=== PATIENT | female | born 1980 | race Caucasian/White ===

== ENCOUNTER 2020-09-08 18:10 | Emergency (ER) | payer OTHER, SELFPAY ==
[2020-09-08 18:19] VITALS: BP 121/63; PULSE 75; RESP 16; TEMP 36.6; O2SAT 99; BMI 21.2
--- NOTE | 2020-09-08 18:41 | ED.SKABFB ---
HPI - Skin/Abscess/Foreign Bdy General Chief complaint: Skin/Abscess/Foreign Body Stated complaint: lac Time Seen by Provider: 09/08/20 18:33 Source: patient Mode of arrival: ambulatory History of Present Illness HPI narrative: 40-year-old female with no significant past medical history presenting to the ED complaining of laceration to left thumb s/p slicing it on broken ceramic mug around 3:00 p.m. this afternoon at work. Tetanus unknown. Denies crush injury/injury to other area, numbness/tingling, weakness, decreased range of motion, fever. complaint: laceration Related Data Allergies Allergy/AdvReac Type Severity Reaction Status Date / Time No Known Allergies Allergy Verified 09/08/20 18:23 Review of Systems Review of Systems: Constitutional: No Weight loss, No Fever, No Chills Musculoskeletal: No joint pain, No Myalgias, No Joint Swelling Skin: No Skin Lesions, No rash, +laceration Neuro: No Weakness, No Numbness, No Paresthesias Yes all other systems are reviewed and are negative [facility] Past Medical History Attestation statement: The following information was validated with the patient. Social History Social History Advance Directives: No Advance Directives Information Provided: No Physical Exam Vital Signs: Vital Signs: Last Vital Signs Temp 97.8 F 09/08/20 18:19 Pulse 75 09/08/20 18:19 Resp 16 09/08/20 18:19 BP 121/63 09/08/20 18:19 Pulse Ox 99 09/08/20 18:19 Body Mass Index 21.2 Const: General: cooperative and healthy appearing Orientation/consciousness: patient oriented x3 Limitations: no limitations HENMT: Head: Yes normal to inspection Ears: hearing grossly normal bilaterally General nose exam: Normal external nose present Face and sinus: Yes normal facial exam Eyes: General: appearance normal, both eyes and all related structures EOM: EOMs intact bilaterally Neck: Neck: Yes normal visual inspection and Yes no meningeal signs Resp: Effort & Inspection: normal respiratory effort Cardio: Rate: regular rate Peripheral pulses: radial pulses present GI: Inspection: Yes normal to inspection Skin: Rashes: no rashes Trauma: laceration (1.5cm superficial laceration to left thumb MCP volar aspect) Neuro: General: patient oriented x3 and no meningeal signs Gait exam (Neuro): Normal gait present Extrem: Other: Left hand/wrist with full range of motion. Neurovascularly intact. Tchugi-dw-[id number] opposition intact General: Yes normal to inspection Procedures Laceration Laceration 1: Site: hand (thumb) Side (If applicable): left Size (cm): 1.5 Description: linear Depth: simple, single layer Local Anesthetic: lidocaine 1% Amount of anesthesia used (mL): 2 Pre-repair: irrigated extensively Skin layer closed with: nylon Size (cm): 5-0 Number of sutures: 1 Technique: simple, interrupted MDM - Skin/Abscess/Foreign Bdy MDM Narrative Medical decision making narrative: 40-year-old female with no significant past medical history presenting to the ED complaining of laceration to left thumb s/p slicing it on broken ceramic mug around 3:00 p.m. this afternoon at work. On exam VSS, NAD, small superfiical laceration noted to L thumb. FROM/NV intact. Will update tetnus and suture wound Discharge Plan Discharge Clinical Impression: Laceration Patient Disposition: Home, Self-Care Instructions: Finger Laceration (ED) Additional Instructions: Your laceration was repaired today in the ED Keep dry for the next 24 hours Keep clean Keep covered if your work/in order area, however let air get to it if your at-home You need to return to the emergency department, or in Urgent Care in 7-10 days to have the suture removed Your tetanus was also updated today Area begins to look infected, is red, there is drainage, you have fever, swelling, or pain becomes unbearable return to the ED Referrals: Jess Cisneros MD [Primary Care Provider] - 1 week
[2020-09-08] MEDS: Lidocaine HCl 1 % MPF 5 ML VIAL SUBCUT (19:35)
== END 2020-09-08 19:49 | disposition home or self-care (01) ==
PROVIDERS: Emergency Provider Emergency Medicine; PCP Internal Medicine
DX: S61.012A Laceration without foreign body of left thumb without damage to nail, initial encounter (principal); W25.XXXA Contact with sharp glass, initial encounter; Y93.89 Activity, other specified; Y92.9 Unspecified place or not applicable; Y99.0 Civilian activity done for income or pay
CPT/HCPCS: 12001; 90471; 90715; 99284

== ENCOUNTER 2020-09-15 11:12 | Emergency (ER) | payer OTHER, SELFPAY ==
[2020-09-15 11:13] VITALS: BP 103/45; PULSE 802; RESP 18; TEMP 36.4; O2SAT 99; BMI 21.2
--- NOTE | 2020-09-15 11:44 | ED_ITS ---
HPI - Recheck/Abnormal Lab/Rx General Chief Complaint: Wound/Laceration Stated Complaint: SUTURE REMOVAL Time Seen by Provider: 09/15/20 11:37 Source: patient Mode of arrival: ambulatory Limitations: no limitations History of Present Illness HPI narrative: 40-year-old female presenting to the ED for suture removal after she was seen here on 09/08/2019 and had 1 suture placed to her left hand. Denies any complications. Related Data Previous Rx's Medication Instructions Recorded cephalexin 500 mg capsule 500 mg PO BID 7 Days #14 cap 09/12/20 Allergies Allergy/AdvReac Type Severity Reaction Status Date / Time No Known Allergies Allergy Verified 09/08/20 18:23 Review of Systems Review of Systems: Constitutional : No Fever, No Chills, Cardiovascular : No Chest Pain, No SOB Respiratory : No Dyspnea Gastrointestinal : No abdominal pain Musculoskeletal : No Joint Swelling Skin : No Foreign bodies, No rash, No surrounding erythema, no drainage Neuro : No Weakness, No Numbness/tingling Psych : No SI/HI/thoughts of self injury Yes all other systems are reviewed and are negative [facility] Past Medical History Attestation statement: The following information was validated with the patient. Social History Social History Advance Directives: No Advance Directives Information Provided: No Physical Exam Vital Signs: Vital Signs: Last Vital Signs Temp 97.5 F 09/15/20 11:13 Pulse 802 H 09/15/20 11:13 Resp 18 09/15/20 11:13 BP 103/45 L 09/15/20 11:13 Pulse Ox 99 09/15/20 11:13 Body Mass Index 21.2 vital signs have been reviewed as normal and appeared to be correct. Blood pressure normal. Heart rate normal. Respiration rate normal. Temperature normal. Oxygen saturation normal. Appearance: Alert. Oriented X3. No acute distress. Head: Normal external exam. Normocephalic. Eyes: PERRLA. EOMI. Conjunctiva and sclera normal. Eyelids normal. ENT: Pharynx normal. Uvula midline. Moist mucous membranes. Neck: Normal inspection. Neck supple. FROM. No adenopathy. No meningeal signs. CVS: Normal heart rate and rhythm. Heart sound normal. No murmurs noted. Pulses normal throughout. Respiratory: No respiratory distress. Painless inspiration. Breath sounds normal. No wheezes/rales/rhonchi noted. Chest nontender. No accessory muscle usage noted or decreased air movement noted. Back: No CVA tenderness. Full range of motion noted. Skin: Skin warm and dry. Normal skin color. Normal skin turgor. No rashes/lesions/lacerations noted. Extremities: To left hand dorsal aspect there is a healed wound with [address] no surrounding erythema/drainage/foreign bodies/streaking/induration or fluctuance or signs of infection noted. Extremities exhibit normal range of motion. Extremities nontender. Neuro: Oriented X 3. No motor deficit. No sensory deficit. Reflexes normal. Course Course Course Narrative: Patient is now status post suture removal. Tolerated procedure well. No complications. Will DC home at this time. MDM - Recheck/Abnormal Lab/Rx Medical Records Attestation: I reviewed the patient's medical records. Discharge Plan Discharge Clinical Impression: Visit for suture removal Patient Disposition: Home, Self-Care Instructions: Stitches Removal (ED) Prescriptions: No Action cephalexin [Keflex] 500 mg capsule 500 mg PO BID 7 Days Qty: 14 RF: 0 Referrals: Jess Cisneros MD [Primary Care Provider] - 2 days Print Language: Divehi
== END 2020-09-15 11:50 | disposition home or self-care (01) ==
PROVIDERS: Emergency Provider Emergency Medicine; PCP Internal Medicine
DX: Z48.02 Encounter for removal of sutures (principal); Z79.899 Other long term (current) drug therapy
CPT/HCPCS: 99283

== ENCOUNTER 2022-01-07 05:59 | Outpatient (REF) | payer OTHER, SELFPAY ==
[2022-01-07 08:08] LABS: Alanine Aminotransferase 14 U/L (0-31); Albumin Level 3.8 g/dL (3.5-5.0); Alkaline Phosphatase 48 U/L (39-117); Anion Gap 11 (12-20); Aspartate Amino Transferase 18 U/L (5-31); Bilirubin Total 0.6 mg/dL (0.0-1.0); Blood Urea Nitrogen 14 mg/dL (9-16); Carbon Dioxide 21 mmol/L (22-29); Chloride 109 mmol/L (96-108); Cholesterol 158 mg/dL; Estimated Glomerular Filt Rate > 60; Glucose Random 88 mg/dL (60-115); HDL Cholesterol 66 mg/dL; LDL Cholesterol Calculated 77 mg/dl; Potassium 4.6 mmol/L (3.3-5.1); Sodium 136 mmol/L (135-145); Total Protein 6.4 g/dL (6.5-8.0); Triglycerides 77 mg/dL
== END 2022-01-07 06:00 | disposition home or self-care (01) ==
LOC: HO.LAB 05:59
PROVIDERS: PCP Internal Medicine; Visit Provider Internal Medicine
DX: Z00.00 Encounter for general adult medical examination without abnormal findings (principal); Z13.220 Encounter for screening for lipoid disorders
CPT/HCPCS: 36415; 80053; 80061

== ENCOUNTER 2022-04-25 21:14 | Emergency (ER) | payer OTHER, SELFPAY ==
[2022-04-25 21:42] VITALS: BP 120/64; PULSE 70; RESP 16; TEMP 36.9; O2SAT 98
--- NOTE | 2022-04-25 22:22 | ED_ITS ---
HPI - General Adult General Chief complaint: General Medical Stated complaint: Left hand rash Time Seen by Provider: 04/25/22 22:19 Source: patient Mode of arrival: ambulatory Limitations: no limitations History of Present Illness HPI narrative: 42-year-old female presents with redness, itchiness and swelling to the left wrist status post burning herself a 3 weeks ago, patient tells me that she brought herself to the medial aspect of the left wrist, and this burn has been nonhealing, she tells me that the redness has gotten worse and has gotten extremely itchy. Her PCP prescribed her prednisone which did not work. She also mentions that this site is slightly warm. She denies numbness, tingling or pain with range of motion of wrist. Related Data Home Medications Medication Instructions Recorded Confirmed melatonin 10 mg capsule 10 mg PO BEDTIME PRN 12/20/21 01/01/22 byolmqip-gwqrcnf-qmui-iron 18 tab PO 12/20/21 01/01/22 mg-FA 400 mcg-vit K 25 mcg tablet (One-A-Day Women's Complete) norgestimate-ethinyl estradiol 1 tab PO DAILY 12/20/21 01/01/22 0.18 mg/0.215mg/0.25mg-35 mcg(28)tablet (Tri-Estarylla) Previous Rx's Medication Instructions Recorded bupropion HCl 150 mg 24 hr tablet, 150 mg PO QAM 90 days #90 tabs 01/29/22 extended release hydrocortisone 2.5 % topical cream 1 appl topical BID PRN skin 04/12/22 irritation #20 grams prednisone 10 mg tablet 10 mg PO DAILY PRN allergy 6 days 04/12/22 #12 tabs cephalexin 500 mg tablet 500 mg PO Q6H 7 days #28 tabs 04/25/22 doxycycline hyclate 100 mg capsule 100 mg PO BID 7 days #14 caps 04/25/22 hydroxyzine HCl 25 mg tablet 25 mg PO BEDTIME #10 tabs 04/25/22 prednisone 20 mg tablet 20 mg PO DAILY 5 days #5 tabs 04/25/22 Allergies Allergy/AdvReac Type Severity Reaction Status Date / Time No Known Allergies Allergy Verified 04/25/22 21:42 Review of Systems Review of Systems: Constitutional : No Fever, No Chills, Cardiovascular : No Chest Pain, No SOB Respiratory : No Dyspnea Gastrointestinal : No abdominal pain Musculoskeletal : No Joint Swelling Skin : + rash, No skin laceration Neuro : No Weakness, No Numbness Psych : No SI/HI Yes all other systems are reviewed and are negative [facility] Past Medical History Attestation statement: The following information was validated with the patient. Source: old records reviewed and nursing notes reviewed Medical History Foot pain Mild recurrent major depression Physical exam Surgical History History of esophagogastroduodenoscopy (EGD) History of tonsillectomy Family History Family History Father No problems noted. Mother Diabetes Hypertension Stroke Heart attack Social History Social History Housing: House Alcohol intake: current Alcohol intake frequency: a few times a week Alcohol type: wine Patient Tobacco Use Status: Current everyday Tobacco user Tobacco use type: Cigarette Cigarettes Per Day: 5 e-Cigarette/Vaping Use: Never Used Second Hand Smoke Exposure: No Advance Directives: No Advance Directives Information Provided: No service: No Current occupational status: employed Cognitive needs: No Hearing needs: No Vision needs: Yes Physical Exam ED Vital Signs: Vital Signs - 24 hr 04/25/22 21:42 Temperature 98.4 F Pulse Rate 70 Respiratory Rate 16 Blood Pressure 120/64 Pulse Oximetry 98 Oxygen Delivery Method Room Air BMI result Body Mass Index 20.0 vss Appearance: Alert.? Oriented X3.? No acute distress.? Head: Normocephalic, atraumatic, no step-offs or deformities Eyes: Pupils equal, round and reactive to light.? CVS: Normal heart rate and rhythm.? Pulses normal.? Respiratory: No respiratory distress.? Breath sounds normal.? Abdomen: Soft and nontender.? Skin: Skin warm and dry.? Normal skin color.? Normal skin turgor.?+ small healing burn to the medial aspect of left wrist, with overlying and surrounding cellulitis, warmth. Extremities: No lower extremity edema.? No calf ttp. 5/5 strength to bilateral upper and lower extremities Neuro: Oriented X 3.? No motor deficit.? No sensory deficit. CN 2-12 intact Course Reevaluation(s) Reevaluation #1: Patient will be discharged home with prednisone, Atarax for itchiness, doxycycline and Keflex. Advised to return with new or worsening symptoms. Outlined on her discharge, i feel comfortable w discharge w/ pcp follow up. Time: 22:24 Medical Decision Making MDM Narrative Medical decision making narrative: 2231 [age] years female presents with a nonhealing burn to the left risk with overlying cellulitis. Physical examination with cellulitis to left wrist, no pain with range of motion of wrist. History and physical examination consistent with cellulitis, unlikely septic joint. Plan at this time is to discharge patient home. Medical Records Medical records reviewed: Yes I reviewed the patient's medical records. Lab Data Lab results reviewed: Yes I reviewed the patient's lab results. Discharge Plan Discharge Clinical Impression: Cellulitis Patient Disposition: Home, Self-Care Instructions: Cellulitis (ED) Additional Instructions: Take your medications as prescribed. If you were prescribed antibiotics today, it is important that you take your medication to their entirety, do not skip any doses, do not finish them early. Follow-up with your primary care provider this week. Return to the emergency department with new or worsening symptoms. Such as fevers, chills, chest pain, shortness of breath, nausea, vomiting, dizziness, headache, vision changes, lethargy, numbness, tingling In case of emergency call 911 Prescriptions: New doxycycline hyclate 100 mg capsule 100 mg PO BID 7 Days Qty: 14 0RF prednisone 20 mg tablet 20 mg PO DAILY 5 Days Qty: 5 0RF cephalexin 500 mg tablet 500 mg PO Q6H 7 Days Qty: 28 0RF hydroxyzine HCl 25 mg tablet 25 mg PO BEDTIME Qty: 10 0RF No Action bupropion HCl 150 mg tablet extended release 24 hr 150 mg PO QAM 90 Days Qty: 90 0RF prednisone 10 mg tablet 10 mg PO DAILY PRN (Reason: allergy) 6 Days Qty: 12 0RF Rx Instructions: Take 3 tabs for 2 days, then 2 tabs for 2 days, then 1 tab for 2 days hydrocortisone 2.5 % cream 1 appl topical BID PRN (Reason: skin irritation) Qty: 20 0RF norgestimate-ethinyl estradiol [Tri-Estarylla] 0.18/0.215/0.25 mg-35 mcg (28) tablet 1 tab PO DAILY One-A-Day Women's Complete 18 mg-400 mcg- 25 mcg tablet PO melatonin 10 mg capsule 10 mg PO BEDTIME PRN Referrals: Jess Cisneros MD [Primary Care Provider] - 2 days Stand Alone Forms: Work/School Release
== END 2022-04-25 22:33 | disposition home or self-care (01) ==
PROVIDERS: Emergency Provider Internal Medicine; PCP Internal Medicine
DX: Z48.00 Encounter for change or removal of nonsurgical wound dressing (principal); L03.114 Cellulitis of left upper limb
CPT/HCPCS: 99282; 99283

== ENCOUNTER 2022-04-30 09:47 | Emergency (ER) | payer OTHER, SELFPAY ==
[2022-04-30 09:49] VITALS: BP 143/64; PULSE 108; RESP 18; TEMP 36.8; O2SAT 96
--- NOTE | 2022-04-30 10:21 | ED_ITS ---
HPI - Skin/Abscess/Foreign Bdy General Chief complaint: Skin/Abscess/Foreign Body Stated complaint: L arm swelling/pain/itching Time Seen by Provider: 04/30/22 09:53 Source: patient Mode of arrival: ambulatory History of Present Illness HPI narrative: 42-year-old female with a past medical history of cellulitis, presenting to the ED complaining of worsening rash to LUE over the past 3 weeks. Patient states symptoms initially began with burn to left wrist, saw PCP due to erythema and extreme itching, finished course of prednisone without relief. Patient was evaluated in our ED on 04/25/22 for worsening erythema/pruritus prescribed doxycycline/Keflex, hydroxyzine and 5 day course of prednisone with minimal relief. States symptoms have been waxing and waning since onset, worsening today. Does report history of very sensitive skin. Denies fever, chills, drainage from area, numbness, tingling, weakness, decreased ROM, SOB. Denies recent travel/camping, no tick or insect bites MD complaint: rash Onset (ago): week(s) Location: LUE Severity: similar to previous episodes Related Data Home Medications Medication Instructions Recorded Confirmed melatonin 10 mg capsule 10 mg PO BEDTIME PRN 12/20/21 01/01/22 uqqlezye-rbzqcfw-ckbl-iron 18 tab PO 12/20/21 01/01/22 mg-FA 400 mcg-vit K 25 mcg tablet (One-A-Day Women's Complete) norgestimate-ethinyl estradiol 1 tab PO DAILY 12/20/21 01/01/22 0.18 mg/0.215mg/0.25mg-35 mcg(28)tablet (Tri-Estarylla) Previous Rx's Medication Instructions Recorded bupropion HCl 150 mg 24 hr tablet, 150 mg PO QAM 90 days #90 tabs 01/29/22 extended release hydrocortisone 2.5 % topical cream 1 appl topical BID PRN skin 04/12/22 irritation #20 grams prednisone 10 mg tablet 10 mg PO DAILY PRN allergy 6 days 04/12/22 #12 tabs cephalexin 500 mg tablet 500 mg PO Q6H 7 days #28 tabs 04/25/22 doxycycline hyclate 100 mg capsule 100 mg PO BID 7 days #14 caps 04/25/22 hydroxyzine HCl 25 mg tablet 25 mg PO BEDTIME #10 tabs 04/25/22 prednisone 20 mg tablet 20 mg PO DAILY 5 days #5 tabs 04/25/22 cephalexin 500 mg capsule 500 mg PO QID 3 days #12 caps 04/30/22 cetirizine 10 mg tablet (Zyrtec) 10 mg PO DAILY #14 tabs 04/30/22 diphenhydramine HCl 25 mg capsule 25 mg PO TID PRN allergy symptoms 04/30/22 (Benadryl) #14 caps doxycycline hyclate 100 mg tablet 100 mg PO BID 3 days #6 tabs 04/30/22 triamcinolone acetonide 0.05 % 1 appl topical BID #110 grams 04/30/22 topical ointment Allergies Allergy/AdvReac Type Severity Reaction Status Date / Time No Known Allergies Allergy Verified 04/25/22 21:42 Review of Systems Review of Systems: Constitutional: No Fever, No Chills ENT/Mouth: No Ear Pain, No Nasal Congestion, No sore throat, No Rhinorrhea, No Swallowing Difficulty Cardiovascular: No Chest Pain, No SOB Respiratory: No Cough, No Sputum, No Wheezing Gastrointestinal: No Nausea, No Vomiting, No Diarrhea, No Constipation, No Abdominal pain Musculoskeletal: No joint pain, No Myalgias, No Joint Swelling Skin: No Skin Lesions, + rash Neuro: No Weakness, No Numbness, No Paresthesias Yes all other systems are reviewed and are negative Constitutional: Constitutional: Reports as per [facility] Past Medical History Attestation statement: The following information was validated with the patient. Medical History Foot pain Mild recurrent major depression Physical exam Surgical History History of esophagogastroduodenoscopy (EGD) History of tonsillectomy Family History Family History Father No problems noted. Mother Diabetes Hypertension Stroke Heart attack Social History Social History Housing: House Alcohol intake: current Alcohol intake frequency: a few times a week Alcohol type: wine Patient Tobacco Use Status: Current everyday Tobacco user Tobacco use type: Cigarette Cigarettes Per Day: 5 e-Cigarette/Vaping Use: Never Used Second Hand Smoke Exposure: No Advance Directives: Yes Advance Directives Information Provided: Yes Advance Directives on File: No service: No Current occupational status: employed Cognitive needs: No Hearing needs: No Vision needs: Yes Physical Exam Vital Signs: Vital Signs: Last Vital Signs Temp 98.3 F 04/30/22 09:49 Pulse 108 H 04/30/22 09:49 Resp 18 04/30/22 09:49 BP 143/64 H 04/30/22 09:49 Pulse Ox 96 04/30/22 09:49 O2 Del Method 04/30/22 09:49 BMI result Body Mass Index 20.0 Const: General: cooperative, healthy appearing and no acute distress Orientation/consciousness: patient oriented x3 Limitations: no limitations HEENT: Head: Yes normal to inspection and Yes atraumatic Ears: hearing grossly normal bilaterally General nose exam: Normal external nose present Face and sinus: Yes normal facial exam Mouth: Normal oral and palatal mucosa present Throat: Yes posterior oropharynx normal, Yes tonsils normal and Yes uvula midline Eyes: General: appearance normal, both eyes and all related structures EOM: EOMs intact bilaterally Neck: Neck: Yes normal visual inspection and Yes no meningeal signs Resp: Effort & Inspection: normal respiratory effort, not labored and no respiratory distress Auscultation: clear to auscultation bilaterally Cardio: Rate: regular rate Heart sounds: S1 normal heart sound present and S2 normal heart sound present Skin: Other: + small healing burn noted to distal medial aspect of left wrist with mild surrounding erythema/warmth. + Noted coalescing papular rash with overlying excoriations extending up forearm past elbow to distal upper arm. Not circumferential. Rash is blanchable. No mucous membrane or palm/sole involvement Full range of motion intact. Neurovascular intact Wounds: no wounds Neuro: General: patient oriented x3, tone normal and no meningeal signs Gait exam (Neuro): Normal gait present Extrem: General: Yes normal to inspection MDM - Skin/Abscess/Foreign Bdy MDM Narrative Medical decision making narrative: 42-year-old female with a past medical history of cellulitis, presenting to the ED complaining of worsening rash to LUE over the past 3 weeks. On exam mildly tachycardic likely due to anxiety, physical exam as above with noted burning and maculopapular rashes overlying excoriations, mildly warm to touch. Concern for allergic reaction/contact dermatitis with mild overlying cellulitis. Low suspicion for severe sepsis. Low concern for septic joint/arthritis. No evidence of anaphylaxis, lower concern for tick-borne illness Plan: Dermatology referral, extend doxycycline/Keflex to 10 day course, topical triamcinolone, p.o. Benadryl Results discussed with patient including worrisome signs and symptoms and strict return precautions, and when to return to the emergency department. They verbalized understanding and feel safe for discharge at this time. Medical Records Attestation: I reviewed the patient's medical records. Lab Data Attestation: I reviewed the patient's lab results. Discharge Plan Discharge Clinical Impression: Contact dermatitis Patient Disposition: Home, Self-Care Instructions: Contact Dermatitis (ED) Additional Instructions: Continue taking previously prescribed antibiotics, we extended your course to 10 full days Start using topical triamcinolone which is a topical steroid, avoid application to your hands, face, or genital region as potentially can discolored skin You can stop taking hydroxyzine and start taking Zyrtec daily in the morning as this will not make you drowsy. Also apply Eucerin which is an [id number]-tow-syulqae lotion Start taking Benadryl every 6 hours as needed for itching/allergic reaction symptoms. You need to follow-up with dermatology. If the area worsens, you have fever, drainage from any area, increased swelling or shortness of breath return to the emergency department Prescriptions: New diphenhydramine HCl [Benadryl] 25 mg capsule 25 mg PO TID PRN (Reason: allergy symptoms) Qty: 14 0RF cephalexin 500 mg capsule 500 mg PO QID 3 Days Qty: 12 0RF doxycycline hyclate 100 mg tablet 100 mg PO BID 3 Days Qty: 6 0RF cetirizine [Zyrtec] 10 mg tablet 10 mg PO DAILY Qty: 14 0RF triamcinolone acetonide 0.05 % ointment 1 appl topical BID Qty: 110 0RF No Action bupropion HCl 150 mg tablet extended release 24 hr 150 mg PO QAM 90 Days Qty: 90 0RF prednisone 10 mg tablet 10 mg PO DAILY PRN (Reason: allergy) 6 Days Qty: 12 0RF Rx Instructions: Take 3 tabs for 2 days, then 2 tabs for 2 days, then 1 tab for 2 days doxycycline hyclate 100 mg capsule 100 mg PO BID 7 Days Qty: 14 0RF prednisone 20 mg tablet 20 mg PO DAILY 5 Days Qty: 5 0RF cephalexin 500 mg tablet 500 mg PO Q6H 7 Days Qty: 28 0RF hydroxyzine HCl 25 mg tablet 25 mg PO BEDTIME Qty: 10 0RF hydrocortisone 2.5 % cream 1 appl topical BID PRN (Reason: skin irritation) Qty: 20 0RF norgestimate-ethinyl estradiol [Tri-Estarylla] 0.18/0.215/0.25 mg-35 mcg (28) tablet 1 tab PO DAILY One-A-Day Women's Complete 18 mg-400 mcg- 25 mcg tablet PO melatonin 10 mg capsule 10 mg PO BEDTIME PRN Referrals: Sagrario Peguero PA [Physician Automobile Damage Field Appraiser] - Romero Johns MD [Physician] - Dawna Lloyd NP [Nurse Practitioner] - Yaritza Wild MD [Physician] - MARIEL SEWELL [Physician Automobile Damage Field Appraiser] - Stand Alone Forms: Work/School Release
[2022-04-30] MEDS: diphenhydrAMINE HCL 25 MG TABLET PO (10:32)
== END 2022-04-30 11:19 | disposition home or self-care (01) ==
PROVIDERS: Emergency Provider Emergency Medicine; PCP Internal Medicine
DX: R60.0 Localized edema (principal); L25.9 Unspecified contact dermatitis, unspecified cause; F17.210 Nicotine dependence, cigarettes, uncomplicated; Z71.6 Tobacco abuse counseling; Z79.899 Other long term (current) drug therapy
CPT/HCPCS: 99283; Q0163

== ENCOUNTER 2022-10-15 08:04 | Outpatient (REF) | payer OTHER, SELFPAY ==
[2022-10-15 09:37] LABS: Hematocrit 36.7 % (37.0-47.0); Hemoglobin 12.4 g/dl (12.0-16.0); Mean Corpuscular HGB Conc 33.8 g/dl (31.0-35.0); Mean Corpuscular Hemoglobin 32.5 pg (27.0-33.0); Mean Corpuscular Volume 96.1 fL (80.0-98.0); Mean Platelet Volume 11.7 fL (9.4-12.3); Platelet Count 210 X10*3/uL (160-400); Red Blood Count 3.82 X10*6/uL (4.20-5.50); Red Cell Distribution Width 12.2 % (11.0-16.0); White Blood Count 6.1 X10*3/uL (4.8-10.8)
[2022-10-15 10:35] LABS: Alanine Aminotransferase 21 U/L (0-31); Albumin Level 4.1 g/dL (3.5-5.0); Alkaline Phosphatase 48 U/L (39-117); Anion Gap 13 (12-20); Aspartate Amino Transferase 21 U/L (5-31); Bilirubin Total 0.3 mg/dL (0.0-1.0); Blood Urea Nitrogen 17 mg/dL (9-16); C Reactive Protein < 0.10 mg/dL (< or = 0.50); Calcium 9.1 mg/dL (8.4-10.2); Carbon Dioxide 22 mmol/L (22-29); Chloride 110 mmol/L (96-108); Estimated Glomerular Filt Rate > 60; Glucose Random 92 mg/dL (60-115); Iron 81 mcg/dL (30-160); Percent Iron Saturation 24 % (15-50); Potassium 4.8 mmol/L (3.3-5.1); Sodium 140 mmol/L (135-145); Total Iron Binding Capacity 344 mcg/dL (228-428); Total Protein 6.5 g/dL (6.5-8.0); Unsaturated Iron Binding 263 ug/dL
[2022-10-15 10:42] LABS: Ferritin 88 ng/mL (10-250)
[2022-10-15 11:16] LABS: Free T4 (Free Thyroxine) 0.75 ng/dL (0.71-1.85)
[2022-10-15 14:26] LABS: Campylobacter Not Detected (Not Detect.); E. coli EAEC Not Detected (Not Detect.); Plesiomonas shigelloides Not Detected (Not Detect.); Salmonella Not Detected (Not Detect.); Vibrio Not Detected (Not Detect.); Vibrio Cholerae Not Detected (Not Detect.); Yersinia enterocolitica Not Detected (Not Detect.)
[2022-10-15 14:27] LABS: Adenovirus F 40/41 Not Detected (Not Detect.); Astrovirus Not Detected (Not Detect.); Cryptosporidium Not Detected (Not Detect.); Cyclospora cayetanensis Not Detected (Not Detect.); E. coli EPEC Not Detected (Not Detect.); E. coli ETEC Not Detected (Not Detect.); E. coli STEC Not Detected (Not Detect.); Entamoeba histolytica Not Detected (Not Detect.); Giardia lamblia Not Detected (Not Detect.); Norovirus GI/GII Not Detected (Not Detect.); Rotavirus A Not Detected (Not Detect.); Sapovirus Not Detected (Not Detect.); Shigella sp./EIEC Not Detected (Not Detect.)
[2022-10-17 13:28] LABS: Transglutaminase IgA <1.0 U/mL
[2022-10-17 14:23] LABS: Immunoglobulin A 169 mg/dL (47-310)
[2022-10-21 02:10] LABS: Calprotectin, Fecal 10 mcg/g
== END 2022-10-15 08:05 | disposition home or self-care (01) ==
LOC: HO.LAB 08:04
PROVIDERS: PCP Internal Medicine; Visit Provider Internal Medicine
DX: R10.9 Unspecified abdominal pain (principal); R19.7 Diarrhea, unspecified; F17.210 Nicotine dependence, cigarettes, uncomplicated
CPT/HCPCS: 36415; 80053; 82306; 82728; 82784; 83540; 83993; 84439; 84443; 85027; 86140; 86364; 87507; 99202

== ENCOUNTER 2022-10-26 23:41 | Emergency (ER) | payer OTHER, SELFPAY ==
[2022-10-26 23:52] VITALS: BP 123/66; PULSE 85; RESP 16; TEMP 36.6; O2SAT 100; BMI 21.2
[2022-10-27 01:34] LABS: MANUAL DIFF FLAG NO
[2022-10-27 01:39] LABS: Basophils Absolute Auto 0.1 X10*3/uL (0.0-0.2); Basophils Percent Auto 0.8 % (0-2); Eosinophils Absolute Auto 0.3 X10*3/uL (0.0-0.4); Eosinophils Percent Auto 4.5 % (0-4); Hematocrit 35.7 % (37.0-47.0); Imm Gran Abs Auto 0.03 X10*3/uL (0.00-0.03); Imm Gran Pct Auto 0.4 % (0.0-0.4); Lymphocytes Absolute Auto 1.8 X10*3/uL (1.2-4.9); Lymphocytes Percent Auto 24.4 % (20-40); Mean Corpuscular HGB Conc 33.6 g/dl (31.0-35.0); Mean Corpuscular Hemoglobin 32.1 pg (27.0-33.0); Mean Corpuscular Volume 95.5 fL (80.0-98.0); Mean Platelet Volume 10.9 fL (9.4-12.3); Monocytes Absolute Auto 0.7 X10*3/uL (0.1-1.2); Monocytes Percent Auto 9.1 % (2-11); Neutrophils Absolute Auto 4.5 x10*3/uL (2.0-8.3); Neutrophils Percent Auto 60.8 % (45-73); Platelet Count 153 X10*3/uL (160-400); Red Blood Count 3.74 X10*6/uL (4.20-5.50); Red Cell Distribution Width 11.9 % (11.0-16.0); White Blood Count 7.4 X10*3/uL (4.8-10.8)
[2022-10-27 01:54] LABS: Alanine Aminotransferase 20 U/L (0-31); Albumin Level 3.9 g/dL (3.5-5.0); Alkaline Phosphatase 52 U/L (39-117); Anion Gap 14 (12-20); Aspartate Amino Transferase 20 U/L (5-31); Bilirubin Total 0.2 mg/dL (0.0-1.0); Blood Urea Nitrogen 11 mg/dL (9-16); Calcium 8.7 mg/dL (8.4-10.2); Carbon Dioxide 22 mmol/L (22-29); Chloride 110 mmol/L (96-108); Estimated Glomerular Filt Rate > 60; Glucose Random 99 mg/dL (60-115); Potassium 4.5 mmol/L (3.3-5.1); Sodium 141 mmol/L (135-145); Total Protein 6.3 g/dL (6.5-8.0)
--- NOTE | 2022-10-27 01:57 | ED.FEMALEGU ---
HPI - Female Genitourinary General Chief complaint: Skin/Abscess/Foreign Body Stated complaint: hemorroids/abscess Time Seen by Provider: 10/27/22 01:57 Source: patient Mode of arrival: ambulatory Limitations: no limitations History of Present Illness HPI Narrative: Patient history of hemorrhoids complaining of increased pain and swelling since yesterday with small amount of blood while moving her bowels also has a rash around that area after she applied some cream for hemorrhoids Related Data Home Medications Medication Instructions Recorded Confirmed melatonin 10 mg capsule 10 mg PO BEDTIME PRN 12/20/21 01/01/22 voquoqhj-twsteqh-scjo-iron 18 tab PO 12/20/21 01/01/22 mg-FA 400 mcg-vit K 25 mcg tablet (One-A-Day Women's Complete) norgestimate-ethinyl estradiol 1 tab PO DAILY 12/20/21 01/01/22 0.18 mg/0.215mg/0.25mg-35 mcg(28)tablet (Tri-Estarylla) Previous Rx's Medication Instructions Recorded bupropion HCl 150 mg 24 hr tablet, 150 mg PO QAM 90 days #90 tabs 01/29/22 extended release hydrocortisone 2.5 % topical cream 1 appl topical BID PRN skin 04/12/22 irritation #20 grams prednisone 10 mg tablet 10 mg PO DAILY PRN allergy 6 days 04/12/22 #12 tabs cephalexin 500 mg tablet 500 mg PO Q6H 7 days #28 tabs 04/25/22 doxycycline hyclate 100 mg capsule 100 mg PO BID 7 days #14 caps 04/25/22 hydroxyzine HCl 25 mg tablet 25 mg PO BEDTIME #10 tabs 04/25/22 prednisone 20 mg tablet 20 mg PO DAILY 5 days #5 tabs 04/25/22 cephalexin 500 mg capsule 500 mg PO QID 3 days #12 caps 04/30/22 cetirizine 10 mg tablet (Zyrtec) 10 mg PO DAILY #14 tabs 04/30/22 diphenhydramine HCl 25 mg capsule 25 mg PO TID PRN allergy symptoms 04/30/22 (Benadryl) #14 caps doxycycline hyclate 100 mg tablet 100 mg PO BID 3 days #6 tabs 04/30/22 triamcinolone acetonide 0.05 % 1 appl topical BID #110 grams 04/30/22 topical ointment hydrocortisone acetate 25 mg 25 mg [place] BID #12 ea 10/27/22 rectal suppository (Anusol-HC) Allergies Allergy/AdvReac Type Severity Reaction Status Date / Time No Known Allergies Allergy Verified 10/26/22 23:56 Review of Systems Review of Systems: Yes all other systems are reviewed and are negative FOR[facility]LY [facility] Past Medical History Medical History Foot pain Mild recurrent major depression Physical exam Surgical History History of esophagogastroduodenoscopy (EGD) History of tonsillectomy Family History Family History Father No problems noted. Mother Diabetes Hypertension Stroke Heart attack Social History Social History Housing: House Alcohol intake: current Alcohol intake frequency: a few times a week Alcohol type: wine Patient Tobacco Use Status: Current everyday Tobacco user Tobacco use type: Cigarette Cigarettes Per Day: 5 e-Cigarette/Vaping Use: Never Used Second Hand Smoke Exposure: No Advance Directives: No service: No Current occupational status: employed Cognitive needs: No Hearing needs: No Vision needs: Yes Physical Exam Vital Signs: Vital Signs: Last Vital Signs Temp 97.8 F 10/26/22 23:52 Pulse 85 10/26/22 23:52 Resp 16 10/26/22 23:52 BP 123/66 10/26/22 23:52 Pulse Ox 100 10/26/22 23:52 O2 Del Method 10/26/22 23:52 BMI result Body Mass Index 21.2 Appearance: Alert. Oriented X3. No acute distress. ENT: Pharynx normal. Oral Mucosa moist Neck: Normal inspection. Neck supple. CVS: Normal heart rate and rhythm. Pulses normal. Respiratory: No respiratory distress. Equal air entry bilateral, Abdomen: Soft and nontender. Bowel sounds are present, Skin: Skin warm and dry. Normal skin color. Normal skin turgor. Rectal: Thrombosed tender external hemorrhoid red 03:00 o'clock and 06:00 o'clock Extremities: No lower extremity edema. No calf tenderness Neuro: Oriented X 3. Medications Administered Discontinued Medications Generic Name Dose Route Start Last Admin Trade Name Shania PRN Reason Stop Dose Admin Diphenhydramine HCl 50 mg 10/27/22 02:37 10/27/22 02:46 Diphenhydramine Hcl 25 Mg Capsule PO 10/27/22 02:38 50 mg ONCE ONE Administration Medical Decision Making Lab Data 10/27/22 01:29 10/27/22 01:29 Labs: Lab Results 10/27/22 10/27/22 Range/Units 01:29 01:29 WBC 7.4 (4.8-10.8) X10*3/uL RBC 3.74 L (4.20-5.50) X10*6/uL Hgb 12.0 (12.0-16.0) g/dl Hct 35.7 L (37.0-47.0) % MCV 95.5 (80.0-98.0) fL MCH 32.1 (27.0-33.0) pg MCHC 33.6 (31.0-35.0) g/dl RDW 11.9 (11.0-16.0) % Plt Count 153 L D (160-400) X10*3/uL MPV 10.9 (9.4-12.3) fL Immature Gran % (Auto) 0.4 (0.0-0.4) % Neut % (Auto) 60.8 (45-73) % Lymph % (Auto) 24.4 (20-40) % [place] % (Auto) 9.1 (2-11) % Eos % (Auto) 4.5 H (0-4) % Baso % (Auto) 0.8 (0-2) % Lymph # (Auto) 1.8 (1.2-4.9) X10*3/uL [place] # (Auto) 0.7 (0.1-1.2) X10*3/uL Eos # (Auto) 0.3 (0.0-0.4) X10*3/uL Baso # (Auto) 0.1 (0.0-0.2) X10*3/uL Abs Immat Gran (auto) 0.03 (0.00-0.03) X10*3/uL Absolute Neuts (auto) 4.5 (2.0-8.3) x10*3/uL Absolute Nucleated RBC 0.000 (0.0-0.012) X10*3/uL Nucleated RBC % (auto) 0.0 (0.0-0.2) /100WBC Sodium 141 (135-145) mmol/L Potassium 4.5 (3.3-5.1) mmol/L Chloride 110 H (96-108) mmol/L Carbon Dioxide 22 (22-29) mmol/L Anion Gap 14 (12-20) BUN 11 (9-16) mg/dL Creatinine 0.71 (0.5-1.4) mg/dL Estim Creat Clear Calc 91.0 Estimated GFR > 60 Random Glucose 99 (60-115) mg/dL Calcium 8.7 (8.4-10.2) mg/dL Total Bilirubin 0.2 (0.0-1.0) mg/dL AST 20 (5-31) U/L ALT 20 (0-31) U/L Alkaline Phosphatase 52 (39-117) U/L Total Protein 6.3 L (6.5-8.0) g/dL Albumin 3.9 (3.5-5.0) g/dL Procedures Procedure Narrative Procedure Narrative: Excision and clot evacuation of thrombosed hemorrhoid: Lidocaine 1% with epi 1 cc was used and Anne elliptical incision were made at 2 locations 03:00 o'clock and 06:00 o'clock and blood clot was removed patient him felt much better pain improved Discharge Plan Discharge Clinical Impression: External hemorrhoid, thrombosed Patient Disposition: Home, Self-Care Instructions: Hemorrhoids (ED) Additional Instructions: Blood clot was removed you may continue to bleed for some time Suppository twice daily as advised Avoid straining/constipation Follow-up with surgeon if not better Prescriptions: New hydrocortisone acetate [Anusol-HC] 25 mg suppository 25 mg [place] BID Qty: 12 0RF No Action bupropion HCl 150 mg tablet extended release 24 hr 150 mg PO QAM 90 Days Qty: 90 0RF prednisone 10 mg tablet 10 mg PO DAILY PRN (Reason: allergy) 6 Days Qty: 12 0RF Rx Instructions: Take 3 tabs for 2 days, then 2 tabs for 2 days, then 1 tab for 2 days doxycycline hyclate 100 mg capsule 100 mg PO BID 7 Days Qty: 14 0RF prednisone 20 mg tablet 20 mg PO DAILY 5 Days Qty: 5 0RF cephalexin 500 mg tablet 500 mg PO Q6H 7 Days Qty: 28 0RF hydroxyzine HCl 25 mg tablet 25 mg PO BEDTIME Qty: 10 0RF diphenhydramine HCl [Benadryl] 25 mg capsule 25 mg PO TID PRN (Reason: allergy symptoms) Qty: 14 0RF cephalexin 500 mg capsule 500 mg PO QID 3 Days Qty: 12 0RF doxycycline hyclate 100 mg tablet 100 mg PO BID 3 Days Qty: 6 0RF cetirizine [Zyrtec] 10 mg tablet 10 mg PO DAILY Qty: 14 0RF triamcinolone acetonide 0.05 % ointment 1 appl topical BID Qty: 110 0RF hydrocortisone 2.5 % cream 1 appl topical BID PRN (Reason: skin irritation) Qty: 20 0RF norgestimate-ethinyl estradiol [Tri-Estarylla] 0.18/0.215/0.25 mg-35 mcg (28) tablet 1 tab PO DAILY One-A-Day Women's Complete 18 mg-400 mcg- 25 mcg tablet PO melatonin 10 mg capsule 10 mg PO BEDTIME PRN Interventions: ED Discharge Assessment Last Done: 10/27/22 02:52 Discharge Date/Time: 10/27/22 02:52
[2022-10-27] MEDS: diphenhydrAMINE HCL 25 MG CAPSULE 50 MG PO (02:46)
== END 2022-10-27 02:52 | disposition home or self-care (01) ==
PROVIDERS: Emergency Provider Internal Medicine; PCP Internal Medicine
DX: K64.5 Perianal venous thrombosis (principal); Z79.899 Other long term (current) drug therapy
CPT/HCPCS: 36415; 80053; 85025; 99282

== ENCOUNTER 2022-11-01 23:45 | Emergency (ER) | payer OTHER, SELFPAY ==
[2022-11-02 00:06] VITALS: BP 107/68; PULSE 81; RESP 16; TEMP 37.2; O2SAT 100; BMI 21.6
--- NOTE | 2022-11-02 00:15 | ED.SKABFB ---
HPI - Skin/Abscess/Foreign Bdy General Chief complaint: Skin/Abscess/Foreign Body Stated complaint: Rash? here last week for same Time Seen by Provider: 11/02/22 00:14 Source: patient Mode of arrival: ambulatory Limitations: no limitations History of Present Illness HPI narrative: 42-year-old female presents with rash around the rectal region times 7 days, minimally improving and itchy rash throughout body. Patient tells me she was seen here for hemorrhoid on October 27, she mention to the doctor that day that she had a rash around the rectum, however no specific recommendation was made. She saw her PCP who rx a medication for rectal ithcing it has been helping a little. She reports she thinks that the rash is still there because it is warm and itchy. She tells me her rectal area is slightly itchy and irritated. Rash throughout body started after stating topical cream sent by PCP, the rash throughout body is itchy. Taking Benadryl for sx. Denies fevers, chills, foreign travel, chest pain, shortness of breath, nausea, vomiting, diarrhea. Patient tells me she had a hemorrhoid lanced when she was here that day. Related Data Home Medications Medication Instructions Recorded Confirmed melatonin 10 mg capsule 10 mg PO BEDTIME PRN 12/20/21 01/01/22 pwvirbuq-fkgzwkc-tcaf-iron 18 tab PO 12/20/21 01/01/22 mg-FA 400 mcg-vit K 25 mcg tablet (One-A-Day Women's Complete) norgestimate-ethinyl estradiol 1 tab PO DAILY 12/20/21 01/01/22 0.18 mg/0.215mg/0.25mg-35 mcg(28)tablet (Tri-Estarylla) Previous Rx's Medication Instructions Recorded bupropion HCl 150 mg 24 hr tablet, 150 mg PO QAM 90 days #90 tabs 01/29/22 extended release hydrocortisone 2.5 % topical cream 1 appl topical BID PRN skin 04/12/22 irritation #20 grams prednisone 10 mg tablet 10 mg PO DAILY PRN allergy 6 days 04/12/22 #12 tabs cephalexin 500 mg tablet 500 mg PO Q6H 7 days #28 tabs 04/25/22 doxycycline hyclate 100 mg capsule 100 mg PO BID 7 days #14 caps 04/25/22 hydroxyzine HCl 25 mg tablet 25 mg PO BEDTIME #10 tabs 04/25/22 prednisone 20 mg tablet 20 mg PO DAILY 5 days #5 tabs 04/25/22 cephalexin 500 mg capsule 500 mg PO QID 3 days #12 caps 04/30/22 cetirizine 10 mg tablet (Zyrtec) 10 mg PO DAILY #14 tabs 04/30/22 diphenhydramine HCl 25 mg capsule 25 mg PO TID PRN allergy symptoms 04/30/22 (Benadryl) #14 caps doxycycline hyclate 100 mg tablet 100 mg PO BID 3 days #6 tabs 04/30/22 triamcinolone acetonide 0.05 % 1 appl topical BID #110 grams 04/30/22 topical ointment hydrocortisone acetate 25 mg 25 mg [place] BID #12 ea 10/27/22 rectal suppository (Anusol-HC) cephalexin 500 mg tablet 500 mg PO Q6H 10 days #40 tabs 11/02/22 hydroxyzine HCl 25 mg tablet 25 mg PO TID PRN itching #20 tabs 11/02/22 prednisone 20 mg tablet 40 mg PO DAILY 5 days #10 tabs 11/02/22 Allergies Allergy/AdvReac Type Severity Reaction Status Date / Time No Known Allergies Allergy Verified 10/26/22 23:56 Review of Systems Review of Systems: Constitutional : No Weight loss, No Fever, No Chills, No Fatigue, No Malaise ENT/Mouth : No sore throat, No Rhinorrhea Eyes: No Eye Pain, No Swelling, No Redness Cardiovascular : No Chest Pain, No SOB, No Dyspnea on Exertion, No Orthopnea, No Edema, No Palpitations Respiratory : No Cough, No Sputum, No Wheezing Gastrointestinal : No Nausea, No Vomiting, No Diarrhea, No Constipation, No abdominal Pain, No Hematochezia, No Melena Genitourinary : No Dysuria, No Urinary Frequency, No Hematuria, Musculoskeletal : No joint pain, No Myalgias, No Joint Swelling Skin : No Skin Lesions, + rash Neuro : No Weakness, No Numbness, No Dizziness, No Headache Psych : No Anxiety/Panic, No Depression All other systems reviewed and are negative Yes all other systems are reviewed and are negative PMFSH Past Medical History Attestation statement: The following information was validated with the patient. Source: old records reviewed and nursing notes reviewed Medical History Foot pain Mild recurrent major depression Physical exam Surgical History History of esophagogastroduodenoscopy (EGD) History of tonsillectomy Family History Family History Father No problems noted. Mother Diabetes Hypertension Stroke Heart attack Social History Social History Housing: House Alcohol intake: current Alcohol intake frequency: a few times a week Alcohol type: wine Patient Tobacco Use Status: Current everyday Tobacco user Tobacco use type: Cigarette Cigarettes Per Day: 5 e-Cigarette/Vaping Use: Never Used Second Hand Smoke Exposure: No Advance Directives: No Advance Directives Information Provided: No service: No Current occupational status: employed Cognitive needs: No Hearing needs: No Vision needs: Yes Physical Exam Vital Signs: Vital Signs: Last Vital Signs Temp 98.9 F 11/02/22 00:06 Pulse 81 11/02/22 00:06 Resp 16 11/02/22 00:06 BP 107/68 11/02/22 00:06 Pulse Ox 100 11/02/22 00:06 O2 Del Method 11/02/22 00:06 BMI result Body Mass Index 21.6 vss Appearance: Alert.? Oriented X3.? No acute distress.? Head: Normocephalic, atraumatic, no step-offs or deformities Eyes: Pupils equal, round and reactive to light.? CVS: Normal heart rate and rhythm.? Pulses normal.? Respiratory: No respiratory distress.? Breath sounds normal.? Abdomen: Soft and nontender.? Skin: Skin warm and dry.? Normal skin color.? Normal skin turgor.?Diffuse maculopapular rash to bilateral upper extremities, bilateral lower extremities and to trunk. Sensitive exam:slight erythema around the rectum with excoriations from scratching. Healing incision from elliptical incision made during external hemorrhoid removal. Rectum without discharge. Extremities: No lower extremity edema.? No calf ttp. 5/5 strength to bilateral upper and lower extremities Neuro: Oriented X 3.? No motor deficit.? No sensory deficit. CN 2-12 intact Course Reevaluation(s) Reevaluation #1: Patient will receive 1st dose of Keflex and prednisone here. I suspect allergic reaction as well as cellulitis. Patient is scheduled to see Allergy doctor on Friday. Educated patient on diagnosis and treatment plan, answered all question, patient verbalizes understanding. At this time patient will be discharged home, advised to return with new or worsening symptoms. Educated on worrisome signs and symptoms and when to return. At this time I feel comfortable discharge home. Time: 00:37 Medical Decision Making Medical Decision Making [facility] Narrative: 0017 42-year-old female presents for anal pruritus and rash and rash throughout body times a few days, worsened status post getting topical cream from PCP. Denies fevers, chills. Physical exam with slight erythema around the rectum with excoriations from scratching. Healing incision from elliptical incision made during external hemorrhoid removal. Diffuse maculopapular rash to bilateral upper extremities, bilateral lower extremities and to trunk. Likely irritation versus cellulitis with likely superimposed allergic reaction. Unlikely ova or parasites. No signs of fungal infection. No signs of Ky's gangrene or necrotizing infection. No signs of SJS or TEN Differential Diagnosis Differential Diagnoses: The differential diagnosis associated with the presentation includes Likely irritation versus cellulitis with likely superimposed allergic reaction. Unlikely ova or parasites. No signs of fungal infection. No signs of Ky's gangrene or necrotizing infection. No signs of SJS or TEN Admission/Observation Consideration of admission/observation: Escalation of care including admission/observation considered Core Measures AMI core measures followed: Yes Measure exclusions: not indicated Critical Care Time Critical Care Time Critical Care Time: No Discharge Plan Discharge Clinical Impression: Anal itch, Cellulitis, Allergic reaction Patient Disposition: Home, Self-Care Instructions: Anal Itching (ED), Cellulitis (ED), Allergy Testing (ED) Additional Instructions: Take your medications as prescribed. If you were prescribed antibiotics today, it is important that you take your medication to their entirety, do not skip any doses, do not finish them early. Follow-up with your primary care provider this week. Return to the emergency department with new or worsening symptoms. Such as fevers, chills, chest pain, shortness of breath, nausea, vomiting, dizziness, headache, vision changes, lethargy In case of emergency call 911 I have sent Atarax to your pharmacy, please do not take this with Benadryl. Please take antibiotics for suspected superficial skin infection. Also take prednisone for allergic reaction. Prescriptions: New cephalexin 500 mg tablet 500 mg PO Q6H 10 Days Qty: 40 0RF hydroxyzine HCl 25 mg tablet 25 mg PO TID PRN (Reason: itching) Qty: 20 0RF prednisone 20 mg tablet 40 mg PO DAILY 5 Days Qty: 10 0RF No Action bupropion HCl 150 mg tablet extended release 24 hr 150 mg PO QAM 90 Days Qty: 90 0RF prednisone 10 mg tablet 10 mg PO DAILY PRN (Reason: allergy) 6 Days Qty: 12 0RF Rx Instructions: Take 3 tabs for 2 days, then 2 tabs for 2 days, then 1 tab for 2 days doxycycline hyclate 100 mg capsule 100 mg PO BID 7 Days Qty: 14 0RF prednisone 20 mg tablet 20 mg PO DAILY 5 Days Qty: 5 0RF cephalexin 500 mg tablet 500 mg PO Q6H 7 Days Qty: 28 0RF hydroxyzine HCl 25 mg tablet 25 mg PO BEDTIME Qty: 10 0RF diphenhydramine HCl [Benadryl] 25 mg capsule 25 mg PO TID PRN (Reason: allergy symptoms) Qty: 14 0RF cephalexin 500 mg capsule 500 mg PO QID 3 Days Qty: 12 0RF doxycycline hyclate 100 mg tablet 100 mg PO BID 3 Days Qty: 6 0RF cetirizine [Zyrtec] 10 mg tablet 10 mg PO DAILY Qty: 14 0RF triamcinolone acetonide 0.05 % ointment 1 appl topical BID Qty: 110 0RF hydrocortisone acetate [Anusol-HC] 25 mg suppository 25 mg [place] BID Qty: 12 0RF hydrocortisone 2.5 % cream 1 appl topical BID PRN (Reason: skin irritation) Qty: 20 0RF norgestimate-ethinyl estradiol [Tri-Estarylla] 0.18/0.215/0.25 mg-35 mcg (28) tablet 1 tab PO DAILY One-A-Day Women's Complete 18 mg-400 mcg- 25 mcg tablet PO melatonin 10 mg capsule 10 mg PO BEDTIME PRN Referrals: ED Physician,Generic [Emergency Provider] - 2 days Physician,Unknown J [Physician] - Stand Alone Forms: Work/School Release
[2022-11-02] MEDS: cephALEXin 500 MG CAPSULE PO (01:12)
[2022-11-02] MEDS: predniSONE 20 MG TABLET 40 MG PO (01:12)
== END 2022-11-02 01:29 | disposition home or self-care (01) ==
PROVIDERS: Emergency Provider Emergency Medicine Emergency Medical Services; PCP Internal Medicine
DX: K61.1 Rectal abscess (principal); L25.1 Unspecified contact dermatitis due to drugs in contact with skin; T50.995A Adverse effect of other drugs, medicaments and biological substances, initial encounter; Y92.019 Unspecified place in single-family (private) house as the place of occurrence of the external cause
CPT/HCPCS: 99283; 99284

== ENCOUNTER 2023-01-10 06:01 | Outpatient (REF) | payer OTHER, SELFPAY ==
[2023-01-10 06:12] LABS: MANUAL DIFF FLAG NO
[2023-01-10 07:27] LABS: Basophils Absolute Auto 0.1 X10*3/uL (0.0-0.2); Eosinophils Absolute Auto 0.2 X10*3/uL (0.0-0.4); Eosinophils Percent Auto 3.2 % (0-4); Hematocrit 36.4 % (37.0-47.0); Hemoglobin 12.1 g/dl (12.0-16.0); Imm Gran Abs Auto 0.01 X10*3/uL (0.00-0.03); Imm Gran Pct Auto 0.2 % (0.0-0.4); Lymphocytes Absolute Auto 1.8 X10*3/uL (1.2-4.9); Lymphocytes Percent Auto 36.4 % (20-40); Mean Corpuscular HGB Conc 33.2 g/dl (31.0-35.0); Mean Corpuscular Hemoglobin 31.7 pg (27.0-33.0); Mean Corpuscular Volume 95.3 fL (80.0-98.0); Mean Platelet Volume 11.4 fL (9.4-12.3); Monocytes Absolute Auto 0.4 X10*3/uL (0.1-1.2); Monocytes Percent Auto 8.5 % (2-11); Neutrophils Absolute Auto 2.6 x10*3/uL (2.0-8.3); Neutrophils Percent Auto 50.7 % (45-73); Platelet Count 196 X10*3/uL (160-400); Red Blood Count 3.82 X10*6/uL (4.20-5.50); Red Cell Distribution Width 12.1 % (11.0-16.0); White Blood Count 5.1 X10*3/uL (4.8-10.8)
[2023-01-10 07:57] LABS: Alanine Aminotransferase 21 U/L (0-31); Albumin Level 3.9 g/dL (3.5-5.0); Alkaline Phosphatase 47 U/L (39-117); Anion Gap 13 (12-20); Aspartate Amino Transferase 22 U/L (5-31); Bilirubin Total 0.8 mg/dL (0.0-1.0); Blood Urea Nitrogen 10 mg/dL (9-16); Calcium 9.2 mg/dL (8.4-10.2); Carbon Dioxide 24 mmol/L (22-29); Chloride 109 mmol/L (96-108); Cholesterol 207 mg/dL; Estimated Glomerular Filt Rate > 60; Glucose Fasting 77 mg/dL (60-99); HDL Cholesterol 49 mg/dL; LDL Cholesterol Calculated 142 mg/dl; Potassium 4.5 mmol/L (3.3-5.1); Sodium 141 mmol/L (135-145); Total Protein 6.1 g/dL (6.5-8.0); Triglycerides 81 mg/dL
[2023-01-10 08:17] LABS: Free T4 (Free Thyroxine) 0.84 ng/dL (0.71-1.85); Thyroid Stimulating Hormone 12.13 uIU/mL (0.32-4.0)
[2023-01-10 08:18] LABS: HBS Num1 0.19 mIU/mL (0-7.99); Hepatitis B Core Antibody Nonreactive (Nonreactive); Hepatitis B Surface Antigen Negative (Negative); ~Hepatitis B Surface Antibody NONREACTIVE (Nonreactive)
[2023-01-12 22:29] LABS: TS Negative Control Passed; TS Panel A 0; TS Panel B 0; TS Positive Control Passed; TSpotTB Negative (Negative)
[2023-01-14 05:17] LABS: Thyroglobulin Antibodies <1 IU/mL (< or = 1); Thyroid Peroxidase Antibodies 759 IU/mL (<9)
[2023-01-14 06:03] LABS: Rubeola IgG (Measles) >300.00 AU/mL
[2023-01-14 06:09] LABS: Rubella IgG Antibody 3.34 Index
== END 2023-01-10 06:02 | disposition home or self-care (01) ==
LOC: HO.LAB 06:01
PROVIDERS: PCP Internal Medicine; Visit Provider Internal Medicine
DX: Z00.00 Encounter for general adult medical examination without abnormal findings (principal); Z11.1 Encounter for screening for respiratory tuberculosis; D69.6 Thrombocytopenia, unspecified; R94.6 Abnormal results of thyroid function studies
CPT/HCPCS: 36415; 80053; 80061; 84439; 84443; 85025; 86376; 86481; 86704; 86706; 86735; 86762; 86765; 86787; 86800; 87340

== ENCOUNTER 2023-04-05 07:38 | Outpatient (REF) | payer OTHER, SELFPAY ==
[2023-04-05 09:44] LABS: Thyroid Stimulating Hormone 7.05 uIU/mL (0.32-4.0)
== END 2023-04-05 07:39 | disposition home or self-care (01) ==
LOC: HO.LAB 07:38
PROVIDERS: PCP Internal Medicine; Visit Provider Internal Medicine
DX: E06.3 Autoimmune thyroiditis (principal)
CPT/HCPCS: 36415; 84443

== ENCOUNTER 2023-04-07 12:14 | Outpatient (AMB) | payer OTHER, SELFPAY ==
--- NOTE | 2023-04-07 12:26 | MHC.OFFVIS ---
Intake Vital Signs 04/07/23 12:28 Height 5 ft 5 in Weight 136 lb 10.986 oz BMI 22.7 BP 103/60 Blood Pressure Location Lt brachial Position Sitting Pulse 69 Intake Visit Reasons: 4 week follow up r/s from 01/22 Intake Note: Arlin presents in the office as a 4 week follow up from reschedule. CC: She states that she is not feeling too bad. 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 10/15/22: Reports abd pain associated with diarrhea x3 weeks. Describes abd pressure in lower abd with urge to defecate and the BM comes out watery, nonbloody. Nocturnal sx +. Estimates 3-4BMs/day. Pressure does not get relieved with a BM. No fevers, chills, N/V. Has trouble controlling the urge but has not had fecal incontinence accidents. No tenesmus. Also having R sided hip pain which is worse in the morning. Has been taking peptobismol which helps temporarily. Also tried imodium but didnt think that helped as much. No weight loss. Pt smokes half a pack a day. EtOH intake 2 glasses of wine. Fam hx of UC in mat aunt. Mother: ILD ( 12/2022) 04/07/23: Labs have already been reviewed with the pt - essentially all normal. Pt also reports improvement in her sx and is here to discuss screening colo. PFSH Medical History Foot pain Mild recurrent major depression Physical exam Surgical History History of esophagogastroduodenoscopy (EGD) History of tonsillectomy Family History Father No problems noted. Mother Diabetes Hypertension Stroke Heart attack Interstitial lung disease Sister Hypothyroidism Maternal Uncle Lung cancer Maternal Aunt Sarcoidosis of lung Social History Housing: House Alcohol intake: current Alcohol intake frequency: a few times a month Alcohol type: wine Patient Tobacco Use Status: Current everyday Tobacco user Tobacco use type: Cigarette Cigarette Packs Per Day: 1 e-Cigarette/Vaping Use: Never Used Second Hand Smoke Exposure: No service: No Current occupational status: employed Current occupational exposures/hazards: No Cognitive needs: No Hearing needs: No Vision needs: Yes Review of Systems Const All systems reviewed & are unremarkable except as noted in HPI and below Physical Exam Vital Signs: Last Vital Signs Pulse 69 04/07/23 12:28 BP 103/60 04/07/23 12:28 BMI result Body Mass Index 22.7 Gen appear: NAD HEENT: nonicteric, no cervical lymphadenopathy Chest: CTA CVS: Regular S1/S2 Abd: soft, nontender, nondistended, bowel sounds + Ext: no peripheral edema Neuro: A/Ox3, noted to move all extremities spontaneously Psych: interacting appropriately Assessment & Plan Assessment & Plan (1) Screen for colon cancer: Code(s): Z12.11 - Encounter for screening for malignant neoplasm of colon Plan Will be booked on an elective basis. Split PEG prep instructions reviewed and a handout was given as well. Follow up after colo. Medications: New peg 3350-electrolytes 236-22.74-6.74 -5.86 gram (Golytely) as per split prep instructions, until fecal effluent is clear 240 mL PO Q10M 4,000 mL 0RF colonoscopy Coding Level of Care Code Est Pt Level 3 (51058) Diagnoses Screen for colon cancer Z12.11
[2023-04-07 12:28] VITALS: BP 103/60; PULSE 69; BMI 22.7
== END 2023-04-07 13:23 | disposition home or self-care (01) ==
PROVIDERS: PCP Internal Medicine; Visit Provider Internal Medicine
DX: Z01.818 Encounter for other preprocedural examination (principal); Z12.11 Encounter for screening for malignant neoplasm of colon
CPT/HCPCS: 99213

== ENCOUNTER → 2023-04-07 12:14 | Outpatient (BNVA) | payer OTHER, SELFPAY | PROVIDERS: PCP Internal Medicine; Visit Provider Internal Medicine | DX: Z12.11 Encounter for screening for malignant neoplasm of colon (principal) | CPT/HCPCS: 99212 ==

== ENCOUNTER 2023-07-14 07:45 | Outpatient (AMB) | payer OTHER, SELFPAY ==
[2023-07-14 07:58] VITALS: BP 126/78; BMI 24.3
--- NOTE | 2023-07-14 07:58 | MHC.PC.OV ---
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 Required: No Accompanied by: Self / Same As Patient Allergies gold sodium thiomalate Adverse Reaction (Severe, Verified 07/14/23 08:13) Rash Medication List - Last Reconciled 07/14/23 by Jess Rodriguez MD levothyroxine 50 mcg PO DAILY 90 days melatonin 10 mg PO BEDTIME PRN fa-vwlgszj-gqn-iron fm-FA-vitK 18 mg-400 mcg- 25 mcg (One-A-Day Women's Complete(with vit K)) tabs PO norgestimate-ethinyl estradiol 0.18/0.215/0.25 mg-35 mcg (28) (Tri-Estarylla) 1 tab PO DAILY Tobacco use date assessed: 01/09/23 Dental Screening Dental Screen Date: 07/14/23 Did you have a dental visit in the last 12 months?: Yes Did you have a dental problem in the last 6 months where you did not have access to dental care?: No Was dental information given to patient?: Patient has dentist HPI HPI Comments History of Present Illness Details This is a 43-year-old female with autoimmune thyroiditis, mild recurrent major depression and insomnia that comes today complaining of some sinus congestion and I will start her on cetirizine. Last TSH was abnormal and this will be repeated today. Depression is in remission. Insomnia stable with melatonin as needed. No chest pain or shortness of breath. [facility] Medical History (Updated 07/14/23 @ 09:31 by Jess Rodriguez MD) Mild recurrent major depression Physical exam Foot pain Surgical History History of esophagogastroduodenoscopy (EGD) History of tonsillectomy Family History Father No problems noted. Mother Diabetes Hypertension Stroke Heart attack Interstitial lung disease Sister Hypothyroidism Maternal Uncle Lung cancer Maternal Aunt Sarcoidosis of lung Social History Housing: House Alcohol intake: current Alcohol intake frequency: a few times a month Alcohol type: wine Patient Tobacco Use Status: Current everyday Tobacco user Tobacco use type: Cigarette Cigarette Packs Per Day: 1 e-Cigarette/Vaping Use: Never Used Second Hand Smoke Exposure: No service: No Current occupational status: employed Current occupational exposures/hazards: No Cognitive needs: No Hearing needs: No Vision needs: Yes Questionnaire PHQ-9 Over the last 2 weeks, how often have you been bothered by any of the following problems? 1. Little interest or pleasure in doing things: not at all 2. Feeling down, depressed, or hopeless: not at all 3. Trouble falling or staying asleep, or sleeping too much: not at all 4. Feeling tired or having little energy: not at all 5. Poor appetite or overeating: not at all 6. Feeling bad about yourself - or that you are a failure or have let yourself or your family down: not at all 7. Trouble concentrating on things, such as reading the newspaper or watching television: not at all 8. Moving or speaking so slowly that other people could have noticed. Or the opposite - being so fidgety or restless that you have been moving around a lot more than usual: not at all 9. Thoughts that you would be better off or of hurting yourself in some way: not at all Total score: 0 Depression Screening Interpretation: Negative Depression Screening Done: Yes 78745 - PHQ-9 Billing: Yes Source: Developed by Drs. Long Bradley, Indy Floyd, Gurjit Luna and colleagues, with an educational jarrod from [employer]. Thrive Questionnaire Date Thrive assessed: 07/14/23 I am a: Patient What is your living situation today?: I have a steady place to live Within the past 12 months, did the food you bought not last and you didn't have the money to get more?: Never true Within the past 12 months, did you worry whether your food would run out before you got money to buy more?: Never true Do you have trouble paying for medicines?: No Do you have trouble getting transportation to medical appointments?: No Do you have trouble paying your heating and electricity bill?: No Do you have trouble taking care of your child, family member or friend?: No Do you have trouble with day-to-day activities such as bathing, preparing meals, shopping, managing finances, etc.?: No Are you currently unemployed and looking for a job?: No Are you interested in more education?: No Please select the resources that you would like help with: None Currently or been in a relationship where the following occur: no concerns reported AUDIT C Alcohol Use Questionnaire (AUDIT-C) 1. How often do you have a drink containing alcohol?: 2-4 times a month 2. How many drinks containing alcohol do you have on a typical day when you are drinking?: 1 or 2 3. How often do you have six or more drinks on one occasion?: Never Total Score: 2 Score Reviewed/Action Taken: No JORDYN-7 AMB Questionnaire JORDYN-7 Date JORDYN - 7 assessed: 07/14/23 Feeling nervous, anxious, or on edge: 1 = Several days Not being able to stop or control worryin = Not at all Worrying too much about different things: 1 = Several days Trouble relaxin = Not at all Being so restless that it is hard to sit still: 0 = Not at all Becoming easily annoyed or irritable: 0 = Not at all Feeling afraid as if something awful might happen: 0 = Not at all Total JORDYN-7 score (0-4 normal; 5-9 mild; 10-14 moderate; 15-21 severe): 2 Source: Developed by Drs. Long Bradley, Indy Floyd, Gurjit Luna and colleagues, with an educational jarrod from [employer]. JORDYN-7 Assessment Billing JORDYN-7 Assessment Tool: JORDYN-7 Assessment 78960 Review of Systems Const All systems reviewed & are unremarkable except as noted in HPI and below Eyes Reports no additional complaints, Denies change in vision and Denies other visual disturbances Card Denies chest pain at rest, Denies chest pain with activity, Denies edema, Denies irregular heart rhythm, Denies claudication, Denies dyspnea, Denies dyspnea on exertion, Denies orthopnea, Denies paroxysmal nocturnal dyspnea and Denies slow heart rate Resp Denies cough, Denies dyspnea and Denies dyspnea on exertion GI Denies abdominal pain, Denies change in bowel habits, Denies excessive flatus, Denies nausea and Denies vomiting Denies urinary incontinence, Denies urinary hesitancy and Denies urinary urgency Musc Denies abnormal gait, Denies atrophy, Denies deformity and Denies limited range of motion Skin/Breast Denies bleeding lesions, Denies changing lesions and Denies rash Neuro Denies abnormal gait and Denies lack of coordination Physical exam (Primary Care) Vital Signs: Last Vital Signs BP 126/78 07/14/23 07:58 BMI result Body Mass Index 24.3 Tobacco/Smoking Status: Tobacco use Status Tobacco use date assessed 01/09/23 07/14/23 08:04 Patient Tobacco Use Status Current everyday Tobacco 07/14/23 08:04 Tobacco use type Cigarette 07/14/23 08:04 e-Cigarette/Vaping Use Never Used 07/14/23 08:04 PHQ-9: PHQ-9 Score PHQ-9: Total score 0 07/14/23 08:28 Depression Screening Interpretation: Negative Thrive Assessment: Date of Thrive Assessment Date Thrive assessed 07/14/23 07/14/23 08:04 Currently or been in a relationship where the following occur: no concerns reported Eyes General: appearance normal, both eyes and all related structures Eyelids: Yes eyelids normal Conjunctivae: conjunctivae normal Neck Neck: Yes normal visual inspection and Yes supple Resp Effort & Inspection: normal respiratory effort Auscultation: clear to auscultation bilaterally Cardio Jugular venous distension: no JVD Rate: regular rate Rhythm: regular rhythm Heart sounds: S1 normal heart sound present and S2 normal heart sound present Extrem General: Yes full ROM Assessment and Plan Assessment & Plan (1) Autoimmune thyroiditis: Code(s): E06.3 - Autoimmune thyroiditis Plan: Continue levothyroxine. Repeat TSH today. (2) Mild recurrent major depression: Code(s): F33.0 - Major depressive disorder, recurrent, mild Plan: In remission. (3) Insomnia: Code(s): G47.00 - Insomnia, unspecified Plan: Continue melatonin as needed. (4) Congestion of paranasal sinus: Code(s): R09.81 - Nasal congestion Plan: Start cetirizine as needed. Orders: Orders Thyroid Stimulating Hormone Today E06.3 - Autoimmune thyroiditis Coding Level of Care Code Est Pt Level 4 (05260) Diagnoses Autoimmune thyroiditis E06.3 Mild recurrent major depression F33.0 Insomnia G47.00 Congestion of paranasal sinus R09.81 Additional Codes JORDYN-7 Assessment Billing - JORDYN-7 Assessment Tool: JORDYN-7 Assessment 92043 ([id number]) Time Spent (min) 22
== END 2023-07-14 08:22 | disposition home or self-care (01) ==
PROVIDERS: Visit Provider Internal Medicine
DX: E06.3 Autoimmune thyroiditis (principal); F33.0 Major depressive disorder, recurrent, mild; G47.00 Insomnia, unspecified; R09.81 Nasal congestion
CPT/HCPCS: 99214

== ENCOUNTER 2023-07-19 06:59 | Outpatient (REF) | payer OTHER, SELFPAY ==
[2023-07-19 08:29] LABS: Thyroid Stimulating Hormone 9.02 uIU/mL (0.32-4.0)
== END 2023-07-19 07:00 | disposition home or self-care (01) ==
LOC: HO.LAB 06:59
PROVIDERS: PCP Internal Medicine; Visit Provider Internal Medicine
DX: E06.3 Autoimmune thyroiditis (principal)
CPT/HCPCS: 36415; 84443

== ENCOUNTER 2023-09-11 06:43 | Day surgery (SDC) | payer OTHER, SELFPAY ==
[2023-09-05 19:54] VITALS: BMI 24.1
--- NOTE | 2023-09-10 09:56 | HO.ANESPROP2 ---
HPI - Anesthesia Eval Consult details Narrative: 43yo F for Colonoscopy PMF Active Problems Active Problems: All Active Problems (Updated 09/05/23 @ 19:53 by Asia Laura RN) Insomnia (Acute) Autoimmune thyroiditis (Acute) Thrombocytopenia (Acute) Elevated TSH (Acute) Screen for colon cancer (Acute) Immunity status testing (Acute) Diarrhea (Acute) Abdominal pain (Acute) Dyspepsia (Acute) Skin lesion (Acute) Superficial burn (Acute) Congestion of paranasal sinus (Acute) Sinusitis (Acute) Cough (Acute) Visit for wound check (Acute) Mild recurrent major depression (Acute) Physical exam (Acute) Foot pain (Acute) Past Medical History Medical History Smoker Hypothyroidism Mild recurrent major depression Physical exam Foot pain Family History Family History Father No problems noted. Mother Diabetes Hypertension Stroke Heart attack Interstitial lung disease Sister Hypothyroidism Maternal Uncle Lung cancer Maternal Aunt Sarcoidosis of lung Surgical History Surgical History History of esophagogastroduodenoscopy (EGD) History of tonsillectomy Social History Social History Housing: House Alcohol intake: current Alcohol intake frequency: holidays/special occasions only Alcohol type: wine Patient Tobacco Use Status: Current everyday Tobacco user Tobacco use type: Cigarette Cigarette Packs Per Day: 0.5 Cigarettes Per Day: 10.0 Years Smoked: 25 e-Cigarette/Vaping Use: Never Used Second Hand Smoke Exposure: No service: No Current occupational status: employed Current occupational exposures/hazards: No Cognitive needs: No Hearing needs: No Vision needs: Yes Meds Allergies Allergy/AdvReac Type Severity Reaction Status Date / Time gold sodium thiomalate AdvReac Severe Rash Verified 07/14/23 08:13 adhesive AdvReac Redness of Verified 09/05/23 19:54 Skin Home Medications Medication Instructions Recorded Confirmed Last Taken Type melatonin 10 mg capsule 10 mg PO BEDTIME PRN Insomnia 12/20/21 09/05/23 Unknown History bamkuhfg-qmdulbk-bhzg-iron 18 1 tab PO DAILY 12/20/21 09/05/23 Unknown History mg-FA 400 mcg-vit K 25 mcg tablet (One-A-Day Women's Complete(with vit K)) norgestimate-ethinyl estradiol 1 tab PO DAILY 12/20/21 09/05/23 Unknown History 0.18 mg/0.215mg/0.25mg-35 mcg(28)tablet (Tri-Estarylla) Exam Height,Weight and Vital Signs: Height 5 ft 5 in Weight 65.771 kg Pertinent Lab Results Pertinent Lab Results: Laboratory Tests 01/10/23 06:10 WBC 5.1 Hgb 12.1 Hct 36.4 L Plt Count 196 D Sodium 141 Potassium 4.5 Chloride 109 H Carbon Dioxide 24 BUN 10 Creatinine 0.68 Assessment and Plan Assessment Anesthesia Assessment: Chart Reviewed
--- NOTE | 2023-09-11 06:32 | MHC.SHP ---
Pre-Procedural Eval Section A Date of Service: 09/11/23 Section B Chief Complaint: Encounter for screening for malignant neoplasm of Relevant Family History (Specify if Yes): No Relevant Social History: Tobacco Use Present Medications: see Short Stay Collaborative assessment Medical History: Significant History (Smoker Hypothyroidism Mild recurrent major depression Foot pain) History of Previous Operations: Relevant previous surgery/procedure and date(s) ( History of esophagogastroduodenoscopy (EGD) History of tonsillectomy) Allergies: Allergies Allergy/AdvReac Type Severity Reaction Status Date / Time gold sodium thiomalate AdvReac Severe Rash Verified 07/14/23 08:13 adhesive AdvReac Redness of Verified 09/05/23 19:54 Skin Review of Systems Sugical H&P ROS: Negative: Constitution, Cardiovascular, Respiratory, Neurological, Psychiatric, Hem-Onc, Allergic/Immunologic, Gastrointestinal, Genitourinary, Musculoskeletal, Integumentary, Endocrine and Eyes/Ears/Nose/Throat Exam Surgical H&P Exam: Normal: HEENT, Normal: Heart, Normal: Lungs, Normal: Extremities, Normal: Abdomen, Normal: Skin and Normal: Neurological Plan Diagnosis/Plan: Unchanged I have reviewed the history and physical and performed a pertinent physical examination on my patient. No changes have occurred unless specified. Time Spent With Patient Time: Total time managing care of this patient today ____ minutes.
[2023-09-11 07:12] VITALS: BMI 24.1
[2023-09-11 07:27] VITALS: BP 110/63; PULSE 68; RESP 18; TEMP 36.9; O2SAT 98
--- NOTE | 2023-09-11 07:44 | HO.ANESPROP2 ---
[facility] Active Problems Active Problems: All Active Problems (Updated 09/05/23 @ 19:53 by Asia Laura RN) Insomnia (Acute) Autoimmune thyroiditis (Acute) Thrombocytopenia (Acute) Elevated TSH (Acute) Screen for colon cancer (Acute) Immunity status testing (Acute) Diarrhea (Acute) Abdominal pain (Acute) Dyspepsia (Acute) Skin lesion (Acute) Superficial burn (Acute) Congestion of paranasal sinus (Acute) Sinusitis (Acute) Cough (Acute) Visit for wound check (Acute) Mild recurrent major depression (Acute) Physical exam (Acute) Foot pain (Acute) Past Medical History Medical History Smoker Hypothyroidism Mild recurrent major depression Physical exam Foot pain Patient : No Family History Family History Father No problems noted. Mother Diabetes Hypertension Stroke Heart attack Interstitial lung disease Sister Hypothyroidism Maternal Uncle Lung cancer Maternal Aunt Sarcoidosis of lung Family history of problems with anesthesia: No Surgical History Surgical History History of esophagogastroduodenoscopy (EGD) History of tonsillectomy History of Problems with Anesthesia: No Social History Social History Housing: House Alcohol intake: current Alcohol intake frequency: holidays/special occasions only Alcohol type: wine Patient Tobacco Use Status: Current everyday Tobacco user Tobacco use type: Cigarette Cigarette Packs Per Day: 0.5 Cigarettes Per Day: 10.0 Years Smoked: 25 Smoked in Last 30 Days: Yes e-Cigarette/Vaping Use: Never Used Second Hand Smoke Exposure: No Use of substances other than those prescribed or required for medical reasons: No Are you DNR?: No Advance Directives: No Advance Directives Information Provided: Yes Advance Directives on File: No Recently lost weight without trying: No Nutrition Risks: No Nutritional Risk Patient : No service: No Current occupational status: employed Current occupational exposures/hazards: No Cognitive needs: No Hearing needs: No Vision needs: Yes Meds Allergies Allergy/AdvReac Type Severity Reaction Status Date / Time gold sodium thiomalate AdvReac Severe Rash Verified 07/14/23 08:13 adhesive AdvReac Redness of Verified 09/05/23 19:54 Skin Active Medications: Current Medications Albuterol Sulfate (Albuterol Sulfate (0.083%) 2.5 Mg/3 Ml Vial.Neb) 2.5 mg INHALE ONCE PRN PRN Reason: Shortness of Breath/Wheezing Lactated Ringer's (Lr) 1,000 mls @ 100 mls/hr IVCONT .Q10H REENA Last Admin: 09/11/23 07:40 Dose: 100 mls/hr Ondansetron HCl (Ondansetron Hcl 4 Mg/2 Ml Vial) 4 mg IVPUSH ONCE PRN PRN Reason: Nausea and Vomiting Home Medications Medication Instructions Recorded Confirmed Last Taken Type melatonin 10 mg capsule 10 mg PO BEDTIME PRN Insomnia 12/20/21 09/05/23 Unknown History ebociajp-rggxfxt-nohz-iron 18 1 tab PO DAILY 12/20/21 09/05/23 Unknown History mg-FA 400 mcg-vit K 25 mcg tablet (One-A-Day Women's Complete(with vit K)) norgestimate-ethinyl estradiol 1 tab PO DAILY 12/20/21 09/05/23 Unknown History 0.18 mg/0.215mg/0.25mg-35 mcg(28)tablet (Tri-Estarylla) Exam Height,Weight and Vital Signs: Height 5 ft 5 in Weight 65.589 kg Last Vital Signs Temp 98.5 F 09/11/23 07:27 Pulse 68 09/11/23 07:27 Resp 18 09/11/23 07:27 BP 110/63 09/11/23 07:27 Pulse Ox 98 09/11/23 07:27 O2 Del Method Room Air 09/11/23 07:27 Pertinent Lab Results Pertinent Lab Results: Laboratory Tests 09/11/23 07:15 Urine Test NEGATIVE Airway Mallampati Class: II TM Dist: >3cm Neck ROM: Full Heart: rrr Lungs: clear Assessment and Plan Final Anesthetic Review Family History of Problems with Anesthesia: No History of Problems with Anesthesia: No NPO: Yes Final Preanesthetic Review: No Changes in Pt Med Stat, Meds/Allgs Chart Reviewed, Consent Obtained/Reviewed and Anes Risks/Benef Reviewed Patient Risk: Low Procedure Risk: Low Anesthetic Plan Anesthetic Plan: MAC: Disposition: Standard PACU
--- NOTE | 2023-09-11 08:27 | W.PM.OPN ---
Operative Note Operative Note Date of Service: 09/11/23 Narrative: Operative Information Procedure Description: Colonoscopy Indication: screening Anesthesia: MAC COLONOSCOPY Instrument: Olympus variable stiffness pediatric scope 190L Colonoscopy Monitoring: Vital signs and clinical assessment, continuous EKG monitoring, Pulse oximetry, Carbon Dioxide monitoring and blood pressure monitoring were done throughout the procedure. Colon withdrawal time was 6 minutes. Procedure: The patient was placed in the left lateral decubitis position and pre-procedure medications were administered. After a digital rectal examination of the ano-rectum, the video colonoscope was inserted into the rectum and advanced through the colon to the cecum/TI. The colonoscope was slowly withdrawn in a retrograde panoramic fashion and the colon mucosa was carefully examined including a retroflexed view of the rectum. Findings and interventions are described below. Procedure Difficulty: easy Findings: Terminal Ileum-normal Cecum:normal Ascending Colon: normal Transverse Colon -normal Descending Colon: 6-7 mm sessile polyp removed with cold snare Sigmoid Colon: normal Rectum: Retroflexion with small internal hemorrhoids, grade I Anorectum - normal Colon preparation: [place] Bowel Preparation Scale Right colon; 3 Transverse colon: 3 Left colon; 3 (0 = Unprepared colon segment with mucosa not seen due to solid stool that cannot be cleared. 1 = Portion of mucosa of the colon segment seen, but other areas of the colon segment not well seen due to staining, residual stool and/or opaque liquid. 2 = Minor amount of residual staining, small fragments of stool and/or opaque liquid, but mucosa of colon segment seen well. 3 = Entire mucosa of colon segment seen well with no residual staining, small fragments of stool or opaque liquid) Impression and Post Procedure Diagnosis: polyp internal hemorrhoids Plan: High fiber diet leaflet Avoid straining at stool, epsom salts and sitz bath, anusol supps or cream Repeat Colonoscopy in 5-7 years if adenoma polyp otherwise 10 yrs if hyperplastic or earlier if clinically indicated Above findings were reviewed with the patient and relevant handouts were provided if indicated.
[2023-09-11 08:36] VITALS: BP 101/65; PULSE 78; RESP 20; TEMP 37.1; O2SAT 98
[2023-09-11 08:51] VITALS: BP 105/57; PULSE 71; RESP 20; TEMP 37.2; O2SAT 99
== END 2023-09-11 09:18 | disposition home or self-care (01) ==
PROVIDERS: PCP Internal Medicine; Visit Provider Internal Medicine Gastroenterology
PROC: 0DJD8ZZ Inspection of Lower Intestinal Tract, Via Natural or Artificial Opening Endoscopic (ICD-10-PCS; CPT 45378; principal; 2023-09-11 08:50)
DX: Z12.11 Encounter for screening for malignant neoplasm of colon (principal); D12.4 Benign neoplasm of descending colon; K57.30 Diverticulosis of large intestine without perforation or abscess without bleeding; K64.0 First degree hemorrhoids; E03.9 Hypothyroidism, unspecified; F33.0 Major depressive disorder, recurrent, mild; Z79.899 Other long term (current) drug therapy; Z88.8 Allergy status to other drugs, medicaments and biological substances; L23.1 Allergic contact dermatitis due to adhesives; F17.210 Nicotine dependence, cigarettes, uncomplicated
CPT/HCPCS: 45385; 81025; 88305; J2704

== ENCOUNTER → 2023-09-11 06:43 | Outpatient (BNV) | payer OTHER, SELFPAY | PROVIDERS: PCP Internal Medicine; Visit Provider Internal Medicine Gastroenterology | DX: Z12.11 Encounter for screening for malignant neoplasm of colon (principal); K63.5 Polyp of colon; K64.0 First degree hemorrhoids | CPT/HCPCS: 45385 ==

== ENCOUNTER 2023-10-08 08:56 | Outpatient (AMB) | payer OTHER, SELFPAY ==
[2023-10-08 09:33] VITALS: BP 112/60; PULSE 99; TEMP 36.8; O2SAT 100; BMI 26.0
--- NOTE | 2023-10-08 09:33 | MHC.OFFWIV ---
Intake Vital Signs 10/08/23 09:33 Height 5 ft 5 in Weight 156 lb BMI 26.0 BP 112/60 Blood Pressure Location Rt brachial Position Sitting Pulse 99 Pulse Source Pulse Oximeter Temp 98.3 F Temp Source Oral Pulse Oximetry (%) 100 Oxygen Delivery Method Room Air Intake Visit Reasons: EST/fever/body aches ([phone]) Intake Note: Pt is here c/o fever and body aches that started 10/05/23. Patient Tobacco Use Status: Current everyday Tobacco user Allergies gold sodium thiomalate Adverse Reaction (Severe, Verified 10/08/23 09:33) Rash adhesive Adverse Reaction (Verified 10/08/23 09:33) Redness of Skin Do you need a note to return to daycare/school/sports/work: No HPI HPI Comments History of Present Illness Details Patient is a 43yo F who presents with flu like symptoms She said onset of minimal cough on Friday Woke up Friday with continual cough, worse at night Yesterday upon waking, onset of congestion, fever, chills, body aches and fatigue She said she feels run down Minimal L ear pain No abdominal pain nausea, vomiting, diarrhea Has tried mucinex without relief COVID test friday negative 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 Mother Diabetes Hypertension Stroke Heart attack Interstitial lung disease Sister Hypothyroidism Maternal Uncle Lung cancer Maternal Aunt Sarcoidosis of lung Social History Housing: House Alcohol intake: current Alcohol intake frequency: holidays/special occasions only Alcohol type: wine Patient Tobacco Use Status: Current everyday Tobacco user Tobacco use type: Cigarette Cigarette Packs Per Day: 0.5 Cigarettes Per Day: 10.0 Years Smoked: 25 e-Cigarette/Vaping Use: Never Used Second Hand Smoke Exposure: No service: No Current occupational status: employed Current occupational exposures/hazards: No Cognitive needs: No Hearing needs: No Vision needs: Yes Review of Systems Const Reports body aches, Reports chills, Reports fatigue, Reports fever(s) and Reports headache(s) Eyes Denies blurry vision ENT Reports otalgia, Reports headache(s), Reports nasal congestion, Reports nasal discharge, Denies sinus pain, Denies sinus pressure and Denies sore throat Card Denies chest pain and Denies dyspnea Resp Reports chest congestion, Reports cough, Denies pain with cough and Denies dyspnea GI Denies abdominal pain Musc Reports myalgias Neuro Reports headache(s) Endo Reports fatigue Physical Exam Vital Signs: Last Vital Signs Temp 98.3 F 10/08/23 09:33 Pulse 99 10/08/23 09:33 BP 112/60 10/08/23 09:33 Pulse Ox 100 10/08/23 09:33 Oxygen Delivery Method Room Air 10/08/23 09:33 BMI result Body Mass Index 26.0 General: Non-toxic, NAD. Speaking full sentences. Skin: Warm dry throughout Eye: EOMI HENT: Airway patent. Uvula midline. No pharyngeal erythema or edema. 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 +rhinorrhea without sinus tenderness to palpation Bilateral canals clear. TM non-erythematous, non-bulging. No TM perforation or hemotympanum noted. Respiratory: CTA bilaterally. No wheezes, rales or rhonchi Cardiac: RRR. No murmur MSK: Full ROM extremities. Neurology: A/O. No aphasia or facial droop. Gait without abnormality Psych: Good mood and affect Assessment & Plan Assessment & Plan (1) Cough: Code(s): R05.9 - Cough, unspecified Qualifiers: Cough type: acute Qualified Code(s): R05.1 - Acute cough Plan: Patient seen and evaluated. Vitals stable Lungs CTA Symptoms appear consistent with flu; will prescribe tamiflu. Discussed SI side effect with pt and she is aware to d/c and seek help if this occurs Increase fluids/rest COVID/flu/rsv swab obtained Patient gave verbal understanding and had no additional questions or concerns at time of discharge All questions answered Orders: Orders SARS-CoV2/FLU/RSV Today R05.9 - Cough, unspecified Medications: New oseltamivir (Tamiflu) 75 mg PO BID 10 caps 0RF 5 days Coding Level of Care Code Est Pt Level 3 (23698) Diagnoses Acute cough R05.1 Cough type: acute
== END 2023-10-08 10:52 | disposition home or self-care (01) ==
PROVIDERS: PCP Internal Medicine; Visit Provider Physician Assistant
DX: R05.1 Acute cough (principal)
CPT/HCPCS: 99213

== ENCOUNTER 2023-10-08 11:28 | Outpatient (REF) | payer OTHER, SELFPAY ==
[2023-10-08 13:03] LABS: Influenza A PCR POSITIVE (Negative); Influenza B PCR NEGATIVE (Negative); Resp Syncy Virus RNA Qual PCR NEGATIVE (Negative); SARS COV2 PCR INHOUSE NEGATIVE (Negative)
== END 2023-10-08 11:29 | disposition home or self-care (01) ==
LOC: HO.LNP 11:28
PROVIDERS: Visit Provider Physician Assistant
DX: R05.9 Cough, unspecified (principal); Z11.52 Encounter for screening for COVID-19; Z20.828 Contact with and (suspected) exposure to other viral communicable diseases
CPT/HCPCS: 0241U

== ENCOUNTER 2024-01-12 17:01 | Outpatient (AMB) | payer OTHER, SELFPAY ==
[2024-01-12 17:03] VITALS: BP 112/68; BMI 25.5
--- NOTE | 2024-01-12 17:03 | A.OFFPC_ITS ---
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 Accompanied by: Spouse Allergies gold sodium thiomalate Adverse Reaction (Severe, Verified 01/12/24 17:23) Rash adhesive Adverse Reaction (Verified 01/12/24 17:23) Redness of Skin Medication List - Last Reconciled 01/12/24 by Jess Rodriguez MD cetirizine (All Day Allergy (cetirizine)) 10 mg PO DAILY PRN 90 days levothyroxine 75 mcg PO DAILY 90 days melatonin 10 mg PO BEDTIME PRN mf-gvagfrb-pqu-iron fm-FA-vitK 18 mg-400 mcg- 25 mcg (One-A-Day Women's Complete(with vit K)) 1 tab PO DAILY norgestimate-ethinyl estradiol 0.18/0.215/0.25 mg-35 mcg (28) (Tri-Estarylla) 1 tab PO DAILY Tobacco use date assessed: 01/12/24 Dental Screening Dental Screen Date: 01/12/24 Did you have a dental visit in the last 12 months?: Yes Did you have a dental problem in the last 6 months where you did not have access to dental care?: No Was dental information given to patient?: Patient has dentist HPI HPI Comments History of Present Illness Details This is a 44 year old female with mild recurrent major depression and thrombocytopenia that comes for her physical exam accompanied by . Mammogram done December 2023 and was normal. Colocoscopy done September 2023 that needs to be repeated in 5 years. Pap smear done 2022. Her depression has been stable with counseling. I will repeat CBC to follow platelets. No active bleeding. Has a rash in left arm and has intermittent rash in different parts of the body that resolved on its own. FORMERLY [facility], [facility] Medical History (Updated 01/12/24 @ 17:37 by Jess Rodriguez MD) Smoker Hypothyroidism Mild recurrent major depression Physical exam Foot pain Surgical History History of colonoscopy History of esophagogastroduodenoscopy (EGD) History of tonsillectomy Family History Father No problems noted. Mother Diabetes Hypertension Stroke Heart attack Interstitial lung disease Sister Hypothyroidism Maternal Uncle Lung cancer Maternal Aunt Sarcoidosis of lung Social History Housing: House Alcohol intake: current Alcohol intake frequency: holidays/special occasions only Alcohol type: wine Patient Tobacco Use Status: Current everyday Tobacco user Tobacco use type: Cigarette Cigarette Packs Per Day: 0.5 Cigarettes Per Day: 10.0 Years Smoked: 25 e-Cigarette/Vaping Use: Never Used Second Hand Smoke Exposure: No service: No Current occupational status: employed Current occupational exposures/hazards: No Cognitive needs: No Hearing needs: No Vision needs: Yes Questionnaire PHQ-9 Over the last 2 weeks, how often have you been bothered by any of the following problems? 1. Little interest or pleasure in doing things: not at all 2. Feeling down, depressed, or hopeless: several days 3. Trouble falling or staying asleep, or sleeping too much: more than half the days 4. Feeling tired or having little energy: several days 5. Poor appetite or overeating: not at all 6. Feeling bad about yourself - or that you are a failure or have let yourself or your family down: more than half the days 7. Trouble concentrating on things, such as reading the newspaper or watching television: not at all 8. Moving or speaking so slowly that other people could have noticed. Or the opposite - being so fidgety or restless that you have been moving around a lot more than usual: not at all 9. Thoughts that you would be better off or of hurting yourself in some way: not at all Total score: 6 Depression Screening Interpretation: Positive Depression Screening Follow-up: Existing condition Depression Screening Done: Yes 80827 - PHQ-9 Billing: Yes Source: Developed by Drs. Long Bradley, Indy Floyd, Gurjit Luna and colleagues, with an educational jarrod from [employer]. Thrive Questionnaire Date Thrive assessed: 01/12/24 I am a: Patient What is your living situation today?: I have a steady place to live Within the past 12 months, did the food you bought not last and you didn't have the money to get more?: Never true Within the past 12 months, did you worry whether your food would run out before you got money to buy more?: Never true Do you have trouble paying for medicines?: No Do you have trouble getting transportation to medical appointments?: No Do you have trouble paying your heating and electricity bill?: No Do you have trouble taking care of your child, family member or friend?: No Do you have trouble with day-to-day activities such as bathing, preparing meals, shopping, managing finances, etc.?: No Are you currently unemployed and looking for a job?: No Are you interested in more education?: No Please select the resources that you would like help with: None Currently or been in a relationship where the following occur: no concerns reported THRIVE Score: 0 AUDIT C Alcohol Use Questionnaire (AUDIT-C) 1. How often do you have a drink containing alcohol?: 2-4 times a month 2. How many drinks containing alcohol do you have on a typical day when you are drinking?: 1 or 2 3. How often do you have six or more drinks on one occasion?: Never Total Score: 2 JORDYN-7 AMB Questionnaire JORDYN-7 Date JORDYN - 7 assessed: 01/12/24 Feeling nervous, anxious, or on edge: 2 = More than half the days Not being able to stop or control worryin = Not at all Worrying too much about different things: 2 = More than half the days Trouble relaxin = Not at all Being so restless that it is hard to sit still: 0 = Not at all Becoming easily annoyed or irritable: 1 = Several days Feeling afraid as if something awful might happen: 1 = Several days Total JORDYN-7 score (0-4 normal; 5-9 mild; 10-14 moderate; 15-21 severe): 6 Source: Developed by Drs. Long Bradley, Indy Floyd, Gurjit Luna and colleagues, with an educational jarrod from [employer]. JORDYN-7 Assessment Billing JORDYN-7 Assessment Tool: JORDYN-7 Assessment 90468 Review of Systems Const All systems reviewed & are unremarkable except as noted in HPI and below Eyes Reports no additional complaints, Denies change in vision and Denies other visual disturbances Card Denies chest pain at rest, Denies chest pain with activity, Denies edema, Denies irregular heart rhythm, Denies claudication, Denies dyspnea, Denies dyspnea on exertion, Denies orthopnea, Denies paroxysmal nocturnal dyspnea and Denies slow heart rate Resp Denies cough, Denies dyspnea and Denies dyspnea on exertion GI Denies abdominal pain, Denies change in bowel habits, Denies excessive flatus, Denies nausea and Denies vomiting Denies urinary incontinence, Denies urinary hesitancy and Denies urinary urgency Physical exam (Primary Care) Vital Signs: Last Vital Signs BP 112/68 01/12/24 17:03 BMI result Body Mass Index 25.5 Tobacco/Smoking Status: Tobacco use Status Tobacco use date assessed 01/12/24 01/12/24 17:12 Patient Tobacco Use Status Current everyday Tobacco 01/12/24 17:12 Tobacco use type Cigarette 01/12/24 17:12 e-Cigarette/Vaping Use Never Used 01/12/24 17:12 PHQ-9: PHQ-9 Score PHQ-9: Total score 6 01/12/24 17:27 Depression Screening Interpretation: Positive Depression Screening Follow-up: Existing condition Thrive Assessment: Date of Thrive Assessment Date Thrive assessed 01/12/24 01/12/24 17:12 Currently or been in a relationship where the following occur: no concerns reported Const Orientation/consciousness: patient oriented x3 HENMT Head: Yes normal to inspection, Yes normocephalic and Yes atraumatic Ears: external ears normal Eyes General: appearance normal, both eyes and all related structures Eyelids: Yes eyelids normal Conjunctivae: conjunctivae normal Neck Neck: Yes normal visual inspection and Yes supple Resp Effort & Inspection: normal respiratory effort Auscultation: clear to auscultation bilaterally Cardio Jugular venous distension: no JVD Rate: regular rate Rhythm: regular rhythm Heart sounds: S1 normal heart sound present and S2 normal heart sound present GI Inspection: Yes normal to inspection Palpation (GI): Soft to palpation and nontender Auscultation: normal bowel sounds Skin Rashes: rashes noted Neuro General: patient oriented x3 and no focal motor deficits Extrem General: Yes full ROM Assessment and Plan Assessment & Plan (1) Physical exam: Code(s): Z00.00 - Encounter for general adult medical examination without abnormal findings Plan: Repeat in a year. (2) Mild recurrent major depression: Code(s): F33.0 - Major depressive disorder, recurrent, mild Plan: Continue counseling. (3) Thrombocytopenia: Code(s): D69.6 - Thrombocytopenia, unspecified Plan: Repeat cbc. Orders: Orders Thyroid Stimulating Hormone Today E06.3 - Autoimmune thyroiditis Comprehensive [employer]. Panel Fast Today Z00.00 - Encounter for general adult medical examination without abnormal findings Complete Blood Count Auto Diff Today D69.6 - Thrombocytopenia, unspecified Lipid Panel Today E78.5 - Hyperlipidemia, unspecified, Z00.00 - Encounter for general adult medical examination without abnormal findings Referrals Allergy & Immunology Referral R21 - Rash and other nonspecific skin eruption Coding Level of Care Code Est Pt Prev Care 40-64y(86091) Diagnoses Physical exam Z00.00 Mild recurrent major depression F33.0 Thrombocytopenia D69.6 Additional Codes JORDYN-7 Assessment Billing - JORDYN-7 Assessment Tool: JORDYN-7 Assessment 18632 ([id number]) Time Spent (min) 34
== END 2024-01-12 17:41 | disposition home or self-care (01) ==
PROVIDERS: PCP Internal Medicine; Visit Provider Internal Medicine
DX: Z00.00 Encounter for general adult medical examination without abnormal findings (principal); F33.0 Major depressive disorder, recurrent, mild; D69.6 Thrombocytopenia, unspecified
CPT/HCPCS: 99396

== ENCOUNTER 2024-01-17 07:13 | Outpatient (REF) | payer OTHER, SELFPAY ==
[2024-01-17 07:54] LABS: Basophils Absolute Auto 0.1 X10*3/uL (0.0-0.2); Basophils Percent Auto 1.1 % (0-2); Eosinophils Absolute Auto 0.3 X10*3/uL (0.0-0.4); Eosinophils Percent Auto 4.6 % (0-4); Hematocrit 37.9 % (37.0-47.0); Imm Gran Abs Auto 0.03 X10*3/uL (0.00-0.03); Imm Gran Pct Auto 0.5 % (0.0-0.4); Lymphocytes Absolute Auto 1.6 X10*3/uL (1.2-4.9); Lymphocytes Percent Auto 29.3 % (20-40); MANUAL DIFF FLAG NO; Mean Corpuscular HGB Conc 34.3 g/dl (31.0-35.0); Mean Corpuscular Hemoglobin 32.5 pg (27.0-33.0); Mean Corpuscular Volume 94.8 fL (80.0-98.0); Mean Platelet Volume 10.7 fL (9.4-12.3); Monocytes Absolute Auto 0.4 X10*3/uL (0.1-1.2); Neutrophils Absolute Auto 3.1 x10*3/uL (2.0-8.3); Neutrophils Percent Auto 56.5 % (45-73); Platelet Count 205 X10*3/uL (160-400); Red Cell Distribution Width 12.6 % (11.0-16.0); White Blood Count 5.5 X10*3/uL (4.8-10.8)
[2024-01-17 08:48] LABS: Alanine Aminotransferase 16 U/L (0-31); Albumin Level 3.9 g/dL (3.5-5.0); Alkaline Phosphatase 62 U/L (39-117); Anion Gap 15 (12-20); Aspartate Amino Transferase 21 U/L (5-31); Bilirubin Total 0.5 mg/dL (0.0-1.0); Blood Urea Nitrogen 12 mg/dL (9-16); Calcium 8.8 mg/dL (8.4-10.2); Carbon Dioxide 21 mmol/L (22-29); Chloride 108 mmol/L (96-108); Cholesterol 213 mg/dL (<200); Estimated Glomerular Filt Rate > 60; Glucose Fasting 94 mg/dL (60-99); HDL Cholesterol 74 mg/dL (>40); LDL Cholesterol Calculated 128 mg/dL (<100); Potassium 4.5 mmol/L (3.3-5.1); Sodium 139 mmol/L (135-145); Total Protein 6.8 g/dL (6.5-8.0); Triglycerides 59 mg/dL (<150)
[2024-01-17 09:06] LABS: Thyroid Stimulating Hormone 6.14 uIU/mL (0.32-4.0)
== END 2024-01-17 07:14 | disposition home or self-care (01) ==
LOC: HO.LAB 07:13
PROVIDERS: PCP Internal Medicine; Visit Provider Internal Medicine
DX: Z00.00 Encounter for general adult medical examination without abnormal findings (principal); E06.3 Autoimmune thyroiditis; D69.6 Thrombocytopenia, unspecified; E78.5 Hyperlipidemia, unspecified
CPT/HCPCS: 36415; 80053; 80061; 84443; 85025

== ENCOUNTER 2024-07-13 16:58 | Outpatient (AMB) | payer OTHER, SELFPAY ==
--- NOTE | 2024-07-13 17:01 | MHC.PC.OV ---
Vital Signs 07/13/24 17:04 Height 5 ft 5 in Weight 157 lb BMI 26.1 BP 110/76 Blood Pressure Location Lt brachial Position Sitting Intake Visit Reasons: depressionk, thyroid Intake Note: Patient here for a follow up Depression, Thyroid Circulation Tender Required: No Accompanied by: Self / Same As Patient Allergies gold sodium thiomalate Adverse Reaction (Severe, Verified 07/13/24 17:14) Rash adhesive Adverse Reaction (Verified 07/13/24 17:14) Redness of Skin Medication List - Last Reconciled 07/13/24 by Jess Rodriguez MD cetirizine (All Day Allergy (cetirizine)) 10 mg PO DAILY PRN 90 days levothyroxine 100 mcg PO DAILY 90 days melatonin 10 mg PO BEDTIME PRN ni-quvpujv-aoh-iron fm-FA-vitK 18 mg-400 mcg- 25 mcg (One-A-Day Women's Complete(with vit K)) 1 tab PO DAILY norgestimate-ethinyl estradiol 0.18/0.215/0.25 mg-35 mcg (28) (Tri-Estarylla) 1 tab PO DAILY Tobacco use date assessed: 01/12/24 Dental Screening Dental Screen Date: 01/12/24 HPI HPI Comments History of Present Illness Details This is a 44 year old female with autoimmune thyroiditis and insomnia that comes today accompanied by for follow up on her conditions. I will repeat TSH. Insomnia stable with melatonin as needed. No chest pain or shortness of breath. She is a smoker and was advise to quit. [facility]PLACED BY [facility] Medical History (Updated 07/13/24 @ 19:19 by Jess Rodriguez MD) Thrombocytopenia Smoker Hypothyroidism Mild recurrent major depression Physical exam Foot pain Surgical History History of colonoscopy History of esophagogastroduodenoscopy (EGD) History of tonsillectomy Family History Father No problems noted. Mother Diabetes Hypertension Stroke Heart attack Interstitial lung disease Sister Hypothyroidism Maternal Uncle Lung cancer Maternal Aunt Sarcoidosis of lung Social History Housing: House Alcohol intake: current Alcohol intake frequency: holidays/special occasions only Alcohol type: wine Patient Tobacco Use Status: Current everyday Tobacco user Tobacco use type: Cigarette Cigarette Packs Per Day: 0.5 Cigarettes Per Day: 10.0 Years Smoked: 25 Packs Per Year: 13 Packs per year/per ci.50 e-Cigarette/Vaping Use: Never Used Second Hand Smoke Exposure: No service: No Current occupational status: employed Current occupational exposures/hazards: No Cognitive needs: No Hearing needs: No Vision needs: Yes Questionnaire Thrive Questionnaire Date Thrive assessed: 01/12/24 AUDIT C Alcohol Use Questionnaire (AUDIT-C) 1. How often do you have a drink containing alcohol?: Monthly or less 2. How many drinks containing alcohol do you have on a typical day when you are drinking?: 1 or 2 3. How often do you have six or more drinks on one occasion?: Never Total Score: 1 Score Reviewed/Action Taken: No JORDYN-7 AMB Questionnaire JORDYN-7 Date JORDYN - 7 assessed: 01/12/24 Source: Developed by Drs. Long Bradley, Indy Floyd, Gurjit Luna and colleagues, with an educational jarrod from [employer]. Review of Systems Const All systems reviewed & are unremarkable except as noted in HPI and below Card Denies chest pain at rest, Denies chest pain with activity, Denies edema, Denies irregular heart rhythm, Denies claudication, Denies dyspnea, Denies dyspnea on exertion, Denies orthopnea, Denies paroxysmal nocturnal dyspnea and Denies slow heart rate Resp Denies cough, Denies dyspnea and Denies dyspnea on exertion GI Denies abdominal pain, Denies change in bowel habits, Denies excessive flatus, Denies nausea and Denies vomiting Physical exam (Primary Care) Vital Signs: Last Vital Signs BP 110/76 07/13/24 17:04 BMI result Body Mass Index 26.1 Tobacco/Smoking Status: Tobacco use Status Tobacco use date assessed 01/12/24 07/13/24 17:01 Patient Tobacco Use Status Current everyday Tobacco 07/13/24 17:01 Tobacco use type Cigarette 07/13/24 17:01 e-Cigarette/Vaping Use Never Used 07/13/24 17:01 Are you ready to quit: No Tobacco cessation counseling provided: Yes Items discussed: [employer] Relapse Prevention: discussed the importance of a supportive environment, discussed extending NRT, discussed negative mood or depression after quitting, weight gain after smoking is common and discussed dietary, exercise and/or lifestyle changes Number of minutes spent counselin CPT code: Less than 3 minutes Thrive Assessment: Date of Thrive Assessment Date Thrive assessed 01/12/24 07/13/24 17:01 Resp Effort & Inspection: normal respiratory effort Auscultation: clear to auscultation bilaterally Cardio Jugular venous distension: no JVD Rate: regular rate Rhythm: regular rhythm Heart sounds: S1 normal heart sound present and S2 normal heart sound present Extrem General: Yes full ROM Coding Level of Care Code Est Pt Level 3 (03969) Complex EM visit Add On G2211 Diagnoses Autoimmune thyroiditis E06.3 Insomnia G47.00 Time Spent (min) 20 Assessment & Plan Assessment & Plan (1) Autoimmune thyroiditis: Code(s): E06.3 - Autoimmune thyroiditis Category: Medical Plan: Continue levothyroixine. (2) Insomnia: Code(s): G47.00 - Insomnia, unspecified Category: Medical Plan: Continue melatonin prn. Orders: Orders Thyroid Stimulating Hormone Today E06.3 - Autoimmune thyroiditis Medications: Changed From melatonin 10 mg PO BEDTIME PRN Insomnia To melatonin 10 mg PO BEDTIME PRN 90 caps 1RF Insomnia 90 days Refilled cetirizine (All Day Allergy (cetirizine)) 10 mg PO DAILY PRN 90 tabs 1RF allergy symptoms 90 days
[2024-07-13 17:04] VITALS: BP 110/76; BMI 26.1
== END 2024-07-13 17:21 | disposition home or self-care (01) ==
LOC: HO.HMCH 16:59
PROVIDERS: PCP Internal Medicine; Visit Provider Internal Medicine
DX: E06.3 Autoimmune thyroiditis (principal); G47.00 Insomnia, unspecified

== ENCOUNTER → 2024-07-13 16:58 | Outpatient (BNVA) | payer OTHER, SELFPAY | PROVIDERS: PCP Internal Medicine; Visit Provider Internal Medicine | DX: R06.3 Periodic breathing (principal); G47.00 Insomnia, unspecified | CPT/HCPCS: 99212 ==

== ENCOUNTER 2024-07-24 07:14 | Outpatient (REF) | payer OTHER, SELFPAY ==
[2024-07-24 08:33] LABS: Thyroid Stimulating Hormone 4.25 uIU/mL (0.32-4.0)
== END 2024-07-24 07:15 | disposition home or self-care (01) ==
LOC: HO.LAB 07:14
PROVIDERS: PCP Internal Medicine; Visit Provider Internal Medicine
DX: E06.3 Autoimmune thyroiditis (principal)
CPT/HCPCS: 36415; 84443

== ENCOUNTER 2024-09-04 07:06 | Outpatient (REF) | payer OTHER, SELFPAY ==
[2024-09-04 08:26] LABS: Thyroid Stimulating Hormone 1.22 uIU/mL (0.32-4.0)
== END 2024-09-04 07:07 | disposition home or self-care (01) ==
LOC: HO.LAB 07:06
PROVIDERS: PCP Internal Medicine; Visit Provider Internal Medicine
DX: E06.3 Autoimmune thyroiditis (principal)
CPT/HCPCS: 36415; 84443

== ENCOUNTER 2025-01-13 17:16 | Outpatient (AMB) | payer OTHER, SELFPAY ==
--- NOTE | 2025-01-13 17:20 | MHC.PC.OV ---
Vital Signs 01/13/25 17:23 Height 5 ft 5 in Weight 162 lb BMI 27.0 BP 126/70 Blood Pressure Location Lt brachial Position Sitting Intake Visit Reasons: annual exam Intake Note: Patient here for a physical exam Fire Sprinkler Service Technician Required: No Accompanied by: Self / Same As Patient Allergies gold sodium thiomalate Adverse Reaction (Severe, Verified 01/13/25 17:46) Rash adhesive Adverse Reaction (Verified 01/13/25 17:46) Redness of Skin Medication List - Last Reconciled 01/13/25 by Jess Rodriguez MD cetirizine (All Day Allergy (cetirizine)) 10 mg PO DAILY PRN 90 days levothyroxine 112 mcg PO DAILY 90 days melatonin 10 mg PO BEDTIME PRN 90 days eg-lqedzad-bxm-iron fm-FA-vitK 18 mg-400 mcg- 25 mcg (One-A-Day Women's Complete(with vit K)) 1 tab PO DAILY norgestimate-ethinyl estradiol 0.18/0.215/0.25 mg-0.035mg (28) (Tri-Estarylla) 1 tab PO DAILY Tobacco use date assessed: 01/13/25 Dental Screening Dental Screen Date: 01/13/25 Did you have a dental visit in the last 12 months?: Yes Did you have a dental problem in the last 6 months where you did not have access to dental care?: No Was dental information given to patient?: Patient has dentist HPI HPI Comments History of Present Illness Details The patient is a 45-year-old female presenting for a routine physical examination and health maintenance update. She has a notable history of chronic conditions such as gastroesophageal reflux disease (GERD), diverticulosis, and hemorrhoids. Her healthcare management includes control of allergies to gold and adhesives with cetirizine, and hypothyroidism managed with levothyroxine. Additionally, she has undergone previously endoscopy, colonoscopy, and tonsillectomy procedures. She reveals a pattern of smoking half a pack of cigarettes a day and expresses intent and willingness to cease smoking with assistance through medication like Chantix, understanding the potential for adverse effects. The patient discusses concerns with menstrual irregularities, prolonged periods without menstruation interrupted by longer spells of active bleeding, potentially indicative of perimenopausal changes. Her familial medical history includes significant incidences of diabetes, cardiovascular disease, and sarcoidosis. Health maintenance is managed regularly with current vaccinations. Her prior colonoscopy from 2023 show no abnormalities, and her last Pap smear from 2022 was within normal limits. Planning for further imaging and blood work includes ensuring updated cholesterol, glucose, liver, kidney, and thyroid function status as elements of her routine preventive health care. - Vaccinations up to date. - Colonoscopy performed in 2023 with normal findings. - Mammogram performed in December 2023 with normal findings. - Pap smear conducted in 2022 with normal results. - Blood work for thyroid (normal in August); further checks for cholesterol, glucose, liver, and kidney functions pending. - Discussion regarding smoking cessation supports. [facility] Medical History (Updated 01/14/25 @ 08:22 by Jess Rodriguez MD) Thrombocytopenia Smoker Hypothyroidism Mild recurrent major depression Physical exam Foot pain Surgical History History of colonoscopy History of esophagogastroduodenoscopy (EGD) History of tonsillectomy Family History Father No problems noted. Mother Diabetes Hypertension Stroke Heart attack Interstitial lung disease Sister Hypothyroidism Maternal Uncle Lung cancer Maternal Aunt Sarcoidosis of lung Social History Housing: House Alcohol intake: current Alcohol intake frequency: holidays/special occasions only Alcohol type: wine Patient Tobacco Use Status: Current everyday Tobacco user Tobacco use type: Cigarette Cigarette Packs Per Day: 0.5 Cigarettes Per Day: 10.0 Years Smoked: 25 e-Cigarette/Vaping Use: Never Used Second Hand Smoke Exposure: No service: No Current occupational status: employed Current occupational exposures/hazards: No Cognitive needs: No Hearing needs: No Vision needs: Yes Questionnaire PHQ-9 Over the last 2 weeks, how often have you been bothered by any of the following problems? 1. Little interest or pleasure in doing things: not at all 2. Feeling down, depressed, or hopeless: not at all 3. Trouble falling or staying asleep, or sleeping too much: not at all 4. Feeling tired or having little energy: not at all 5. Poor appetite or overeating: not at all 6. Feeling bad about yourself - or that you are a failure or have let yourself or your family down: not at all 7. Trouble concentrating on things, such as reading the newspaper or watching television: not at all 8. Moving or speaking so slowly that other people could have noticed. Or the opposite - being so fidgety or restless that you have been moving around a lot more than usual: not at all 9. Thoughts that you would be better off or of hurting yourself in some way: not at all Total score: 0 Depression Screening Interpretation: Negative Depression Screening Done: Yes 85553 - PHQ-9 Billing: Yes Source: Developed by Drs. Long Bradley, Indy Floyd, Gurjit Luna and colleagues, with an educational jarrod from [employer]. Thrive Questionnaire Date Thrive assessed: 01/13/25 I am a: Patient What is your living situation today?: I have a steady place to live Within the past 12 months, did the food you bought not last and you didn't have the money to get more?: Never true Within the past 12 months, did you worry whether your food would run out before you got money to buy more?: Never true Do you have trouble paying for medicines?: No Do you have trouble getting transportation to medical appointments?: No Do you have trouble paying your heating and electricity bill?: No Do you have trouble taking care of your child, family member or friend?: No Do you have trouble with day-to-day activities such as bathing, preparing meals, shopping, managing finances, etc.?: No Are you currently unemployed and looking for a job?: No Are you interested in more education?: No Please select the resources that you would like help with: None Currently or been in a relationship where the following occur: No concerns reported THRIVE Score: 0 AUDIT C Alcohol Use Questionnaire (AUDIT-C) 1. How often do you have a drink containing alcohol?: 2-3 times a week 2. How many drinks containing alcohol do you have on a typical day when you are drinking?: 1 or 2 3. How often do you have six or more drinks on one occasion?: Never Total Score: 3 JORDYN-7 AMB Questionnaire JORDYN-7 Date JORDYN - 7 assessed: 01/13/25 Feeling nervous, anxious, or on edge: 0 = Not at all Not being able to stop or control worryin = Not at all Worrying too much about different things: 0 = Not at all Trouble relaxin = Not at all Being so restless that it is hard to sit still: 0 = Not at all Becoming easily annoyed or irritable: 0 = Not at all Feeling afraid as if something awful might happen: 0 = Not at all Total JORDYN-7 score (0-4 normal; 5-9 mild; 10-14 moderate; 15-21 severe): 0 Source: Developed by Drs. Long Bradley, Indy Floyd, Gurjit Luna and colleagues, with an educational jarrod from [employer]. JORDYN-7 Assessment Billing JORDYN-7 Assessment Tool: JORDYN-7 Assessment 77128 Review of Systems Const All systems reviewed & are unremarkable except as noted in HPI and below Card Denies chest pain at rest, Denies chest pain with activity, Denies edema, Denies irregular heart rhythm, Denies claudication, Denies dyspnea, Denies dyspnea on exertion, Denies orthopnea, Denies paroxysmal nocturnal dyspnea and Denies slow heart rate Resp Denies cough, Denies dyspnea and Denies dyspnea on exertion GI Denies abdominal pain, Denies change in bowel habits, Denies excessive flatus, Denies nausea and Denies vomiting Neuro Denies behavioral changes and Denies lack of coordination Psych Denies behavioral changes Physical exam (Primary Care) Vital Signs: Last Vital Signs BP 126/70 01/13/25 17:23 BMI result Body Mass Index 27.0 Tobacco/Smoking Status: Tobacco use Status Tobacco use date assessed 01/13/25 01/13/25 17:34 Patient Tobacco Use Status Current everyday Tobacco 01/13/25 17:20 Tobacco use type Cigarette 01/13/25 17:20 e-Cigarette/Vaping Use Never Used 01/13/25 17:20 Are you ready to quit: Yes Tobacco cessation counseling provided: Yes Items discussed: Nicotine replacement and QuitWorks Relapse Prevention: discussed the importance of a supportive environment, discussed extending NRT, discussed negative mood or depression after quitting, weight gain after smoking is common and discussed dietary, exercise and/or lifestyle changes Number of minutes spent counselin CPT code: 54494 - 4-10 Minutes PHQ-9: PHQ-9 Score PHQ-9: Total score 0 01/13/25 17:49 Depression Screening Interpretation: Negative Thrive Assessment: Date of Thrive Assessment Date Thrive assessed 01/13/25 01/13/25 17:34 Currently or been in a relationship where the following occur: No concerns reported [facility] Head: Yes normal to inspection, Yes normocephalic and Yes atraumatic Ears: external ears normal Eyes General: appearance normal, both eyes and all related structures Eyelids: Yes eyelids normal Conjunctivae: conjunctivae normal Neck Neck: Yes normal visual inspection and Yes supple Resp Effort & Inspection: normal respiratory effort Auscultation: clear to auscultation bilaterally Cardio Jugular venous distension: no JVD Rate: regular rate Rhythm: regular rhythm Heart sounds: S1 normal heart sound present and S2 normal heart sound present GI Inspection: Yes normal to inspection Palpation (GI): Soft to palpation and nontender Auscultation: normal bowel sounds Skin General skin exam: no rashes or lesions noted Neuro General: no focal motor deficits Extrem General: Yes full ROM Psych Appearance: grossly normal Coding Level of Care Code Est Pt Level 3 (72380) Est Pt Prev Care 40-64y(69574) Diagnoses Physical exam Z00.00 Abnormal menses N92.6 Rash R21 Additional Codes JORDYN-7 Assessment Billing - JORDYN-7 Assessment Tool: JORDYN-7 Assessment 12340 ([id number]) PHQ-9 - 32679 - PHQ-9 Billing: Yes ([id number]) Vital Signs *Quality* - CPT code: 20242 - 4-10 Minutes ([id number]) Time Spent (min) 36 Assessment & Plan Assessment & Plan (1) Physical exam: Code(s): Z00.00 - Encounter for general adult medical examination without abnormal findings Category: Medical (2) Abnormal menses: Code(s): N92.6 - Irregular menstruation, unspecified Category: Medical (3) Rash: Code(s): R21 - Rash and other nonspecific skin eruption Category: Medical Plan Plans to update health maintenance were made, including the ordering of comprehensive blood work and scheduling a mammogram. A prescription for Chantix will be considered for smoking cessation, with care to monitor for psychological side effects. Given the irregular menstrual patterns suggestive of perimenopause, a gynecology referral is advisable for further assessment. Dermatology consultation recommendations have also been provided for her undiagnosed skin condition. Patient was informed and verbally consented to the use of an ambient scribe for clinic note documentation during this visit. I discussed the completion of pending screening measures, including mammograms and comprehensive blood work for overall health assessment. Smoking cessation support with Chantix was mentioned with fair warning about possible adverse effects. The patient has expressed awareness and consent in pursuing this option. Menstrual irregularities warranting gynecological evaluation were noted, with perimenopausal changes considered likely. I advised the patient of the normality of these changes at her age and offered reassurance. She has been guided towards dermatological evaluation for the erratic skin condition. Follow-ups are planned to ensure coordinated care with health records to aid in future interventions. Orders: Orders Comprehensive [place]. Panel Fast 01/13/25 Z00.00 - Encounter for general adult medical examination without abnormal findings Thyroid Stimulating Hormone 01/13/25 E06.3 - Autoimmune thyroiditis MM tomosynthesis screening BI 01/13/25 Z12.31 - Encounter for screening mammogram for malignant neoplasm of breast Lipid Panel 01/13/25 Z00.00 - Encounter for general adult medical examination without abnormal findings Referrals Dermatology Referral L98.9 - Disorder of the skin and subcutaneous tissue, unspecified SCRAP BALER Referral N92.6 - Irregular menstruation, unspecified Medications: New varenicline tartrate 1 ea PO PER PKG DIR 28 days 28 ea 0RF Patient Instructions: - Follow up with blood work orders for cholesterol, glucose, kidney, and liver panels. - Schedule and complete a mammogram. - Consideration for Chantix as smoking cessation aid; report any adverse effects immediately. - Arrange a consultation with a community services coordinator regarding menstrual irregularities. - Contact a middle school english teacher for skin condition evaluation; bring photo documentation. - Continue taking medications as prescribed and update with any changes in symptoms.
[2025-01-13 17:23] VITALS: BP 126/70; BMI 27.0
== END 2025-01-13 18:08 | disposition home or self-care (01) ==
LOC: HO.HMCH 17:17
PROVIDERS: PCP Internal Medicine; Visit Provider Internal Medicine
DX: Z00.00 Encounter for general adult medical examination without abnormal findings (principal); N92.6 Irregular menstruation, unspecified; R21 Rash and other nonspecific skin eruption; F17.210 Nicotine dependence, cigarettes, uncomplicated

== ENCOUNTER → 2025-01-13 17:16 | Outpatient (BNVA) | payer OTHER, SELFPAY | PROVIDERS: PCP Internal Medicine; Visit Provider Internal Medicine | DX: Z00.00 Encounter for general adult medical examination without abnormal findings (principal); K21.9 Gastro-esophageal reflux disease without esophagitis; K57.90 Diverticulosis of intestine, part unspecified, without perforation or abscess without bleeding; K64.9 Unspecified hemorrhoids; N92.6 Irregular menstruation, unspecified; R21 Rash and other nonspecific skin eruption; E06.3 Autoimmune thyroiditis; L98.9 Disorder of the skin and subcutaneous tissue, unspecified | CPT/HCPCS: 96127; 99212 ==

== ENCOUNTER 2025-01-15 07:16 | Outpatient (REF) | payer OTHER, SELFPAY ==
--- OUTSIDE RECORDS SUMMARY | 2025-01-15 07:18 | XMS_ITS | Patient Health Record ---
[facility] Address [address] [place] [address] Care Team Providers Care Warehouse Manager Name Role Phone Sudeep KINNEY, Jess Primary Care Provider Unavail able Kenia John Unavailable [phone] Allergies Allergen (clinical drug ingredient) Drug/Non Drug Allergy documented on EMR Reaction Allergy Type Onset Date Status magnesium sulfate Epsom Salt red spots,itchy Drug Allergy Active Reason For Referral No Information Medications Medication SIG (Take, Route, Frequency, Duration) Notes Start Date End Date Status Multivitamin Adult A ctive Malathion Active Estarylla 0.25-35 MG-MCG 1 tablet Orally Once a day for 28 day(s) Active Work Note . . . Patient off of w ork 09/20 and 09/21 due to foot procedure 09/19/2021 Active Immunizations Vaccine Route Administration Date Status Comme nts COVID-19 Pfizer BioNTech Vaccine Unknown 07/31/2021 Administered 1st 12/17/2020 2nd 01/08/2021 Social History Tobacco Use: Social History Observation Description Date Details (start date - stop date) Current Smoker NA - NA Tobacco Use/Smoking Question Answer Notes Are you a: current smoker How often do you smoke cigarettes? every day How many cigarettes a day do you smoke? 6-10 Alcohol Screen Question Answer Notes Did you have a drink contain ing alcohol in the past year? Yes How often did you have a dri nk containing alcohol in the past year? 2 to 3 times a week (3 points) How often did you have 6 or more drinks on one occasion in the past year? Weekly (3 points) Points 6 Interpretation Positive Tobacco use other than smoking: Question Answer Notes Are you an other tobacco user? No Problems Problem Type SNOMED Code ICD Code Onset Dates Problem Status W/U Status Risk Notes Problem [id number] Hammer toe of right foot (M20.41) Active confirmed Problem 39739905 Non-pressure ulcer of right lower extremity, limited to breakdown of skin (L97.911) Active confirmed Plan Of Treatment No Information Insurance Providers Payer Name Payer Address Payer Phone Subscriber Number Group Number Insured Name Patient Relationship to Insured Coverage Start Date Coverage End Date [facility] [address] [place] [id number] Arlin Ruiz Self - patient is the insured Medical (General) History Medical History History ICD Code depression Surgical History Surgery Date(Month/Year) wisdom teeth extraction Tooth extraction 05/2021
[2025-01-15 09:55] LABS: Alanine Aminotransferase 21 U/L (0-31); Albumin Level 3.9 g/dL (3.5-5.0); Alkaline Phosphatase 59 U/L (39-117); Anion Gap 12 (12-20); Aspartate Amino Transferase 25 U/L (5-31); Bilirubin Total 0.5 mg/dL (0.0-1.0); Blood Urea Nitrogen 14 mg/dL (9-16); Calcium 9.1 mg/dL (8.4-10.2); Carbon Dioxide 22 mmol/L (22-29); Chloride 110 mmol/L (96-108); Cholesterol 188 mg/dL (<200); Estimated Glomerular Filt Rate > 60; Glucose Fasting 89 mg/dL (60-99); HDL Cholesterol 57 mg/dL (>40); LDL Cholesterol Calculated 113 mg/dL (<100); Potassium 4.1 mmol/L (3.3-5.1); Sodium 140 mmol/L (135-145); Total Protein 6.8 g/dL (6.5-8.0); Triglycerides 92 mg/dL (<150)
[2025-01-15 10:15] LABS: Thyroid Stimulating Hormone 1.13 uIU/mL (0.32-4.0)
== END 2025-01-15 07:17 | disposition home or self-care (01) ==
LOC: HO.LAB 07:16
PROVIDERS: PCP Internal Medicine; Visit Provider Internal Medicine
DX: Z00.00 Encounter for general adult medical examination without abnormal findings (principal); E06.3 Autoimmune thyroiditis
CPT/HCPCS: 36415; 80053; 80061; 84443

== ENCOUNTER 2025-01-22 08:04 | Outpatient (REF) | payer OTHER, SELFPAY ==
--- OUTSIDE RECORDS SUMMARY | 2025-01-22 08:06 | XMS_ITS | Patient Health Record ---
[facility] Address [address] [place] [address] Care Team Providers Care Fishing Vessel Deckhand Name Role Phone Sudeep KINNEY, Jess Primary Care Provider Unavail able Kenia John Unavailable [phone] Allergies Allergen (clinical drug ingredient) Drug/Non Drug [...] Problem Status W/U Status Risk Notes Problem [id number] Hammer toe of right foot (M20.41) Active confirmed Problem 42477178 Non-pressure ulcer of right lower extremity, limited to breakdown of skin (L97.911) Active confirmed Plan Of Treatment No Information Insurance Providers Payer Name Payer Address Payer Phone Subscriber Number Group Number Insured Name Patient Relationship to Insured Coverage Start Date Coverage End Date [facility] [address] [place] [id number] Arlin Ruiz Self - patient is the insured Medical (General) History Medical History History ICD Code depression Surgical History Surgery Date(Month/Year) wisdom teeth extraction Tooth extraction 05/2021
== END 2025-01-22 08:05 | disposition home or self-care (01) ==
LOC: HO.MAMMO 08:04
PROVIDERS: PCP Internal Medicine; Visit Provider Internal Medicine
DX: Z12.31 Encounter for screening mammogram for malignant neoplasm of breast (principal)
CPT/HCPCS: 77063; 77067

== ENCOUNTER → 2025-01-22 08:15 | Outpatient (BNV) | payer OTHER, SELFPAY | PROVIDERS: PCP Internal Medicine; Visit Provider Internal Medicine | DX: Z12.31 Encounter for screening mammogram for malignant neoplasm of breast (principal) | CPT/HCPCS: 77063; 77067 ==

== ENCOUNTER 2025-03-22 04:38 | Emergency (ER) | payer OTHER, SELFPAY ==
[2025-03-22 04:53] VITALS: BP 128/83; PULSE 80; RESP 16; TEMP 36.4; O2SAT 98; BMI 27.4
== END 2025-03-22 06:18 | disposition left against medical advice (07) ==
PROVIDERS: Emergency Provider Emergency Medicine
DX: J34.89 Other specified disorders of nose and nasal sinuses (principal); Z53.21 Procedure and treatment not carried out due to patient leaving prior to being seen by health care provider
CPT/HCPCS: 99281

== ENCOUNTER 2025-04-14 06:00 | Outpatient (REF) | payer OTHER, SELFPAY ==
--- OUTSIDE RECORDS SUMMARY | 2025-04-14 06:03 | XMS_ITS | Patient Health Record ---
Author Organization [facility] Address [address] [place] [address] Care Team Providers Care Director Volunteer Services Name Role Phone Jorge Staples [phone] Reason For Referral No Information Social History Social History Sexual History: Social Info Question Answer Notes Sexual History Had sex in the past 12 months (vaginal, oral, or anal)? Yes Drugs/Alcohol: Social Info Question Answer Notes Drugs Have you used drugs other than those for medical reasons in the past 12 months? No Alcohol Screen Did you have a drink containing alcohol in the past year? Yes Points 0 Interpretation Negative Tobacco Use: Social Info Question Answer Notes Tobacco Use/Smoking Are you a former smoker Tobacco use other than smoking: Are you an other tobac co user? No Plan Of Treatment No Information Insurance Providers Payer Name Payer Address Payer Phone Subscriber Number Group Number Insured Name Patient Relationship to Insured Coverage Start Date Coverage End Date [facility] [address] [place], [place] [id number] [phone] [id number] Arlin Ruiz Self - patient is the insured 9
[2025-04-14 08:58] LABS: Resp Syncy Virus RNA Qual PCR NEGATIVE (Negative); SARS COV2 PCR INHOUSE NEGATIVE (Negative)
== END 2025-04-14 06:01 | disposition home or self-care (01) ==
LOC: HO.LAB 06:00
PROVIDERS: PCP Internal Medicine; Visit Provider Internal Medicine
DX: R09.89 Other specified symptoms and signs involving the circulatory and respiratory systems (principal)
CPT/HCPCS: 87637

== ENCOUNTER 2025-04-15 07:19 | Outpatient (AMB) | payer OTHER, SELFPAY ==
--- OUTSIDE RECORDS SUMMARY | 2025-04-15 07:22 | XMS_ITS | Patient Health Record ---
Author Organization [facility] Address [address] [place] [address] Care Team Providers Care Invasive Cardiovascular Technologist Name Role Phone Jorge Staples [phone] Reason For Referral No Information Social History [...] Insured Coverage Start Date Coverage End Date [facility] [address] [place], [place] [id number] [phone] [id number] Arlin Ruiz Self - patient is the insured 9
[2025-04-15 07:52] VITALS: BP 118/62; PULSE 70; TEMP 36.8; O2SAT 97; BMI 27.8
--- NOTE | 2025-04-15 07:52 | AM.OFFWIN_ITS ---
Intake Vital Signs 04/15/25 07:52 Height 5 ft 5 in Weight 167 lb 6 oz BMI 27.8 BP 118/62 Blood Pressure Location Lt brachial Position Sitting Pulse 70 Pulse Source Pulse Oximeter Temp 98.2 F Temp Source Oral Pulse Oximetry (%) 97 Oxygen Delivery Method Room Air Intake Visit Reasons: EP-cough Patient Tobacco Use Status: Current everyday Tobacco user Millwright Apprentice Required: No Is last menstrual period known: Yes Last menstrual period: 03/21/25 Post menopausal: No Patient : No Allergies gold sodium thiomalate Adverse Reaction (Severe, Verified 04/15/25 07:58) Rash adhesive Adverse Reaction (Verified 04/15/25 07:58) Redness of Skin Do you need a note to return to daycare/school/sports/work: Yes HPI HPI Comments History of Present Illness Details This is a 45-year-old female with a past medical history of hypo thyroidism presenting for evaluation of cold symptoms that she has had for the past 1 week. Patient reports initially having a sore throat which evolved into sneezing, runny nose, cough and ear fullness over the past 5 days. Patient denies having any fevers or chills. Patient states that she was tested for COVID, influenza and RSV by her primary care physician yesterday, was negative and therefore a prescription for Augmentin was provided. Patient started her antibiotic therapy last night. Patient reports having a nonproductive cough which is bothersome during the day. She denies having any chest pain or overt shortness for breath. 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 [facility] Medical History (Updated 04/15/25 @ 08:31 by Riana Squires PA-C) Thrombocytopenia Smoker Hypothyroidism Mild recurrent major depression Physical exam Foot pain Surgical History History of colonoscopy History of esophagogastroduodenoscopy (EGD) History of tonsillectomy Family History Father No problems noted. Mother Diabetes Hypertension Stroke Heart attack Interstitial lung disease Sister Hypothyroidism Maternal Uncle Lung cancer Maternal Aunt Sarcoidosis of lung Social History Housing: House Alcohol intake: current Alcohol intake frequency: holidays/special occasions only Alcohol type: wine Patient Tobacco Use Status: Current everyday Tobacco user Tobacco use type: Cigarette Cigarette Packs Per Day: 0.5 Cigarettes Per Day: 10.0 Years Smoked: 25 e-Cigarette/Vaping Use: Never Used Second Hand Smoke Exposure: No Patient : No service: No Current occupational status: employed Current occupational exposures/hazards: No Cognitive needs: No Hearing needs: No Vision needs: Yes Female Reproductive History Menstrual Date of last menstrual period: 03/21/25 Review of Systems Const All systems reviewed & are unremarkable except as noted in HPI and below Reports as per HPI, Denies body aches, Denies chills, Reports fatigue and Denies fever(s) Eyes Reports no additional complaints ENT Denies dizziness, Reports otalgia ( fullness bilaterally), Denies hoarseness, Reports nasal congestion, Reports nasal discharge, Denies sinus pain, Reports sore throat and Denies throat swelling Card Reports no additional complaints and Denies dyspnea Resp Reports cough, Denies hemoptysis, Denies dyspnea and Denies wheezing GI Reports no additional complaints Reports no additional complaints Musc Reports no additional complaints Skin/Breast Reports system reviewed and no additional complaints, except as documented Neuro Reports no additional complaints and Denies dizziness Psych Reports no additional complaints Endo Reports no additional complaints and Reports fatigue Jim/Lymph Reports no additional complaints Aller/Immun Reports no additional complaints, Denies throat swelling and Denies wheezing Physical Exam Vital Signs: Last Vital Signs Temp 98.2 F 04/15/25 07:52 Pulse 70 04/15/25 07:52 BP 118/62 04/15/25 07:52 Pulse Ox 97 04/15/25 07:52 Oxygen Delivery Method Room Air 04/15/25 07:52 BMI result Body Mass Index 27.8 Patient is afebrile and is not hypoxic. Const General: cooperative, comfortable, no acute distress, well developed, awake and Physically active; No ill appearing Nutritional Appearance: well nourished Orientation/consciousness: patient oriented x3 Limitations: no limitations HEENT Head: Yes normal to inspection and Yes normocephalic Ears: hearing grossly normal bilaterally, external ears normal, TM's normal bilaterally and EAC's normal General nose exam: Normal external nose present Face and sinus: Yes normal facial exam and Yes sinuses nontender Mouth: Normal oral and palatal mucosa present, oropharynx normal and moist mucous membranes Throat: Yes posterior oropharynx normal and No postnasal drainage Eyes General: appearance normal, both eyes and all related structures Neck Lymphatic: no lymphadenopathy noted Resp Effort & Inspection: no audible wheezes, Actively coughing, not labored, no nasal flaring and not tachypneic Auscultation: clear to auscultation bilaterally Cardio Rate: regular rate Rhythm: regular rhythm Skin General skin exam: no rashes or lesions noted Neuro General: patient oriented x3 Psych Appearance: grossly normal Mental Status: mental status grossly normal Insight: Good insight present (Psych) Judgement: Good judgement present (Psych) Assessment & Plan Assessment & Plan (1) Acute upper respiratory infection: Comment: Patient is well-appearing. Results of her viral panel are reviewed and are negative. There is no indication for imaging at this time. Patient will continue with the antibiotic therapy as previously prescribed by her primary care physician. Code(s): J06.9 - Acute upper respiratory infection, unspecified Plan: Continue previously prescribed antibiotic therapy and obtain Mucinex to be taken daily with increased clear fluids. Follow up with PCP only as needed. Coding Level of Care Code Est Pt Level 3 (25458) Diagnoses Acute upper respiratory infection J06.9 Time Spent (min) 20
== END 2025-04-15 08:26 | disposition home or self-care (01) ==
PROVIDERS: PCP Internal Medicine; Visit Provider Physician Assistant
DX: J06.9 Acute upper respiratory infection, unspecified (principal)

== ENCOUNTER → 2025-04-15 07:19 | Outpatient (BNVA) | payer OTHER, SELFPAY | PROVIDERS: PCP Internal Medicine; Visit Provider Physician Assistant | DX: J06.9 Acute upper respiratory infection, unspecified (principal); E03.9 Hypothyroidism, unspecified | CPT/HCPCS: 99212 ==

== ENCOUNTER 2025-06-07 07:40 | Outpatient (AMB) | payer OTHER, SELFPAY ==
--- NOTE | 2025-06-07 07:42 | MHC.OFFVIS ---
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 Complaining of irregular menstrual cycles over the last 1.5 years. The patient was prescribed triphasic control pills continuously Last Pap/HPV? Last Mammogram was in 02/01 [facility] 1 Last colonoscopy was in 10/01 [facility] Medical History Thrombocytopenia Smoker Hypothyroidism Mild recurrent major depression Physical exam Foot pain Surgical History History of colonoscopy History of esophagogastroduodenoscopy (EGD) History of tonsillectomy Family History Father No problems noted. Mother Diabetes Hypertension Stroke Heart attack Interstitial lung disease Sister Hypothyroidism Maternal Uncle Lung cancer Maternal Aunt Sarcoidosis of lung Social History Housing: House Alcohol intake: current Alcohol intake frequency: holidays/special occasions only Alcohol type: wine Patient Tobacco Use Status: Current everyday Tobacco user Tobacco use type: Cigarette Cigarette Packs Per Day: 0.5 Cigarettes Per Day: 10.0 Years Smoked: 25 e-Cigarette/Vaping Use: Never Used Second Hand Smoke Exposure: No service: No Current occupational status: employed Current occupational exposures/hazards: No Cognitive needs: No Hearing needs: No Vision needs: Yes Female Reproductive History Menstrual control method: pills Total pregnancies: 0 Review of Systems Const All systems reviewed & are unremarkable except as noted in HPI and below Card Reports as per HPI Resp Reports as per HPI GI Reports as per HPI and Reports no additional complaints Reports as per HPI Physical Exam Vital Signs: BMI result Body Mass Index 28.5 Const General: cooperative, healthy appearing and comfortable Chest Chest palpation & inspection: normal inspection of the chest and normal palpation of entire chest wall Breast/axilla inspection: normal inspection of the breasts and normal inspection of the axillae Breast/axilla palpation: normal palpation of the breasts, normal palpation of the axillae and no axillary lymphadenopathy Resp Effort & Inspection: normal respiratory effort Auscultation: clear to auscultation bilaterally Percussion: percussion normal Cardio Palpation: normal PMI Rate: regular rate Rhythm: regular rhythm Heart sounds: no murmurs and no rubs Peripheral pulses: Peripheral pulses 2+ throughout GI Inspection: Yes normal to inspection Palpation (GI): Soft to palpation, nontender, no guarding, not rigid and No hepatosplenomegaly present Percussion: Yes normal to percussion Auscultation: normal bowel sounds Rectal Exam - Female: deferred General: Yes bladder normal to palpation External Female Exam: No lesion Speculum Exam - Vagina: normal appearance of the vagina, normal palpation, normal vaginal discharge and not erythematous Speculum Exam - Cervix: normal appearance of the cervix and normal palpation Bimanual exam- vagina & uterus: normal bimanual exam, normal palpation, uterine size normal, bladder normal to palpation, consistency normal and normal palpation Bimanual Exam- Adnexa, other: normal adnexae, no masses and no tenderness Results AMB Test Urine AMB Test Urine Negative Last Edit by Clarissa Alcazar CMA on 06/07/25 07:56 Assessment & Plan Assessment & Plan (1) Well woman exam: Code(s): Z01.419 - Encounter for gynecological examination (general) (routine) without abnormal findings Category: Medical Plan: Cotesting done. Instructions given the patient to schedule next screening Mammogram in 01/31 Counseled the patient about the recommended dietary allowance of 1000 mg of Calcium & 600 IU of vitamin D. The patient was instructed to perform monthly self-breast exams and to schedule an annual exam in a year; All questions answered and the patient verbalized understanding. Instructed the patient to schedule annual exam in a year (2) Abnormal uterine bleeding (AUB): Code(s): N93.9 - Abnormal uterine and vaginal bleeding, unspecified Category: Medical Plan: Instructions given the patient to discontinue triphasic control pills. Co testing done, GC and chlamydia taken CBC, TSH, HCG, FSH/LH and pelvic ultrasound ordered. Discussed with the patient the different causes of abnormal bleeding including thyroid disorders, uterine and ovarian pathology, endometrial hyperplasia, carcinoma and other potential causes. Discussed with the patient the work up including CBC (to r/o anemia), TSH, FSH/LH, pelvic Ultrasound, endometrial biopsy to r/o endometrial pathology. All questions answered and the patient verbalized understanding. Instructed the patient to schedule an appointment for an endometrial biopsy in 2 weeks. Orders: Orders AMB HCG Urine Test Today Z32.02 - Encounter for test, result negative HCG Quantitative Today N93.9 - Abnormal uterine and vaginal bleeding, unspecified TSH reflex Free T4 Today N93.9 - Abnormal uterine and vaginal bleeding, unspecified Lutenizing Hormone Today N93.9 - Abnormal uterine and vaginal bleeding, unspecified Complete Blood Count no Diff Today N93.9 - Abnormal uterine and vaginal bleeding, unspecified US pelvic and transvaginal Today N93.9 - Abnormal uterine and vaginal bleeding, unspecified Pap Smear Today N93.9 - Abnormal uterine and vaginal bleeding, unspecified, Z01.419 - Encounter for gynecological examination (general) (routine) without abnormal findings HPV High risk Today N93.9 - Abnormal uterine and vaginal bleeding, unspecified, Z01.419 - Encounter for gynecological examination (general) (routine) without abnormal findings CT NG by PCR Vag/Cerv Today N93.9 - Abnormal uterine and vaginal bleeding, unspecified, Z01.419 - Encounter for gynecological examination (general) (routine) without abnormal findings Follicle Stimulating Hormone Today N93.9 - Abnormal uterine and vaginal bleeding, unspecified Coding Level of Care Code New Pt Level 3 (16973) New Pt Prev Care 40-64y(41210) Diagnoses Well woman exam Z01.419 Abnormal uterine bleeding (AUB) N93.9
[2025-06-07 07:46] VITALS: BMI 28.5
--- OUTSIDE RECORDS SUMMARY | 2025-06-07 07:47 | XMS_ITS | Patient Health Record ---
[facility] Address [address] [place] [address] Care Team Providers Care Director Of Health Education Name Role Phone Sudepe KINNEY, Jess Primary Care Provider Unavail able Kenia John Unavailable [phone] Allergies Allergen (clinical drug ingredient) Drug/Non Drug Allergy documented on EMR Reaction Allergy Type Onset Date Status magnesium sulfate Epsom Salt red spots,itchy Drug Allergy Active Reason For Referral No Information Medications Medication SIG (Take, Route, Frequency, Duration) Notes Start Date End Date Status Multivitamin Adult A ctive Malathion Active Estarylla 0.25-35 MG-MCG 1 tablet Orally Once a day; Duration: 28 day(s) Active Work Note . . [...] Problem Status W/U Status Risk Notes Problem Acquired hammer toe of right foot ([id number]) Hammer toe of right foot (M20.41) Active confirmed Problem Non-pressure ulcer of right lower extremity, limited to breakdown of skin (L97.911) Active confirmed Plan Of Treatment No Information Insurance Providers Payer Name Payer Address Payer Phone Subscriber Number Group Number Insured Name Patient Relationship to Insured Coverage Start Date Coverage End Date [facility] [address] [place] [address] [id number] Arlin Ruiz Self - patient is the insured Medical (General) History Medical History History ICD Code depression Surgical History Surgery Date(Month/Year) wisdom teeth extraction Tooth extraction 05/2021
--- OUTSIDE RECORDS SUMMARY | 2025-06-07 07:47 | XMS_ITS | Patient Health Record ---
Author Organization [facility] Address [address] [place] [address] Care Team Providers Care Lens Cleaner Name Role Phone Jorge Staples [phone] Reason For Referral No Information Social History [...] Insured Coverage Start Date Coverage End Date [facility] [address] [place], [place] [id number] [phone] [id number] Arlin Ruiz Self - patient is the insured 9
== END 2025-06-07 08:25 | disposition home or self-care (01) ==
LOC: HO.HWS 07:40
PROVIDERS: Visit Provider Obstetrics & Gynecology
DX: Z01.419 Encounter for gynecological examination (general) (routine) without abnormal findings (principal); N93.9 Abnormal uterine and vaginal bleeding, unspecified; Z32.02 Encounter for pregnancy test, result negative
CPT/HCPCS: 99203; 99386; 99459

== ENCOUNTER 2025-06-07 07:40 | Outpatient (REF) | payer OTHER, SELFPAY ==
[2025-06-07 16:49] LABS: CT PCR NOT DETECTED (Not Detect.); NG PCR NOT DETECTED (Not Detect.)
== END 2025-06-07 07:41 | disposition home or self-care (01) ==
LOC: HO.LNP 07:40
PROVIDERS: Visit Provider Obstetrics & Gynecology
DX: Z01.419 Encounter for gynecological examination (general) (routine) without abnormal findings (principal); N93.9 Abnormal uterine and vaginal bleeding, unspecified; Z20.2 Contact with and (suspected) exposure to infections with a predominantly sexual mode of transmission
CPT/HCPCS: 81025; 87491; 87591; 87626; 88175; 99202

== ENCOUNTER 2025-06-18 07:00 | Outpatient (REF) | payer OTHER, SELFPAY ==
--- OUTSIDE RECORDS SUMMARY | 2025-06-18 07:03 | XMS_ITS | Patient Health Record ---
Author Organization [facility] Address [address] [place] [address] Care Team Providers Care Feed Adviser Name Role Phone Sudeep KINNEY, Jess Primary Care Provider Unavail able Kenia John Unavailable [phone] Allergies Allergen (clinical drug ingredient) Drug/Non Drug [...] Problem Acquired hammer toe of right foot ([id number] 105) Hammer toe of right foot (M20.41) Active confirmed Problem Non-pressure ulcer of right lower extremity, limited to breakdown of skin (L97.911) Active confirmed Plan Of Treatment No Information Insurance Providers Payer Name Payer Address Payer Phone Subscriber Number Group Number Insured Name Patient Relationship to Insured Coverage Start Date Coverage End Date [facility] [address] [place] [address] [id number] Arlin Ruiz Self - patient is the insured Medical (General) History Medical History History ICD Code depression Surgical History Surgery Date(Month/Year) wisdom teeth extraction Tooth extraction 05/2021
[2025-06-18 08:18] LABS: Hematocrit 39.9 % (37.0-47.0); Hemoglobin 13.0 g/dl (12.0-16.0); Mean Corpuscular HGB Conc 32.6 g/dl (31.0-35.0); Mean Corpuscular Hemoglobin 30.5 pg (27.0-33.0); Mean Corpuscular Volume 93.7 fL (80.0-98.0); NRBC Abs Auto 0.000 X10*3/uL (0.0-0.012); NRBC Pct Auto 0.0 /100WBC (0.0-0.2); Platelet Count 226 X10*3/uL (160-400); Red Blood Count 4.26 X10*6/uL (4.20-5.50); White Blood Count 6.6 X10*3/uL (4.8-10.8)
[2025-06-20 05:58] LABS: Follicle Stimulating Hormone 20.5 mIU/mL
== END 2025-06-18 07:01 | disposition home or self-care (01) ==
LOC: HO.LAB 07:00
PROVIDERS: PCP Internal Medicine; Visit Provider Obstetrics & Gynecology
DX: N93.9 Abnormal uterine and vaginal bleeding, unspecified (principal)
CPT/HCPCS: 36415; 83001; 83002; 84443; 84702; 85027

== ENCOUNTER 2025-06-26 01:45 | Emergency (ER) | payer OTHER, SELFPAY ==
--- NOTE | 2025-06-26 | ECG_ITS ---
Test Reason : CP Blood Pressure : */* mmHG Vent. Rate : 80 BPM Atrial Rate : 80 BPM P-R Int : 138 ms QRS Dur : 68 ms QT Int : 362 ms P-R-T Axes : 8 9 47 degrees QTcB Int : 417 ms Normal sinus rhythm Normal ECG No previous ECGs available Referred By: Generic ED Physician Electronically Signed By: Eduar Soliman
--- NOTE | ~2025-06-26 | XR_ITS ---
CLINICAL HISTORY: chest pain 2 view chest x-ray Comparison: None provided Findings: No consolidation or effusion. Heart size is normal. No acute fracture. IMPRESSION: 1. No acute findings. This document has been electronically signed by: Harris Mckenzie MD on 06/26/2025 03:52:00
[2025-06-26 02:00] VITALS: BP 123/70; PULSE 86; RESP 16; TEMP 36.6; O2SAT 98; BMI 63.0
[2025-06-26 03:45] LABS: MANUAL DIFF FLAG NO
[2025-06-26 03:46] LABS: Hematocrit 37.3 % (37.0-47.0); Hemoglobin 12.6 g/dl (12.0-16.0); Imm Gran Abs Auto 0.02 X10*3/uL (0.00-0.03); Imm Gran Pct Auto 0.3 % (0.0-0.4); Lymphocytes Absolute Auto 1.7 X10*3/uL (1.2-4.9); Mean Corpuscular HGB Conc 33.8 g/dl (31.0-35.0); Mean Corpuscular Hemoglobin 30.9 pg (27.0-33.0); Mean Corpuscular Volume 91.4 fL (80.0-98.0); NRBC Abs Auto 0.000 X10*3/uL (0.0-0.012); NRBC Pct Auto 0.0 /100WBC (0.0-0.2); Platelet Count 200 X10*3/uL (160-400); Red Blood Count 4.08 X10*6/uL (4.20-5.50); White Blood Count 6.3 X10*3/uL (4.8-10.8)
[2025-06-26 03:59] LABS: Alanine Aminotransferase 58 U/L (0-31); Albumin Level 4.2 g/dL (3.5-5.0); Alkaline Phosphatase 83 U/L (39-117); Anion Gap 13 (12-20); Aspartate Amino Transferase 34 U/L (5-31); Blood Urea Nitrogen 13 mg/dL (9-16); Calcium 8.7 mg/dL (8.4-10.2); Carbon Dioxide 19 mmol/L (22-29); Chloride 111 mmol/L (96-108); Creatinine Clr Calc Pharmacy 182.2; Estimated Glomerular Filt Rate > 60; Potassium 4.5 mmol/L (3.3-5.1); Sodium 138 mmol/L (135-145); Total Protein 6.7 g/dL (6.5-8.0)
[2025-06-26 04:08] LABS: NT Pro B Type Natriuretic Pept 52.2 pg/mL (<300); Troponin-I High Sensitivity < 2.7 ng/L (<3.5-17.0)
[2025-06-26 05:50] VITALS: BP 133/85; PULSE 78; RESP 18; TEMP 36.4; O2SAT 98
--- NOTE | 2025-06-26 06:07 | ED.CHESTPAIN ---
HPI - Chest Pain General Chief Complaint: Chest Pain Stated Complaint: sharp pain in chest for 3 days Time Seen by Provider: 06/26/25 06:07 Source: patient Mode of arrival: ambulatory Limitations: no limitations History of Present Illness ED Provider: HPI narrative: 45-year-old woman presenting with left chest wall/intercostal pain wrapping around underneath her left breast without rashes, without pleurisy, she feels like he might have coincided with the fact that she has stopped taking hormonal therapy for DUB, no fevers or chills no nausea no vomiting. Related Data Home Medications ?Medication ?Instructions ?Recorded ?Confirmed [id number] 18 1 tab PO DAILY 12/20/21 01/13/25 mg-FA 400 mcg-vit K 25 mcg tablet (One-A-Day Women's Complete(with vit K)) norgestimate-ethinyl estradiol 1 tab PO DAILY 12/20/21 01/13/25 0.18mg/0.215mg/0.25mg-0.035mg(28)tablet (Tri-Estarylla) Previous Rx's ?Medication ?Instructions ?Recorded cetirizine 10 mg tablet (All Day 10 mg PO DAILY PRN allergy 12/30/24 Allergy (cetirizine)) symptoms 90 days #90 tabs melatonin 10 mg capsule 10 mg PO BEDTIME PRN Insomnia 90 01/09/25 days #90 caps levothyroxine 112 mcg tablet 112 mcg PO DAILY 90 days #90 tabs 01/26/25 prednisone 20 mg tablet 20 mg PO DAILY 5 days #5 tabs 06/26/25 Allergies Allergy/AdvReac Type Severity Reaction Status Date / Time gold sodium thiomalate AdvReac Severe Rash Verified 06/26/25 02:05 adhesive AdvReac Redness of Verified 06/26/25 02:05 Skin Review of Systems Constitutional: Constitutional: Reports as per HPI [facility] Past Medical History Medical History Thrombocytopenia Smoker Hypothyroidism Mild recurrent major depression Physical exam Foot pain Surgical History History of colonoscopy History of esophagogastroduodenoscopy (EGD) History of tonsillectomy Family History Family History Father No problems noted. Mother Diabetes Hypertension Stroke Heart attack Interstitial lung disease Sister Hypothyroidism Maternal Uncle Lung cancer Maternal Aunt Sarcoidosis of lung Social History Social History Housing: House Alcohol intake: current Alcohol intake frequency: holidays/special occasions only Alcohol type: wine Patient Tobacco Use Status: Current everyday Tobacco user Tobacco use type: Cigarette Cigarette Packs Per Day: 0.5 Cigarettes Per Day: 10.0 Years Smoked: 25 Smoked in Last 30 Days: No e-Cigarette/Vaping Use: Never Used Second Hand Smoke Exposure: No Advance Directives: No Advance Directives Information Provided: Yes service: No Current occupational status: employed Current occupational exposures/hazards: No Cognitive needs: No Hearing needs: No Vision needs: Yes Physical Exam Exam: Exam: General: ?Appears of stated age ? ?PERRLA, EOMI, MMM, ? Neck: Supple, no LAD ? ?CV: RRR, no obvious murmurs appreciated, tenderness along intercostal ribs 4th and 5th, no redness of the breast tissue or nipple d/c ? ?Resp: ?No wheezing rales rhonchi no stridor moving air well ? Abd: ?Bowel sounds are present, no tenderness no rebound no rigidity ? ?MSK: FROM, strength 5/5 all extremities ? Skin: Warm, dry, intact, no rashes ? ?Neuro: ?Alert and oriented x3, moving upper and lower extremities symmetrically, no obvious facial asymmetry noted, cranial nerves 2-12 intact Vital Signs: Vital Signs: Last Vital Signs Temp 97.6 F 06/26/25 05:50 Pulse 78 06/26/25 05:50 Resp 18 06/26/25 05:50 BP 133/85 06/26/25 05:50 Pulse Ox 98 06/26/25 05:50 O2 Del Method Room Air 06/26/25 05:50 BMI result Body Mass Index 63.0 Medical Decision Making Medical Decision Making MDM Narrative: 6:38 AM 06/26/2025 (Dr. Margarito Bennett): PERC negative, physical examination without any soft tissue inflammation there was no evidence for shingles, no evidence for cellulitis, chest x-ray without pneumonia, pneumothorax ECG cardiac enzymes unremarkable, we will start on a short dose of steroids see how she responds, otherwise in follow up with the PCP Differential Diagnosis Differential Diagnoses: The differential diagnosis associated with the presentation includes (PE, ACS, pericarditis, myocarditis, costochondritis, pneumonia) Admission/Observation Consideration of admission/observation: Escalation of care including admission/observation considered Lab Data MDM Lab Attestation statement: I reviewed the patient's lab results. 06/26/25 03:39 06/26/25 03:39 Labs: Lab Results 06/26/25 Range/Units 03:39 WBC 6.3 (4.8-10.8) X10*3/uL RBC 4.08 L (4.20-5.50) X10*6/uL Hgb 12.6 (12.0-16.0) g/dl Hct 37.3 (37.0-47.0) % MCV 91.4 (80.0-98.0) fL MCH 30.9 (27.0-33.0) pg MCHC 33.8 (31.0-35.0) g/dl RDW 12.4 (11.0-16.0) % Plt Count 200 (160-400) X10*3/uL MPV 10.7 (9.4-12.3) fL Immature Gran % (Auto) 0.3 (0.0-0.4) % Neut % (Auto) 58.4 (45-73) % Lymph % (Auto) 27.2 (20-40) % Donley % (Auto) 8.8 (2-11) % Eos % (Auto) 4.5 H (0-4) % Baso % (Auto) 0.8 (0-2) % Lymph # (Auto) 1.7 (1.2-4.9) X10*3/uL Donley # (Auto) 0.6 (0.1-1.2) X10*3/uL Eos # (Auto) 0.3 (0.0-0.4) X10*3/uL Baso # (Auto) 0.1 (0.0-0.2) X10*3/uL Abs Immat Gran (auto) 0.02 (0.00-0.03) X10*3/uL Absolute Neuts (auto) 3.7 (2.0-8.3) x10*3/uL Absolute Nucleated RBC 0.000 (0.0-0.012) X10*3/uL Nucleated RBC % (auto) 0.0 (0.0-0.2) /100WBC Sodium 138 (135-145) mmol/L Potassium 4.5 (3.3-5.1) mmol/L Chloride 111 H (96-108) mmol/L Carbon Dioxide 19 L (22-29) mmol/L Anion Gap 13 (12-20) BUN 13 (9-16) mg/dL Creatinine 0.62 (0.5-1.4) mg/dL Estim Creat Clear Calc 182.2 Estimated GFR > 60 Random Glucose 105 (60-115) mg/dL Calcium 8.7 (8.4-10.2) mg/dL Total Bilirubin 0.3 (0.0-1.0) mg/dL AST 34 H (5-31) U/L ALT 58 H (0-31) U/L Alkaline Phosphatase 83 (39-117) U/L Troponin I High Sens < 2.7 (<3.5-17.0) ng/L NT-Pro-B Natriuret Pep 52.2 (<300) pg/mL Total Protein 6.7 (6.5-8.0) g/dL Albumin 4.2 (3.5-5.0) g/dL Independent Interpretation I performed an independent interpretation of an: EKG (80 beats per minute otherwise normal ECG without dysrhythmia, AV sue blocks or ST-T changes to suspect underlying ACS, my independent interpretation) and Plain X-Ray (My independent chest xray interpretation: Lungs: Lungs are clear bilaterally without evidence of focal consolidation, pleural effusion, or pneumothorax. Cardiac silhouette is unremarkable, no obvious mediastinal widening, no obvious bony abnormalities such as fractures. Impression: Normal chest X-r) Radiology Impression Discussion of test interpretation with radiology: I have reviewed the radiologist's reading. (Negative) Prescription Management I considered prescription management with: Pain Medication Discharge Plan Discharge Clinical Impression: Chest pain, precordial Patient Disposition: Home, Self-Care Additional Instructions: As discussed I am reassured by physical examination there was no evidence of any rashes or infection on exam, your vital signs are reassuring, you did have blood work, cardiac enzymes, EKG and a chest x-ray without abnormalities, I suspect this may be inflammation of the ribcage or inflammation of the nerve in between her ribs, I gave you a 1st dose of steroids in the ER, continue steroids starting tomorrow, follow up with the PCP, spiking fevers, worsening chest pain no shortness of breath or any other concerns come back to the ER for re-evaluation Prescriptions: New prednisone 20 mg tablet 20 mg PO DAILY 5 Days Qty: 5 0RF No Action cetirizine [All Day Allergy (cetirizine)] 10 mg tablet 10 mg PO DAILY PRN (Reason: allergy symptoms) 90 Days Qty: 90 5RF melatonin 10 mg capsule 10 mg PO BEDTIME PRN (Reason: Insomnia) 90 Days Qty: 90 1RF levothyroxine 112 mcg tablet 112 mcg PO DAILY 90 Days Qty: 90 1RF norgestimate-ethinyl estradiol [Tri-Estarylla] 0.18/0.215/0.25 mg-35 mcg (28) tablet 1 tab PO DAILY One-A-Day Women's Complete(vK) 18 mg-400 mcg- 25 mcg tablet 1 tab PO DAILY Print Language: Arabic
--- NOTE | 2025-06-26 06:11 | PC.NURSE ---
pt in bed sitting up, at bedside, reports pain in chest described as tightness x3 days. Pt having a hard time sleeping, woke up at about 1 am and felt she needed to come in. denies other symptoms, denies radiating pain. at times she has pain in her lower abdomen, reports abnormal periods due to control, not regular BM for many years, urine output normal fr pt. v/s WNL.
[2025-06-26 07:04] VITALS: BP 133/85; PULSE 78; RESP 18; TEMP 36.4; O2SAT 98
== END 2025-06-26 07:15 | disposition home or self-care (01) ==
PROVIDERS: Emergency Provider Emergency Medicine; PCP Internal Medicine
DX: R07.2 Precordial pain (principal); F17.200 Nicotine dependence, unspecified, uncomplicated; Z71.6 Tobacco abuse counseling
CPT/HCPCS: 36415; 71046; 80053; 83880; 84484; 85025; 93005; 99283; 99285; J8540

== ENCOUNTER → 2025-06-26 01:56 | Outpatient (BNV) | payer OTHER, SELFPAY | PROVIDERS: Emergency Provider Emergency Medicine; PCP Internal Medicine; Visit Provider Internal Medicine Cardiovascular Disease | DX: R07.2 Precordial pain (principal) | CPT/HCPCS: 93010 ==

== ENCOUNTER → 2025-06-26 02:50 | Outpatient (BNV) | payer OTHER, SELFPAY | PROVIDERS: PCP Internal Medicine; Visit Provider Specialist | DX: R07.9 Chest pain, unspecified (principal) | CPT/HCPCS: 71046 ==

== ENCOUNTER 2025-07-04 12:49 | Outpatient (AMB) | payer OTHER, SELFPAY ==
--- NOTE | 2025-07-04 12:50 | A.OFFVIS_ITS ---
Intake Visit Reasons: Breast follow up Intake Note: pt c/o left breast pain Food And Beverage Director: Food And Beverage Director Present (Stephie) Accompanied by: Spouse Allergies gold sodium thiomalate Adverse Reaction (Severe, Verified 07/04/25 12:50) Rash adhesive Adverse Reaction (Verified 07/04/25 12:50) Redness of Skin HPI Comments Details: Presenting complaining of left sided breast pain over the last few weeks no associated nipple discharge or lump. No history of shingles or skin rashes. Nor upper respiratory tract infection no shortness of breath no fever or chills. The patient went to the emergency room where EKG chest x-ray was done were negative and the patient was referred to cardiology for further workup. Last screening mammogram in 01/30 was BI-RADS 1 PFSH Medical History Thrombocytopenia Smoker Hypothyroidism Mild recurrent major depression Physical exam Foot pain Surgical History History of colonoscopy History of esophagogastroduodenoscopy (EGD) History of tonsillectomy Family History Father No problems noted. Mother Diabetes Hypertension Stroke Heart attack Interstitial lung disease Sister Hypothyroidism Maternal Uncle Lung cancer Maternal Aunt Sarcoidosis of lung Social History Housing: House Alcohol intake: current Alcohol intake frequency: holidays/special occasions only Alcohol type: wine Patient Tobacco Use Status: Current everyday Tobacco user Tobacco use type: Cigarette Cigarette Packs Per Day: 0.5 Cigarettes Per Day: 10.0 Years Smoked: 25 e-Cigarette/Vaping Use: Never Used Second Hand Smoke Exposure: No service: No Current occupational status: employed Current occupational exposures/hazards: No Cognitive needs: No Hearing needs: No Vision needs: Yes Physical Exam Chest Chest palpation & inspection: normal inspection of the chest Breast/axilla inspection: normal inspection of the breasts Breast/axilla palpation: palpation of the breasts abnormal (Left breast tender lower inner quadrant no masses fact, right breast within) Assessment & Plan Assessment & Plan (1) Breast pain, left: Comment: Lower inner quadrant Code(s): N64.4 - Mastodynia Category: Medical Plan: Discussed with the patient differential diagnosis of her left breast pain including muscle pain, costochondritis, breast pathology and others. Will order left breast ultrasound and diagnostic mammogram and referred the patient has general surgery. Instructions given the patient to call or go to emergency room in case of worsening of her pain. All questions answered, the patient verbalized understanding Orders: Orders MM tomosynthesis diagnostic LT Today N64.4 - Mastodynia US breast LT limited Today N64.4 - Mastodynia Referrals General Surgery Referral N64.4 - Mastodynia Coding Level of Care Code Est Pt Level 3 (91562) Diagnoses Breast pain, left N64.4
--- OUTSIDE RECORDS SUMMARY | 2025-07-04 16:13 | XMS_ITS | Patient Health Record ---
Author Organization [facility] Address [address] [place] [address] Care Team Providers Care Media Technician Name Role Phone Jorge Staples [phone] Reason For Referral No Information Social History [...] Insured Coverage Start Date Coverage End Date [facility] [address] [place], [place] [id number] [phone] [id number] Arlin Ruiz Self - patient is the insured 9
--- OUTSIDE RECORDS SUMMARY | 2025-07-04 16:13 | XMS_ITS | Patient Health Record ---
Author Organization [facility] Address [address] [place] [address] Care Team Providers Care Director Of Public Safety Name Role Phone Sudeep KINNEY, Jess Primary Care Provider Unavail able Kenia John Unavailable [phone] Allergies Allergen (clinical drug ingredient) Drug/Non Drug [...] Problem Acquired hammer toe of right foot (3566470677032 105) Hammer toe of right foot (M20.41) Active confirmed Problem Non-pressure ulcer of right lower extremity, limited to breakdown of skin (L97.911) Active confirmed Plan Of Treatment No Information Insurance Providers Payer Name Payer Address Payer Phone Subscriber Number Group Number Insured Name Patient Relationship to Insured Coverage Start Date Coverage End Date [facility] [address] [place] [address] [id number] Arlin Ruiz Self - patient is the insured Medical (General) History Medical History History ICD Code depression Surgical History Surgery Date(Month/Year) wisdom teeth extraction Tooth extraction 05/2021
== END 2025-07-04 14:51 | disposition home or self-care (01) ==
LOC: HO.HWS 12:49
PROVIDERS: PCP Internal Medicine; Visit Provider Obstetrics & Gynecology
DX: N64.4 Mastodynia (principal)
CPT/HCPCS: 99213

== ENCOUNTER → 2025-07-04 12:49 | Outpatient (BNVA) | payer OTHER, SELFPAY | PROVIDERS: PCP Internal Medicine; Visit Provider Obstetrics & Gynecology | DX: N64.4 Mastodynia (principal) | CPT/HCPCS: 99212 ==

== ENCOUNTER 2025-07-06 13:32 | Outpatient (REF) | payer OTHER, SELFPAY | END 2025-07-06 13:33 | disposition home or self-care (01) | LOC: HO.LNP 13:32 | PROVIDERS: PCP Internal Medicine; Visit Provider Obstetrics & Gynecology | DX: N93.9 Abnormal uterine and vaginal bleeding, unspecified (principal) | CPT/HCPCS: 58100; 81025; 88305 ==

== ENCOUNTER 2025-07-06 13:32 | Outpatient (AMB) | payer OTHER, SELFPAY ==
--- NOTE | 2025-07-06 13:46 | A.OFFVIS_ITS ---
Intake Visit Reasons: EMB Allergies gold sodium thiomalate Adverse Reaction (Severe, Verified 07/06/25 13:46) Rash adhesive Adverse Reaction (Verified 07/06/25 13:46) Redness of Skin HPI Comments Details: Presenting for EMB [facility] Medical History Thrombocytopenia Smoker Hypothyroidism Mild recurrent major depression Physical exam Foot pain Surgical History History of colonoscopy History of esophagogastroduodenoscopy (EGD) History of tonsillectomy Family History Father No problems noted. Mother Diabetes Hypertension Stroke Heart attack Interstitial lung disease Sister Hypothyroidism Maternal Uncle Lung cancer Maternal Aunt Sarcoidosis of lung Social History Housing: House Alcohol intake: current Alcohol intake frequency: holidays/special occasions only Alcohol type: wine Patient Tobacco Use Status: Current everyday Tobacco user Tobacco use type: Cigarette Cigarette Packs Per Day: 0.5 Cigarettes Per Day: 10.0 Years Smoked: 25 e-Cigarette/Vaping Use: Never Used Second Hand Smoke Exposure: No service: No Current occupational status: employed Current occupational exposures/hazards: No Cognitive needs: No Hearing needs: No Vision needs: Yes Review of Systems Const All systems reviewed & are unremarkable except as noted in HPI and below Reports as per HPI and Reports no additional complaints GI Reports no additional complaints Reports no additional complaints Office Procedures Endometrial Biopsy Details: The patient was counseled regarding the indication and benefits of endometrial sampling to rule out endometrial pathology including not limited to endometrial hyperplasia or endometrial cancer and others; The alternatives (Either do nothing vs. hysteroscopy D&C) & the risks were discussed with the patient including but not limited: pain, uterine perforation, bleeding, infection, possible injury to bladder, bowel, ureter, possible need for blood transfusion with all its possible risks. The patient verbalized understanding all questions answered and signed consent. Urine test done in the office was negative The patient was placed into the dorsal lithotomy position; a speculum was inserted in the vagina. Using aseptic technique for the procedure, the cervix was cleansed with Betadine. The anterior lip of the cervix was grasped with a single tooth tenaculum. The uterus was sounded to 7 cm with a 4 mm Pipelle was used. Tissues samples were obtained and placed in formalin, in a patient labeled container and sent to the pathology department. At the end of the procedure, there was minimal bleeding noted The patient tolerated the procedure well and was discharged in good condition with the following instructions: Nothing in the vagina until the bleeding stops. No sex until the bleeding stops, to call if any of the following occurs: fever (>100.4), flu-like symptoms, abdominal pain, heavy bleeding, four smelling vaginal discharge. The patient was instructed to schedule a Follow up appointment in 2 weeks to discuss pathology results of the biopsy and treatment options. This note was generated with a voice recognition program. Some errors may have been overlooked during the review of this note. Sometimes these errors may affect the content or meaning of a given sentence. [id number] Biopsy Results AMB Test Urine AMB Test Urine Negative Last Edit by EMILIE Watson on 07/06/25 13:51 Assessment & Plan Assessment & Plan (1) Abnormal uterine bleeding (AUB): Code(s): N93.9 - Abnormal uterine and vaginal bleeding, unspecified Category: Medical Plan: EMB done, see procedure note Orders: Orders AMB HCG Urine Test Today N93.9 - Abnormal uterine and vaginal bleeding, unspecified AMB Endometrial Biopsy Today N93.9 - Abnormal uterine and vaginal bleeding, unspecified Coding Level of Care Code Procedure Only Diagnoses Abnormal uterine bleeding (AUB) N93.9 CPT Codes Endometrial Biopsy - CPT: 44665-[id number] Biopsy ([id number])
--- OUTSIDE RECORDS SUMMARY | 2025-07-06 17:23 | XMS_ITS | Patient Health Record ---
Author Organization [facility] Address [address] [place] [address] Care Team Providers Care Buyer Internship Name Role Phone Jorge Staples [phone] Reason For Referral No Information Social History [...] Insured Coverage Start Date Coverage End Date [facility] [address] [place], [place] [id number] [phone] [id number] Arlin Ruiz Self - patient is the insured 9
--- OUTSIDE RECORDS SUMMARY | 2025-07-06 17:23 | XMS_ITS | Patient Health Record ---
Author Organization [facility] Address [address] [place] [address] Care Team Providers Care Scoop Operator Name Role Phone Sudeep KINNEY, Jess Primary Care Provider Unavail able Kenia John Unavailable [phone] Allergies Allergen (clinical drug ingredient) Drug/Non Drug [...] Problem Acquired hammer toe of right foot ([id number] 105) Hammer toe of right foot (M20.41) Active confirmed Problem Non-pressure ulcer of right lower extremity, limited to breakdown of skin (L97.911) Active confirmed Plan Of Treatment No Information Insurance Providers Payer Name Payer Address Payer Phone Subscriber Number Group Number Insured Name Patient Relationship to Insured Coverage Start Date Coverage End Date [facility] [address] [place] [address] [id number] Arlin Ruiz Self - patient is the insured Medical (General) History Medical History History ICD Code depression Surgical History Surgery Date(Month/Year) wisdom teeth extraction Tooth extraction 05/2021
== END 2025-07-06 14:26 | disposition home or self-care (01) ==
LOC: HO.HWS 13:32
PROVIDERS: PCP Internal Medicine; Visit Provider Obstetrics & Gynecology
DX: N93.9 Abnormal uterine and vaginal bleeding, unspecified (principal); Z32.02 Encounter for pregnancy test, result negative
CPT/HCPCS: 58100

== ENCOUNTER 2025-07-18 16:27 | Outpatient (AMB) | payer OTHER, SELFPAY ==
--- NOTE | 2025-07-18 16:32 | A.OFFPC_ITS ---
Vital Signs 07/18/25 16:35 Height 5 ft 5 in Weight 175 lb 8 oz BMI 29.2 BP 132/90 H Blood Pressure Location Lt brachial Position Sitting Pulse 98 Pulse Source Pulse Oximeter Temp 97.3 F Temp Source Temporal Artery Scan Pulse Oximetry (%) 98 Oxygen Delivery Method Room Air Intake Visit Reasons: thyroid [employer] Required: No Accompanied by: Spouse Allergies gold sodium thiomalate Adverse Reaction (Severe, Verified 07/18/25 16:49) Rash adhesive Adverse Reaction (Verified 07/18/25 16:49) Redness of Skin Medication List - Last Reconciled 07/18/25 by Jess Rodriguez MD cetirizine (All Day Allergy (cetirizine)) 10 mg PO DAILY PRN 90 days levothyroxine 112 mcg PO DAILY 90 days melatonin 10 mg PO BEDTIME PRN 90 days kr-knzdqrr-txn-iron fm-FA-vitK 18 mg-400 mcg- 25 mcg (One-A-Day Women's Complete(with vit K)) 1 tab PO DAILY Tobacco use date assessed: 07/18/25 Dental Screening Dental Screen Date: 07/18/25 Did you have a dental visit in the last 12 months?: Yes Did you have a dental problem in the last 6 months where you did not have access to dental care?: No Was dental information given to patient?: Patient has dentist HPI HPI Comments History of Present Illness Details The patient is a 45-year-old female presenting with a chief complaint of breast pain. She describes the pain as being generalized, starting in the chest and radiating around the area, and notes the area is tender to palpation. The pain is intermittent, occurring at rest, while at work, and even during sleep, causing discomfort when she lies on her back or side. The patient denies any association with food intake. Associated symptoms include occasional abdominal cramping while not on her period. Due to the pain, she presented to [facility] on June 26, where an EKG and a chest x-ray were performed, both of which were normal. A mammogram in January was also negative. The patient's past medical history is significant for hypothyroidism, for which she takes levothyroxine 112 mcg daily. Her other medications include cetirizine as needed for allergies, melatonin for sleep, and a multivitamin. She has known allergies to gold and adhesive. The patient also expressed concerns about her weight and inquired about management options. [facility] Medical History (Updated 07/18/25 @ 20:30 by Jess Rodriguez MD) Thrombocytopenia Smoker Hypothyroidism Mild recurrent major depression Physical exam Foot pain Surgical History History of colonoscopy History of esophagogastroduodenoscopy (EGD) History of tonsillectomy Family History Father No problems noted. Mother Diabetes Hypertension Stroke Heart attack Interstitial lung disease Sister Hypothyroidism Maternal Uncle Lung cancer Maternal Aunt Sarcoidosis of lung Social History Housing: House Alcohol intake: current Alcohol intake frequency: holidays/special occasions only Alcohol type: wine Patient Tobacco Use Status: Former Tobacco user Tobacco use type: Cigarette Cigarette Packs Per Day: 0.5 Cigarettes Per Day: 10.0 Years Smoked: 25 e-Cigarette/Vaping Use: Never Used Second Hand Smoke Exposure: No service: No Current occupational status: employed Current occupational exposures/hazards: No Cognitive needs: No Hearing needs: No Vision needs: Yes Questionnaire PHQ-9 Over the last 2 weeks, how often have you been bothered by any of the following problems? 1. Little interest or pleasure in doing things: not at all 2. Feeling down, depressed, or hopeless: not at all 3. Trouble falling or staying asleep, or sleeping too much: not at all 4. Feeling tired or having little energy: not at all 5. Poor appetite or overeating: not at all 6. Feeling bad about yourself - or that you are a failure or have let yourself or your family down: not at all 7. Trouble concentrating on things, such as reading the newspaper or watching television: not at all 8. Moving or speaking so slowly that other people could have noticed. Or the opposite - being so fidgety or restless that you have been moving around a lot more than usual: not at all 9. Thoughts that you would be better off or of hurting yourself in some way: not at all Total score: 0 Depression Screening Interpretation: Negative Depression Screening Done: Yes 26564 - PHQ-9 Billing: Yes Source: Developed by Drs. Long Bradley, Indy Floyd, Gurjit Luna and colleagues, with an educational jarrod from [employer]. Thrive Questionnaire Date Thrive assessed: 01/06/25 I am a: Patient What is your living situation today?: I have a steady place to live Within the past 12 months, did the food you bought not last and you didn't have the money to get more?: Never true Within the past 12 months, did you worry whether your food would run out before you got money to buy more?: Never true Do you have trouble paying for medicines?: No Do you have trouble getting transportation to medical appointments?: No Do you have trouble paying your heating and electricity bill?: No Do you have trouble taking care of your child, family member or friend?: No Do you have trouble with day-to-day activities such as bathing, preparing meals, shopping, managing finances, etc.?: No Are you currently unemployed and looking for a job?: No Are you interested in more education?: No Please select the resources that you would like help with: None Currently or been in a relationship where the following occur: No concerns reported THRIVE Score: 0 AUDIT C Alcohol Use Questionnaire (AUDIT-C) 1. How often do you have a drink containing alcohol?: 2-3 times a week 2. How many drinks containing alcohol do you have on a typical day when you are drinking?: 1 or 2 3. How often do you have six or more drinks on one occasion?: Never Total Score: 3 Score Reviewed/Action Taken: No JORDYN-7 AMB Questionnaire JORDYN-7 Date JORDYN - 7 assessed: 01/13/25 Feeling nervous, anxious, or on edge: 0 = Not at all Not being able to stop or control worryin = Not at all Worrying too much about different things: 0 = Not at all Trouble relaxin = Not at all Being so restless that it is hard to sit still: 0 = Not at all Becoming easily annoyed or irritable: 0 = Not at all Feeling afraid as if something awful might happen: 0 = Not at all Total JORDYN-7 score (0-4 normal; 5-9 mild; 10-14 moderate; 15-21 severe): 0 Source: Developed by Drs. Long Bradlye, Indy Floyd, Gurjit Luna and colleagues, with an educational jarrod from [employer]. JORDYN-7 Assessment Billing JORDYN-7 Assessment Tool: JORDYN-7 Assessment 10542 Review of Systems Const All systems reviewed & are unremarkable except as noted in HPI and below Card Denies chest pain at rest, Denies chest pain with activity, Denies edema, Denies irregular heart rhythm, Denies claudication, Denies dyspnea, Denies dyspnea on exertion, Denies orthopnea, Denies paroxysmal nocturnal dyspnea and Denies slow heart rate Resp Denies cough, Denies dyspnea and Denies dyspnea on exertion GI Denies abdominal pain, Denies change in bowel habits, Denies excessive flatus, Denies nausea and Denies vomiting Physical exam (Primary Care) Vital Signs: Last Vital Signs Temp 97.3 F 07/18/25 16:35 Pulse 98 07/18/25 16:35 BP 132/90 H 07/18/25 16:35 Pulse Ox 98 07/18/25 16:35 Oxygen Delivery Method Room Air 07/18/25 16:35 BMI result Body Mass Index 29.2 Tobacco/Smoking Status: Tobacco use Status Tobacco use date assessed 07/18/25 07/18/25 16:39 Patient Tobacco Use Status Former Tobacco user 07/18/25 16:39 Tobacco use type Cigarette 07/18/25 16:32 e-Cigarette/Vaping Use Never Used 07/18/25 16:32 PHQ-9: PHQ-9 Score PHQ-9: Total score 0 07/18/25 16:51 Depression Screening Interpretation: Negative Thrive Assessment: Date of Thrive Assessment Date Thrive assessed 01/06/25 07/18/25 16:32 Currently or been in a relationship where the following occur: No concerns reported Resp Effort & Inspection: normal respiratory effort Auscultation: clear to auscultation bilaterally Cardio Jugular venous distension: no JVD Rate: regular rate Rhythm: regular rhythm Heart sounds: S1 normal heart sound present and S2 normal heart sound present Extrem General: Yes full ROM Coding Level of Care Code Est Pt Level 4 (35680) Diagnoses Breast pain, left N64.4 Hypothyroidism E03.9 Transaminitis R74.01 Dyspepsia R10.13 Additional Codes JORDYN-7 Assessment Billing - JORDYN-7 Assessment Tool: JORDYN-7 Assessment 95915 ([id number]) PHQ-9 - 41727 - PHQ-9 Billing: Yes ([id number]) Time Spent (min) 21 Assessment & Plan Assessment & Plan (1) Breast pain, left: Comment: Lower inner quadrant Code(s): N64.4 - Mastodynia Category: Medical (2) Hypothyroidism: Code(s): E03.9 - Hypothyroidism, unspecified Category: Medical (3) Transaminitis: Code(s): R74.01 - Elevation of levels of liver transaminase levels Category: Medical (4) Dyspepsia: Code(s): R10.13 - Epigastric pain Category: Medical Plan Plan 1. Breast Pain The patient reports intermittent, diffuse chest and breast pain which is tender to palpation. Recent EKG and chest x-ray were normal, and heart and lung sounds are normal on exam. The plan is to await the results of the upcoming diagnostic mammogram and ultrasound scheduled for July 27 and August 08, respectively. She will also proceed with her scheduled appointments with a general surgeon and cardiology. 2. Mild Elevation Of Liver Enzymes A mild elevation of liver enzymes was noted incidentally on recent lab work, which may be related to fatty liver. The plan is to repeat the liver function tests in one month. If the levels remain elevated, an ultrasound and further workup will be considered. 3. Weight Management Counseling The patient expressed concern about her weight and a desire to lose weight. Lifestyle modifications were discussed, including intermittent fasting (e.g., eating from 11 AM to 6 PM) and incorporating cardiovascular exercise. The use of GLP-1 agonists was discussed, but not recommended due to potential side effects such as pancreatitis, possible worsening of depression, and rebound weight gain after discontinuation. 4. Hypothyroidism Continue levothyroxine. Monitor TSH. Orders: Orders Liver Panel Today R74.01 - Elevation of levels of liver transaminase levels
[2025-07-18 16:35] VITALS: BP 132/90; PULSE 98; TEMP 36.3; O2SAT 98; BMI 29.2
== END 2025-07-18 17:05 | disposition home or self-care (01) ==
LOC: HO.HMCH 16:28
PROVIDERS: PCP Internal Medicine; Visit Provider Internal Medicine
DX: N64.4 Mastodynia (principal); E03.9 Hypothyroidism, unspecified; R74.01 Elevation of levels of liver transaminase levels; R10.13 Epigastric pain

== ENCOUNTER → 2025-07-18 16:27 | Outpatient (BNVA) | payer OTHER, SELFPAY | PROVIDERS: PCP Internal Medicine; Visit Provider Internal Medicine | DX: N64.4 Mastodynia (principal); E03.9 Hypothyroidism, unspecified; R74.01 Elevation of levels of liver transaminase levels; R10.13 Epigastric pain; Z79.899 Other long term (current) drug therapy | CPT/HCPCS: 96127; 99212 ==

== ENCOUNTER → 2025-07-19 14:58 | Outpatient (BNVA) | payer OTHER, SELFPAY | PROVIDERS: PCP Internal Medicine; Visit Provider Obstetrics & Gynecology | DX: N93.9 Abnormal uterine and vaginal bleeding, unspecified (principal) | CPT/HCPCS: 99212 ==

== ENCOUNTER 2025-07-27 15:34 | Outpatient (REF) | payer OTHER, SELFPAY ==
--- NOTE | ~2025-07-27 | US_ITS ---
EXAMINATION: US PELVIS CLINICAL INFORMATION: Abnormal uterine and vaginal bleeding COMPARISON: None available. TECHNIQUE: Ultrasound of the pelvis is performed using both transabdominal and transvaginal transducers along with Doppler. Transvaginal imaging is performed due to inadequate visualization transabdominally. FINDINGS: Uterus: The uterus is anteverted and measures 7 x 2.6 x 4.4 cm. The double wall endometrial thickness is 0.2 mm. No endometrial fluid or mass. The uterus is smooth in contour and has normal myometrial echogenicity. No visible fibroid. Small nabothian cysts in the cervix. Adnexa: Right ovary is not seen. Left ovary measures 3.1 x 1.3 x 2.1 cm. Normal. No pelvic fluid. US/US pelvic and transvaginal IMPRESSION: Normal-appearing uterus and left ovary. Right ovary not seen. Electronically signed by: Vickie Roblero MD 07/27/2025 04:31 PM [facility]
--- OUTSIDE RECORDS SUMMARY | 2025-07-28 04:08 | XMS_ITS | Patient Health Record ---
[facility] Address [address] [place] [address] Care Team Providers Care Real Estate Analyst Name Role Phone Sudeep KINNEY, Jess Primary Care Provider Unavail able Kenia John Unavailable [phone] Allergies Allergen (clinical drug ingredient) Drug/Non Drug [...] Problem Acquired hammer toe of right foot ([id number] 105) Hammer toe of right foot (M20.41) Active confirmed Problem Non-pressure ulcer of right lower extremity, limited to breakdown of skin (L97.911) Active confirmed Plan Of Treatment No Information Insurance Providers Payer Name Payer Address Payer Phone Subscriber Number Group Number Insured Name Patient Relationship to Insured Coverage Start Date Coverage End Date [facility] [address] [place] [id number] Arlin Ruiz Self - patient is the insured Medical (General) History Medical History History ICD Code depression Surgical History Surgery Date(Month/Year) wisdom teeth extraction Tooth extraction 05/2021
--- OUTSIDE RECORDS SUMMARY | 2025-07-28 04:08 | XMS_ITS | Patient Health Record ---
Author Organization [facility] Address [address] [place] [address] Care Team Providers Care Education Program Manager Name Role Phone Jorge Staples [phone] Reason For Referral No Information Social History [...] Insured Coverage Start Date Coverage End Date [facility] [address] [place], [place] [id number] Arlin Ruiz Self - patient is the insured 9
== END 2025-07-27 15:35 | disposition home or self-care (01) ==
LOC: HO.US 15:34
PROVIDERS: PCP Internal Medicine; Visit Provider Obstetrics & Gynecology
DX: N93.9 Abnormal uterine and vaginal bleeding, unspecified (principal)
CPT/HCPCS: 76830; 76856

== ENCOUNTER → 2025-07-27 15:36 | Outpatient (BNV) | payer OTHER, SELFPAY | PROVIDERS: PCP Internal Medicine; Visit Provider Radiology Diagnostic Radiology | DX: N93.9 Abnormal uterine and vaginal bleeding, unspecified (principal) | CPT/HCPCS: 76830; 76856 ==

== ENCOUNTER 2025-08-02 14:23 | Outpatient (AMB) | payer OTHER, SELFPAY ==
--- NOTE | 2025-08-02 14:47 | A.OFFVIS_ITS ---
Vital Signs 08/02/25 14:49 Height 5 ft 5 in Weight 175 lb BMI 29.1 BP 106/62 Intake Visit Reasons: ultrasound follow up Medical Aide Required: No Information Interpreted: non-clinical & clinical Antique Clocks Repairer: Antique Clocks Repairer Present (Clarissa PHAN) Accompanied by: Spouse Allergies gold sodium thiomalate Adverse Reaction (Severe, Verified 08/02/25 15:00) Rash adhesive Adverse Reaction (Verified 08/02/25 15:00) Redness of Skin HPI Comments Details: Presenting for ultrasound follow-up which showed the following: Uterus: The uterus is anteverted and measures 7 x 2.6 x 4.4 cm. The double wall endometrial thickness is 0.2 mm. No endometrial fluid or mass. The uterus is smooth in contour and has normal myometrial echogenicity. No visible fibroid. Small nabothian cysts in the cervix. Adnexa: Right ovary is not seen. Left ovary measures 3.1 x 1.3 x 2.1 cm. Normal. No pelvic fluid. The patient is on day 4 from her LMP an would like a Mirena IUD inserted [facility] Medical History Thrombocytopenia Smoker Hypothyroidism Mild recurrent major depression Physical exam Foot pain Surgical History History of colonoscopy History of esophagogastroduodenoscopy (EGD) History of tonsillectomy Family History Father No problems noted. Mother Diabetes Hypertension Stroke Heart attack Interstitial lung disease Sister Hypothyroidism Maternal Uncle Lung cancer Maternal Aunt Sarcoidosis of lung Social History Housing: House Alcohol intake: current Alcohol intake frequency: holidays/special occasions only Alcohol type: wine Patient Tobacco Use Status: Former Tobacco user Tobacco use type: Cigarette Cigarette Packs Per Day: 0.5 Cigarettes Per Day: 10.0 Years Smoked: 25 e-Cigarette/Vaping Use: Never Used Second Hand Smoke Exposure: No service: No Current occupational status: employed Current occupational exposures/hazards: No Cognitive needs: No Hearing needs: No Vision needs: Yes Review of Systems Const All systems reviewed & are unremarkable except as noted in HPI and below Reports as per HPI and Reports no additional complaints GI Reports no additional complaints Reports no additional complaints Physical Exam Vital Signs: Last Vital Signs BP 106/62 08/02/25 14:49 BMI result Body Mass Index 29.1 Office Procedures IUD Insert/Removal Details Details: The patient is presenting for Mirena IUD insertion Urine test was done in the office and was negative; All the contraindications were excluded. The following possible complications were discussed with the patient: Intrauterine , Ectopic , Sepsis, Pelvic Infection, Irregular Bleeding and Amenorrhea, Perforation, Expulsion, Ovarian Cysts, Breast Cancer, The following adverse effects were discussed with the patient: alteration of menstrual bleeding pattern, including: unscheduled uterine bleeding decreased uterine bleeding increased scheduled uterine bleeding female genital tract bleeding ,amenorrhea , genital discharge , vulvovaginitis , breast pain , benign ovarian cyst and associated complications , dysmenorrhea , Gastrointestinal disorders abdominal/pelvic pain, headache/migraine , back pain , acne , depression Alternative options were discussed with the patient including but not limited: control pills, patch, NuvaRing, Depo-medroxyprogesterone acetate, Nexplanon, copper IUD, sterilization, vasectomy, others The procedure was explained in detail to patient , at the end patient signed the informed consent obtained. A no touch technique was used throughout the procedure. A speculum was placed into vagina and cervix was cleaned with betadine). A tenaculum was placed. A plastic sound was advanced through the external and internal os until it reached the fundus of the uterus, the depth was 8 cm. The sound was then withdrawn. The IUD was loaded in a sterile manner and advanced into position. The string was visualized and cut to 3 cm. Tenaculum site hemostatic. All instruments removed from vagina. Patient tolerated the procedure well. NO complications were noted. Patient was instructed to call for fever over 100.4, significant pain unrelieved by Motrin, IUD expulsion, heavy bleeding, or abnormal discharge. In addition, the following clinical considerations were discussed with the patient to call for removal: A stroke or heart attack ,Very severe or migraine headaches ,Unexplained fever ,Yellowing of the skin or whites of the eyes, as these may be signs of serious liver problems , or suspected , Pelvic pain or pain during sex ,HIV positive seroconversion in herself or her partner , Possible exposure to sexually transmitted infections Unusual vaginal discharge or genital sores , severe vaginal bleeding or bleeding that lasts a long time, or if she misses a menstrual period, Inability to feel Mirena's threads Counseled the patient that the IUD does not protect against STI's, recommended use of condoms for the first 7 days post insertion and explained to the patient that condoms are recommended for patients at risk for sexually transmitted infections. Informed the patient that Mirena IUD is FDA approved for 8 years for contraception for 5 years for the treatment of heavy menses Instructed the patient to schedule a Follow up appointment in 4 to 6 weeks following insertion. This note was generated with a voice recognition program. Some errors may have been overlooked during the review of this note. Sometimes these errors may affect the content or meaning of a given sentence. 80905-TIH Insertion Procedure code (CPT) selection complete Office Meds Mirena 21 mcg/24 hr (up to 8 years) 52 mg intrauterine device Performing Provider: Contreras Corea MD Performing Location[place] [facility] [place] [facility] Documented (not given) by: Contreras Corea MD on 08/02/25 15:18 Dose Route Admin Location Dispensed Lot Number Expiration Date [facility] device intrauterine ea Total Dispensed Waste n/a n/a Results AMB Test Urine AMB Test Urine Negative Last Edit by Clarissa Alcazar CMA on 15:15 Assessment & Plan Assessment & Plan (1) Abnormal uterine bleeding (AUB): Code(s): N93.9 - Abnormal uterine and vaginal bleeding, unspecified Category: Medical Plan: Discussed with the patient the results the ultrasound, all questions answered the patient verbalized understanding. Mirena IUD inserted, see procedure note Orders: Orders AMB HCG Urine Test Today Z32.02 - Encounter for test, result negative AMB IUD Insertion/Removal - Practice Supplied Today N93.9 - Abnormal uterine and vaginal bleeding, unspecified Medications: New Mirena (levonorgestrel) 1 device intrauterine ONCE 1 ea 0RF IUD insertion NS N93.9 - Abnormal uterine and vaginal bleeding, unspecified Coding Level of Care Code Est Pt Level 3 (34676) Procedure Only Diagnoses Abnormal uterine bleeding (AUB) N93.9 CPT Codes Details - CPT: 77781-HAW Insertion ([id number])
[2025-08-02 14:49] VITALS: BP 106/62; BMI 29.1
--- OUTSIDE RECORDS SUMMARY | 2025-08-02 18:17 | XMS_ITS | Patient Health Record ---
[facility] Address [address] [place] [address] Care Team Providers Care Human Factors Advisor Lead Name Role Phone Sudeep KINNEY, Jess Primary Care Provider Unavail able Kenia John Unavailable [phone] Allergies Allergen (clinical drug ingredient) Drug/Non Drug [...] Problem Acquired hammer toe of right foot (8435049939050 105) Hammer toe of right foot (M20.41) Active confirmed Problem Non-pressure ulcer of right lower extremity, limited to breakdown of skin (L97.911) Active confirmed Plan Of Treatment No Information Insurance Providers Payer Name Payer Address Payer Phone Subscriber Number Group Number Insured Name Patient Relationship to Insured Coverage Start Date Coverage End Date [facility] [address] [place] [address] [id number] Arlin Ruiz Self - patient is the insured Medical (General) History Medical History History ICD Code depression Surgical History Surgery Date(Month/Year) wisdom teeth extraction Tooth extraction 05/2021
--- OUTSIDE RECORDS SUMMARY | 2025-08-02 18:17 | XMS_ITS | Patient Health Record ---
Author Organization [facility] Address [address] [place] [address] Care Team Providers Care Churn Drill Operator Name Role Phone Jorge Staples [phone] Reason For Referral No Information Social History [...] Coverage Start Date Coverage End Date [facility] [address] [place], [place] [id number] Arlin Ruiz Self - patient is the insured 9
== END 2025-08-02 15:26 | disposition home or self-care (01) ==
LOC: HO.HWS 14:24
PROVIDERS: PCP Internal Medicine; Visit Provider Obstetrics & Gynecology
DX: Z30.430 Encounter for insertion of intrauterine contraceptive device (principal); N93.9 Abnormal uterine and vaginal bleeding, unspecified; Z32.02 Encounter for pregnancy test, result negative
CPT/HCPCS: 58300; 99213

== ENCOUNTER → 2025-08-02 14:23 | Outpatient (BNVA) | payer OTHER, SELFPAY | PROVIDERS: PCP Internal Medicine; Visit Provider Obstetrics & Gynecology | DX: Z30.430 Encounter for insertion of intrauterine contraceptive device (principal); N93.9 Abnormal uterine and vaginal bleeding, unspecified; Z32.02 Encounter for pregnancy test, result negative | CPT/HCPCS: 58300; 81025; 99212; J7298 ==

== ENCOUNTER 2025-08-08 10:50 | Outpatient (REF) | payer OTHER, SELFPAY ==
--- NOTE | ~2025-08-08 | MM_ITS ---
EXAMINATION(S): MM DIAGNOSTIC DIGITAL BREAST TOMOSYNTHESIS, LEFT CLINICAL INFORMATION: Left breast pain. Mastodynia. According to the patient, the pain started on June 26. It started superior, went medial and inferior and now is everywhere . COMPARISON: Comparison made to multiple prior, most recent bilateral mammogram on January 22, 2025, and most remote October 23, 2021. TECHNIQUE: Digital breast tomosynthesis is performed in both the mediolateral oblique and craniocaudal views along with computer-aided detection (CAD). Synthesized 2D images are generated from the tomosynthesis. FINDINGS: BREAST COMPOSITION: There are scattered areas of fibroglandular density. LEFT BREAST: No significant masses, suspicious calcifications or other abnormalities are seen. No interval changes from January 2025. Given the fact that the pain was diffuse, and not focal, limited ultrasound was not performed. MM/MM tomosynthesis diagnostic LT IMPRESSION: LEFT BREAST: Negative, no mammographic evidence of malignancy. Clinical follow-up is recommended for the history of diffuse left breast pain. Otherwise, normal interval follow-up screening mammogram is expected in January 2026. ASSESSMENT: BI-RADS: Category 1: Negative RECOMMENDATION: 1. Patient should be managed based on the clinical impression. 2. Otherwise, routine annual screening mammography. Results were provided to the patient at time of visit by the technologist. This patient's information was entered into a reminder system with a target due date for their next mammogram. Electronically signed by: Shwetha Alonso MD 08/08/2025 11:36 AM [facility]
== END 2025-08-08 10:51 | disposition home or self-care (01) ==
LOC: HO.MAMMO 10:50
PROVIDERS: PCP Internal Medicine; Visit Provider Internal Medicine
DX: N64.4 Mastodynia (principal)
CPT/HCPCS: 77061; 77065

== ENCOUNTER → 2025-08-08 11:00 | Outpatient (BNV) | payer OTHER, SELFPAY | PROVIDERS: PCP Internal Medicine; Visit Provider Radiology Body Imaging | DX: N64.4 Mastodynia (principal) | CPT/HCPCS: 77061; 77065 ==

== ENCOUNTER 2025-08-11 14:57 | Outpatient (AMB) | payer OTHER, SELFPAY ==
--- NOTE | 2025-08-11 14:59 | A.OFFVIS_ITS ---
Vital Signs 08/11/25 15:09 Height 5 ft 5 in Weight 176 lb 4 oz BMI 29.3 BP 118/58 L Blood Pressure Location Rt brachial Position Sitting Pulse 92 Intake Visit Reasons: mastodynia Intake Note: Patient presents for an assessment for mastodynia. Pt c/o; reports pain UIQ left breast, denies discharge from nipple, denies change in size or shape, denies inverted nipple, intermittent pain/discomfort. Para Professional Required: No Accompanied by: Spouse Allergies gold sodium thiomalate Adverse Reaction (Severe, Verified 08/11/25 15:16) Rash adhesive Adverse Reaction (Verified 08/11/25 15:16) Redness of Skin HPI HPI mastodynia: Details: [age] year old female referred for left breast pain . She describes sharp pain throughout her left breast 1-2 months now. She says that sometimes this can be constant and she describes this has very annoying. She denies any previous trauma to the breast . She denies any discharge from the nipple She denies any palpable mass Review of her records show that she had screening mammograms in Jan, 2025 which did not reveal any pathology in either breasts. She had a diagnostic mammogram for the left has pain 4 days ago and again this does not suggest any pathology in the left breast. Her menarche was at age of 10. She has never been . She has regular periods. She denies any significant family history of breast cancer. [facility] Medical History Thrombocytopenia Smoker Hypothyroidism Mild recurrent major depression Physical exam Foot pain Surgical History History of colonoscopy History of esophagogastroduodenoscopy (EGD) History of tonsillectomy Family History Father No problems noted. Mother Diabetes Hypertension Stroke Heart attack Interstitial lung disease Sister Hypothyroidism Maternal Uncle Lung cancer Maternal Aunt Sarcoidosis of lung Social History Housing: House Alcohol intake: current Alcohol intake frequency: holidays/special occasions only Alcohol type: wine Patient Tobacco Use Status: Former Tobacco user Tobacco use type: Cigarette Cigarette Packs Per Day: 0.5 Cigarettes Per Day: 10.0 Years Smoked: 25 e-Cigarette/Vaping Use: Never Used Second Hand Smoke Exposure: No service: No Current occupational status: employed Current occupational exposures/hazards: No Cognitive needs: No Hearing needs: No Vision needs: Yes Review of Systems Const Denies chills and Denies fever(s) Card Denies chest pain, Denies dyspnea and Denies dyspnea on exertion Resp Denies cough, Denies dyspnea and Denies dyspnea on exertion GI Denies hematochezia and Denies change in bowel habits Denies hematuria Musc Denies back pain and Denies limited range of motion Neuro Denies focal weakness and Denies convulsions Psych Denies depression and Denies mood swings Physical Exam Vital Signs: Last Vital Signs Pulse 92 08/11/25 15:09 BP 118/58 L 08/11/25 15:09 BMI result Body Mass Index 29.3 Const General: comfortable and no acute distress Orientation/consciousness: patient oriented x3 Neck Neck: Yes no lymphadenopathy Resp Auscultation: clear to auscultation bilaterally Cardio Rhythm: regular rhythm GI Palpation (GI): Soft to palpation, nontender and no guarding Neuro General: patient oriented x3 Assessment & Plan Assessment & Plan (1) Breast pain, left: Comment: Lower inner quadrant Code(s): N64.4 - Mastodynia Category: Medical Plan: Review of her mammograms from both January 2025 and August, does not suggest any pathology on the left breast. I therefore told her that there is no surgical intervention necessary for her at this time. I explained to her that the etiology of her breast pain is uncertain but may be managed with some thumb control including with NSAIDs or acetaminophen. Other methods that can used to help relieve vas pain include wearing a well-fitting supportive bra, avoiding tobacco, eliminating caffeine, warm compresses, vitamin-E supplements he had evening [place] oil on the breast. I gave her a brochure about chronic breast pain. I can see her in the office on a p.r.n. basis. Her was with her during the visit. Coding Level of Care Code New Pt Level 3 (96656) Diagnoses Breast pain, left N64.4
[2025-08-11 15:09] VITALS: BP 118/58; PULSE 92; BMI 29.3
--- NOTE | 2025-08-11 15:24 | A.PHYSOV ---
Vital Signs 08/11/25 15:09 Height 5 ft 5 in Weight 79.946 kg BMI 29.3 BP 118/58 L Blood Pressure Location Rt brachial Position Sitting Pulse 92 Intake Visit Reasons: mastodynia Allergies gold sodium thiomalate Adverse Reaction (Severe, Verified 08/11/25 15:16) Rash adhesive Adverse Reaction (Verified 08/11/25 15:16) Redness of Skin PFSH Medical History Thrombocytopenia Smoker Hypothyroidism Mild recurrent major depression Physical exam Foot pain Surgical History History of colonoscopy History of esophagogastroduodenoscopy (EGD) History of tonsillectomy Family History Father No problems noted. Mother Diabetes Hypertension Stroke Heart attack Interstitial lung disease Sister Hypothyroidism Maternal Uncle Lung cancer Maternal Aunt Sarcoidosis of lung Social History Housing: House Alcohol intake: current Alcohol intake frequency: holidays/special occasions only Alcohol type: wine Patient Tobacco Use Status: Former Tobacco user Tobacco use type: Cigarette Cigarette Packs Per Day: 0.5 Cigarettes Per Day: 10.0 Years Smoked: 25 e-Cigarette/Vaping Use: Never Used Second Hand Smoke Exposure: No service: No Current occupational status: employed Current occupational exposures/hazards: No Cognitive needs: No Hearing needs: No Vision needs: Yes Physical Exam Vital Signs: Last Vital Signs Pulse 92 08/11/25 15:09 BP 118/58 L 08/11/25 15:09 BMI result Body Mass Index 29.3 Assessment & Plan Assessment & Plan (1) Breast pain, left: Comment: Lower inner quadrant Code(s): N64.4 - Mastodynia Category: Medical Coding Diagnoses Breast pain, left N64.4
== END 2025-08-11 15:28 | disposition home or self-care (01) ==
LOC: HO.HGS 14:58
PROVIDERS: PCP Internal Medicine; Visit Provider Surgery
DX: N64.4 Mastodynia (principal)
CPT/HCPCS: 99203

== ENCOUNTER → 2025-08-11 14:57 | Outpatient (BNVA) | payer OTHER, SELFPAY | PROVIDERS: PCP Internal Medicine; Visit Provider Surgery | DX: N64.4 Mastodynia (principal) | CPT/HCPCS: 99202 ==

== ENCOUNTER 2025-08-20 07:38 | Outpatient (REF) | payer OTHER, SELFPAY ==
--- OUTSIDE RECORDS SUMMARY | 2025-08-20 07:40 | XMS_ITS | Patient Health Record ---
Author Organization [facility] Address [address] [place] [address] Care Team Providers Care Drywall Applicator Name Role Phone Jorge Staples [phone] Reason For Referral No Information Social History [...] Insured Coverage Start Date Coverage End Date [facility] [address] [place], [place] [id number] [phone] [id number] Arlin Ruiz Self - patient is the insured 9
--- OUTSIDE RECORDS SUMMARY | 2025-08-20 07:40 | XMS_ITS | Patient Health Record ---
Author Organization [facility] Address [address] [place] [address] Care Team Providers Care Slide Developer Name Role Phone Sudeep KINNEY, Jess Primary Care Provider Unavail able Kenia John Unavailable [phone] Allergies Allergen (clinical drug ingredient) Drug/Non Drug [...] Problem Acquired hammer toe of right foot ([id number] 105) Hammer toe of right foot (M20.41) Active confirmed Problem Non-pressure ulcer of right lower extremity, limited to breakdown of skin (L97.911) Active confirmed Plan Of Treatment No Information Insurance Providers Payer Name Payer Address Payer Phone Subscriber Number Group Number Insured Name Patient Relationship to Insured Coverage Start Date Coverage End Date [facility] [address] [place] [address] [id number] Arlin Ruiz Self - patient is the insured Medical (General) History Medical History History ICD Code depression Surgical History Surgery Date(Month/Year) wisdom teeth extraction Tooth extraction 05/2021
[2025-08-20 09:09] LABS: Alanine Aminotransferase 49 U/L (0-31); Albumin Level 4.2 g/dL (3.5-5.0); Alkaline Phosphatase 71 U/L (39-117); Aspartate Amino Transferase 33 U/L (5-31); Total Protein 6.4 g/dL (6.5-8.0)
== END 2025-08-20 07:39 | disposition home or self-care (01) ==
LOC: HO.LAB 07:38
PROVIDERS: PCP Internal Medicine; Visit Provider Internal Medicine
DX: R74.01 Elevation of levels of liver transaminase levels (principal)
CPT/HCPCS: 36415; 80076

== ENCOUNTER 2025-08-23 15:53 | Outpatient (AMB) | payer OTHER, SELFPAY ==
--- NOTE | 2025-08-23 16:02 | A.OFFVIS_ITS ---
Vital Signs 08/23/25 16:07 Height 5 ft 5 in Weight 176 lb BMI 29.3 BP 118/74 Intake Visit Reasons: breast exam Social Insurance Specialist Required: No Information Interpreted: non-clinical & clinical Speedboat Operator: Speedboat Operator Present (Clarissa PHAN) Accompanied by: Spouse Allergies gold sodium thiomalate Adverse Reaction (Severe, Verified 08/23/25 16:08) Rash adhesive Adverse Reaction (Verified 08/23/25 16:08) Redness of Skin HPI Comments Details: Presenting for follow-up left breast pain. diagnostic mammogram was BI-RADS 1 Surgical consult: No surgical intervention needed [facility] Medical History Thrombocytopenia Smoker Hypothyroidism Mild recurrent major depression Physical exam Foot pain Surgical History History of colonoscopy History of esophagogastroduodenoscopy (EGD) History of tonsillectomy Family History Father No problems noted. Mother Diabetes Hypertension Stroke Heart attack Interstitial lung disease Sister Hypothyroidism Maternal Uncle Lung cancer Maternal Aunt Sarcoidosis of lung Social History Housing: House Alcohol intake: current Alcohol intake frequency: holidays/special occasions only Alcohol type: wine Patient Tobacco Use Status: Former Tobacco user Tobacco use type: Cigarette Cigarette Packs Per Day: 0.5 Cigarettes Per Day: 10.0 Years Smoked: 25 e-Cigarette/Vaping Use: Never Used Second Hand Smoke Exposure: No service: No Current occupational status: employed Current occupational exposures/hazards: No Cognitive needs: No Hearing needs: No Vision needs: Yes Physical Exam Chest Chest palpation & inspection: normal inspection of the chest Breast/axilla inspection: normal inspection of the breasts Assessment & Plan Assessment & Plan (1) Breast pain, left: Code(s): N64.4 - Mastodynia Category: Medical Plan: Discussed with the patient the finding on mammogram and surgical consult and 2 days breast exam. Instructions given the patient to call or come back if symptoms persist or get worse. All questions answered, the patient verbalized understanding Coding Level of Care Code Est Pt Level 3 (48834) Diagnoses Breast pain, left N64.4
[2025-08-23 16:07] VITALS: BP 118/74; BMI 29.3
--- OUTSIDE RECORDS SUMMARY | 2025-08-23 20:00 | XMS_ITS | Patient Health Record ---
Author Organization [facility] Address [address] [place] [address] Care Team Providers Care Health Science Writer Name Role Phone Jorge Staples [phone] Reason For Referral No Information Social History [...] Insured Coverage Start Date Coverage End Date [facility] [address] [place], [place] [id number] Arlin Ruiz Self - patient is the insured 9
--- OUTSIDE RECORDS SUMMARY | 2025-08-23 20:00 | XMS_ITS | Patient Health Record ---
[facility] Address [address] [place] [address] Care Team Providers Care Scoreboard Operator Name Role Phone Sudeep KINNEY, Jess Primary Care Provider Unavail able Kenia John Unavailable [phone] Allergies Allergen (clinical drug ingredient) Drug/Non Drug [...] Problem Acquired hammer toe of right foot ([id number] 105) Hammer toe of right foot (M20.41) Active confirmed Problem Non-pressure ulcer of right lower extremity, limited to breakdown of skin (L97.911) Active confirmed Plan Of Treatment No Information Insurance Providers Payer Name Payer Address Payer Phone Subscriber Number Group Number Insured Name Patient Relationship to Insured Coverage Start Date Coverage End Date [facility] [address] [place] [address] [id number] Arlin Ruiz Self - patient is the insured Medical (General) History Medical History History ICD Code depression Surgical History Surgery Date(Month/Year) wisdom teeth extraction Tooth extraction 05/2021
== END 2025-08-23 16:53 | disposition home or self-care (01) ==
LOC: HO.HWS 15:53
PROVIDERS: PCP Internal Medicine; Visit Provider Obstetrics & Gynecology
DX: N64.4 Mastodynia (principal)
CPT/HCPCS: 99213

== ENCOUNTER → 2025-08-23 15:53 | Outpatient (BNVA) | payer OTHER, SELFPAY | PROVIDERS: PCP Internal Medicine; Visit Provider Obstetrics & Gynecology | DX: N64.4 Mastodynia (principal) | CPT/HCPCS: 99212 ==